=== PATIENT | female | born 1940 | race Caucasian/White ===

== ENCOUNTER 2018-09-28 16:03 | Inpatient (IN) | payer MEDICARE, MEDICAID ==
[~2018-09-28] VITALS: Ht 162.6 cm; Wt 74.7 kg
[2018-09-28 18:56] VITALS: BP 155/71
[2018-09-28 20:00] VITALS: BP 147/68
[2018-09-28] MEDS ORDERED: GLUCAGON FOR INJ 1 MG VIAL (J1610) SC PRN (20:30)
[2018-09-28] MEDS ORDERED: GLUCOSE 4 GM CHEW TABLET PO PRN (20:30)
[2018-09-28] MEDS ORDERED: DEXTROSE 50% 50 ML SYRINGE IV PRN (20:30)
[2018-09-28] MEDS ORDERED: ONDA8TAB7 PO (20:59)
[2018-09-28] MEDS ORDERED: ISOS30TA4 PO (20:59)
[2018-09-28] MEDS ORDERED: FURO20TA2 PO (20:59)
[2018-09-28] MEDS ORDERED: BUPR150T3 PO (20:59)
[2018-09-28] MEDS ORDERED: CYCL5TAB PO (20:59)
[2018-09-28] MEDS ORDERED: CARV25TA PO (20:59)
[2018-09-28] MEDS ORDERED: LORA1TAB12 PO (20:59)
[2018-09-28] MEDS ORDERED: AMLO5TAB6 PO (20:59)
[2018-09-28] MEDS ORDERED: GABA-843 PO (20:59)
[2018-09-28] MEDS ORDERED: HYDR-643 PO (20:59)
[2018-09-28] MEDS ORDERED: FOLI1TAB11 PO (20:59)
[2018-09-28] MEDS ORDERED: HUMA100I3 SC (20:59)
[2018-09-28] MEDS ORDERED: ASPI81TAEC PO (20:59)
[2018-09-28] MEDS ORDERED: SYNT25TA PO (20:59)
[2018-09-28] MEDS ORDERED: TYLE325T5 PO (20:59)
[2018-09-28] MEDS ORDERED: ABIL1TAB13 PO (20:59)
[2018-09-28] MEDS ORDERED: BRIL90TA PO (20:59)
[2018-09-28] MEDS ORDERED: OXYC-517 PO (20:59)
[2018-09-28] MEDS ORDERED: FERR1TAB8 PO (20:59)
[2018-09-28] MEDS ORDERED: PANT40TA3 PO (20:59)
[2018-09-28] MEDS ORDERED: MAGN400T2 PO (20:59)
[2018-09-28] MEDS: HumaLOG INSULIN (NovoLOG) PER UNIT SC SCH (21:00)
[2018-09-28] MEDS ORDERED: NS 1,000 ML IV SCH (21:45)
[2018-09-28] MEDS ORDERED: ONDANSETRON 4 MG TAB (S0181) PO PRN (22:00)
[2018-09-28] MEDS ORDERED: hydrOXYzine 10 MG TAB PO PRN (22:00)
--- NOTE | 2018-09-28 22:07 | REPVR ---
EXAM: CT Chest Without Contrast EXAM DATE/TIME: 09/28/2018 9:36 PM CLINICAL HISTORY: 77 years old, female; Signs and symptoms; Shortness of breath; Prior surgery; Additional info: SOB TECHNIQUE: Axial computed tomography images of the chest without intravenous contrast. All CT scans at this facility use at least one of these dose optimization techniques: automated exposure control; mA and/or kV adjustment per patient size (includes targeted exams where dose is matched to clinical indication); or iterative reconstruction. Coronal and sagittal reformatted images were created and reviewed. MIP reconstructed images were created and reviewed. COMPARISON: No relevant prior studies available. FINDINGS: Lungs: Multiple geographic okay, semiopaque and ground glass opacities in the right upper, right middle, and lower lobes may indicate multifocal pneumonitis. Parenchymal scarring and/or atelectasis left lung base. Pleural space: Small right pleural effusion. Pleural thickening left lung base. Heart: There is severe atherosclerotic calcification of the coronary arteries. Status post CABG. Pulmonary arteries: Enlarged pulmonary arteries may indicate the presence of pulmonary arterial hypertension. Aorta: The aorta demonstrates mild atherosclerotic calcification. Lymph nodes: Unremarkable. No enlarged lymph nodes. Bones/joints: Status post sternotomy with diastases of the sternum. The spine demonstrates mild degenerative changes. Soft tissues: Unremarkable. IMPRESSION: 1. Multiple geographic okay, semiopaque and ground glass opacities in the right upper, right middle, and lower lobes may indicate multifocal pneumonitis. 2. Status post sternotomy with diastases of the sternum. Electronically signed by: Ollie Richard On 09/28/2018 22:07:02 PM
[2018-09-28 22:18] LABS: HEMATOCRIT 28.8 % (36.0-47.0); HEMOGLOBIN 9.3 g/dl (12.0-15.5); MEAN CORPUSCULAR HEMOGLOBIN 29.9 pg (27.0-33.0); MEAN CORPUSCULAR HGB CONC 32.3 g/dl (32.0-36.5); MEAN CORPUSCULAR VOLUME 92.6 fl (80.0-96.0); PLATELET COUNT, AUTOMATED 243 10^3/uL (150-450); RED BLOOD COUNT 3.11 10^6/uL (4.00-5.40); WHITE BLOOD COUNT 6.9 10^3/uL (4.0-10.0)
[2018-09-28] MEDS: GABAPENTIN 300 MG CAP PO SCH (22:38)
[2018-09-28 22:40] LABS: CREATININE FOR GFR 2.91 MG/DL (0.55-1.30); GLOMERULAR FILTRATION RATE 16.7 (>39); POTASSIUM SERUM 4.2 MEQ/L (3.5-5.1)
[2018-09-28] MEDS: IPRATROPIUM 0.5MG/ALBUTEROL 2.5MG INH SOL UD 3ML (DUONEB)(J7620) NEB PRN (22:40)
[2018-09-28] MEDS: ACETAMINOPHEN TAB 650MG DOSE (2X325MG) PO PRN (22:46)
[2018-09-28] MEDS: LORazepam 1 MG TAB PO PRN (22:46)
[2018-09-28] MEDS: DOXYCYCLINE HYCLATE 100 MG in D5W MINI-BAG PLUS 100 ML IV SCH (23:36)
[2018-09-28] MEDS: NORCO, ANEXSIA 5/325MG TABLET (HYDROcodone/ACETAMINOPHEN) PO PRN (23:43)
[2018-09-29] VITALS (7 sets, daily range): BP systolic 133–165; BP diastolic 61–77
--- NOTE | 2018-09-29 00:38 | HPEPDOC ---
[facility] Medical History & Physical Date of Admission Sep 28, 2018 Attending Physician: DEANDRA HUDSON MD History and Physical CHIEF COMPLAINT: Shortness of Breath HISTORY OF PRESENT ILLNESS: Patient is a 77 year old female who was transferred to [facility] from [facility] for increased level of care due to worsening kidney function, decompensated systolic congestive heart failure, and right lobe pneumonia. She was recently hospitalized in [place] with hypothyroid, bradycardia, hypothermia, chronic systolic heart failure, altered mental status, and acute on chronic renal failure. She was discharged on 09/09/18 and sent to [facility] for rehab She was discharged home on 09/23/2018. She subsequently presented to the [facility] emergency department after developing nasal congestion, cough, and shortness of breath. The patient had indicated that there was confusion regarding her medications and she had not received lasix for several days as well as several of her blood pressure medications. In the [facility] emergency department the patient was found to have an elevated BNP with abnormal lung sounds and felt to be in CHF exacerbation. Additionally, chest x-ray revealed a right perihilar pneumonia. The patient had been afebrile and without a white count. She was subsequently ad mitted. At [facility] she received IV Azithromycin and IV Rocephin for suspected right perihilar pneumonia. The patient was treated for possible CHF with aggressive diuresis with IV lasix. Patient does have acute on chronic renal failure and was found to have an increasing Cr from 2.5 to 2.84. Additionally, the patient was anemic likely secondary to her renal failure and received 2 units of PRBC. The patient received an additional 80 mg IV lasix and was transferred to [facility]. The patient currently follows with Dr. Yoo of cardiology. He was made aware of the case. Upon arrival at [facility] the patient stated that she continues to feel short of breath. She denies any fevers or chills. She does complain of pain in her left leg and right thigh. She states that she frequently gets cramps there. She denies any shortness of breath. She does continue to have a dry cough and denies any sputum production or congestion at this time. Patient did receive a CT chest w/o contrast upon arrival to discern if she has a true pneumonia vs a pleural effusion. Her Chest Ct revealed multiple semiopaque and ground glass opacities in the right upper, right middle, and lower lobes suggestive of multifocal pneumonia. Patient was subsequently started on IV doxycycline and Rocephin. PAST MEDICAL HISTORY: 1. Systolic Congestive Heart Failure (EF 39% 08/01/2018) 2. DMII 3. Hypertension 4. Peripheral Neuropathy 5. CAD with stent placement 6. CKD Stage IV 7. Hypothyroidism 8. Peripheral Artery Disease 9. Depression PAST SURGICAL HISTORY: 1. CAD with Stents placed. Last stent placed 1 year ago 2. BKA of right lower extremity SOCIAL HISTORY: Denies smoking, alcohol, or illicit drug use. Lives at home with her FAMILY HISTORY: Sister with PAD, diabetes, and CHF ALLERGIES: Please see below. REVIEW OF SYSTEMS: CONSTITUTIONAL: Denies fevers, chills, night sweats, unintentional weight loss or weight gain HEENT: Complains of cough. Denies headache CARDIOVASCULAR: Denies chest pain. Denies palpitations or feelings of the heart racing RESPIRATORY: Complains of shortness of breath at rest and with exertion. Complains of wheezing and cough. Denies sputum production. Denies hemoptysis GASTROINTESTINAL: Denies abdominal pain, diarrhea, constipation, nausea, or vomiting GENITOURINARY: Denies increased frequency or urgency SKIN: Denies rashes or lesions MUSCULOSKELETAL: Complains of pain in her left thigh. NEUROLOGICAL: Denies changes in speech or gait PSYCHIATRIC: Admits to depression and anxiety ENDOCRINE: Denies heat intolerance or cold intolerance HEMATOLOGIC/LYMPHATIC: Denies easy bruising or bleeding HOME MEDICATIONS: Please see below. PHYSICAL EXAMINATION: VITAL SIGNS: Temperature 97.7, pulse 59, respiratory rate 20, blood pressure 147/68, pulse oximetry 98% on 2L NC GENERAL APPEARANCE: Patient is awake alert and oriented. She is lying in bed comfortably and appears in no acute distress. HEENT: Atruamatic normocephalic. Eyes are non-icteric. Mucous membranes are pink and moist. Trachea is midline CARDIOVASCULAR: Normal S1, S2. Regular rate and rhythm. Distant heart sounds. No carotid bruits. No JVD LUNGS: Slightly decreased breath sounds throughout. Egophony on right. Good respiratory effort. Slight scattered wheezing. No rhonci, rales, or crackles ABDOMEN: Obese, soft, nondistended. Nontender to palpation throughout. Positive bowel sounds EXTREMITIES: BKA of right leg. Left dorsalis pedis pulse present via doppler. Decreased sensation of lower limb consistent with chronic PVD changes. Slight 1- 2mm pitting edema present in left lower extremity. NEUROLOGICAL: Speech normal PSYCHIATRIC: Mood and affect appear appropriate LABORATORY DATA: See below. IMAGING: Chest X-ray from [facility] demonstrated cardiomegaly, small bilateral pleural effusions, and a right sided perihilar infiltrate EXAM: CT Chest Without Contrast EXAM DATE/TIME: 09/28/2018 9:36 PM CLINICAL HISTORY: 77 years old, female; Signs and symptoms; Shortness of breath; Prior surgery; Additional info: SOB TECHNIQUE: Axial computed tomography images of the chest without intravenous contrast. All CT scans at this facility use at least one of these dose optimization techniques: automated exposure control; mA and/or kV adjustment per patient size (includes targeted exams where dose is matched to clinical indication); or iterative reconstruction. Coronal and sagittal reformatted images were created and reviewed. MIP reconstructed images were created and reviewed. COMPARISON: No relevant prior studies available. FINDINGS: Lungs: Multiple geographic okay, semiopaque and ground glass opacities in the right upper, right middle, and lower lobes may indicate multifocal pneumonitis. Parenchymal scarring and/or atelectasis left lung base. Pleural space: Small right pleural effusion. Pleural thickening left lung base. Heart: There is severe atherosclerotic calcification of the coronary arteries. Status post CABG. Pulmonary arteries: Enlarged pulmonary arteries may indicate the presence of pulmonary arterial hypertension. Aorta: The aorta demonstrates mild atherosclerotic calcification. Lymph nodes: Unremarkable. No enlarged lymph nodes. Bones/joints: Status post sternotomy with diastases of the sternum. The spine demonstrates mild degenerative changes. Soft tissues: Unremarkable. IMPRESSION: 1. Multiple geographic okay, semiopaque and ground glass opacities in the right upper, right middle, and lower lobes may indicate multifocal pneumonitis. 2. Status post sternotomy with diastases of the sternum. Electronically signed by: Ollie Richard On 09/28/2018 22:07:02 PM MICROBIOLOGY: Please see below. ASSESSMENT and PLAN 1. Community Acquired Pneumonia -Patient was found to havbe infiltrates in the right upper, right middle, and lower lobes suggestive of multifocal pneumonia. She does complain of shortness of breath. She has remained afebrile and does not have an elevated white count at this time. -IV Rocephin and Doxycycline -Respiratory therapy and Incentive spirometry -Will trend CBC 2. Systolic Congestive Heart Failure Decompensated -Patient has a history of CHF with systolic dysfunction. Her most recent Echo was on 08/01/2018 with an EF 39% -Patient has received aggressive diuresis at [facility]. She has n ot responded well and has had worsening renal function. She does not appear fluid overloaded on exam and may even be more dry. We will hold off on further Diuresis at this point in time. Patient has felton in place for accurate measure of I's&O's -Cardiology consult has been made. Patient follows with Dr. Yoo. He is aware of the patient -1.5L fluid restriction 3. Acute on Chronic Renal Failure -Patient was noted to have worsening renal function. Her Cr was 2.5 and increased to 2.8. -Patient has received gentle hydration. She had received 2 units of PBRCs at [facility] due to anemia likely secondary to her chronic renal failure. -Will trend Cr. -Avoid use of nephrotoxic agents 4. Anemia likely secondary to Chronic Renal Failure -Patient was found to be anemic at [facility]. She has received 2 units PBRCs. -Will trend H&H 5. Hypertension -Patient has a history of hypertension. Will continue home blood pressure medications with exception to lisinopril 6. Hypothyroidism -Will continue home levothyroxine 7. Diabetes Mellitus Type II -Sliding Scale insulin coverage 8. CAD with multiple stent placements -Continue asrpin and Brillinta 9. PVD -Pain management with Vicodin -Brillinta 10. Depression/Anxiety -Continue home medications 11. DVT prophylaxis -TEDS and Sequentials Vital Signs Vital Signs Date Time Temp Pulse Resp B/P (MAP) Pulse Ox O2 Delivery O2 Flow Rate FiO2 09/28/18 18:56 97.7 54 22 155/71 (99) 98 2.0 Home Medications Scheduled Amlodipine Besylate (Amlodipine Besylate) 5 Mg Tab, 5 MG PO DAILY Aripiprazole (Abilify) 2 Mg Tab, 2 MG PO DAILY Aspirin (Aspirin EC) 81 Mg Tabec, 81 MG PO Q2D Bupropion Hcl (Bupropion HCl Xl) 150 Mg Tab, 150 MG PO DAILY Carvedilol (Carvedilol) 25 Mg Tab, 25 MG PO BID Ferrous Sulfate (Ferrous Sulfate) 325 Mg Tab, 325 MG PO TID MORNING, LUNCH AND BEDTIME Folic Acid (Folic Acid) 1 Mg Tab, 1 MG PO DAILY TAKES AT LUNCHTIME Furosemide (Furosemide) 20 Mg Tab, 20 MG PO DAILY Gabapentin (Gabapentin) 300 Mg Cap, 300 MG PO TID Insulin Human Lispro (Humalog) 100 Unit/Ml Inj, 1 DOSE SC ACHS PER SLIDING SCALE Isosorbide Mononitrate (Isosorbide Mononitrate ER) 30 Mg Tab, 90 MG PO QHS Levothyroxine Sodium (Synthroid) 25 Mcg Tab, 25 MCG PO DAILY Magnesium Oxide (Magnesium Oxide) 400 Mg Tab, 400 MG PO DAILY TAKES AT LUNCH Pantoprazole Sodium (Pantoprazole Sodium) 40 Mg Tab, 40 MG PO DAILY Ticagrelor Base (Brilinta) 90 Mg Tab, 90 MG PO BID Scheduled PRN Acetaminophen (Tylenol) 325 Mg Tab, 650 MG PO Q4H PRN for PAIN Cyclobenzaprine HCl (Cyclobenzaprine HCl) 5 Mg Tab, 5 MG PO TID PRN for MUSCLE SPASMS Hydroxyzine HCl (Hydroxyzine HCl) 10 Mg Tab, 10 MG PO TID PRN for ANXIETY Lorazepam (Lorazepam) 1 Mg Tab, 1 MG PO BID PRN for ANXIETY Ondansetron HCl (Ondansetron HCl) 8 Mg Tab, 8 MG PO TID PRN for NAUSEA Oxycodone HCl (Oxycodone HCl) 5 Mg Tab, 5 MG PO QID PRN for PAIN Allergies Coded Allergies: Ciprofloxacin (Verified Allergy, Mild, Itchy, 09/28/18) Atorvastatin (Verified Allergy, Unknown, 09/28/18) Metoprolol (Verified Allergy, Unknown, 09/28/18) Sulfa Antibiotics (Verified Allergy, Unknown, 09/28/18) GME ATTESTATION GME ATTESTATION My faculty preceptor for this patient encounter was physically present during the encounter and was fully available. All aspects of the patient interview, examination, medical decision making process, and medical care plan development were reviewed and approved by the faculty preceptor. The faculty preceptor is aware and concurs with the plan as stated in the body of this note and will attest to such by his/her cosignature. KARINA HOFFMAN DO Sep 28, 2018 20:56
[2018-09-29 05:44] LABS: HEMATOCRIT 26.2 % (36.0-47.0); HEMOGLOBIN 8.5 g/dl (12.0-15.5); MEAN CORPUSCULAR HEMOGLOBIN 29.5 pg (27.0-33.0); MEAN CORPUSCULAR HGB CONC 32.4 g/dl (32.0-36.5); PLATELET COUNT, AUTOMATED 223 10^3/uL (150-450); RED BLOOD COUNT 2.88 10^6/uL (4.00-5.40); WHITE BLOOD COUNT 6.4 10^3/uL (4.0-10.0)
[2018-09-29] MEDS: LEVOTHYROXINE 25MCG TABLET (0.025MG) PO SCH (05:51)
[2018-09-29 05:58] LABS: CALCIUM LEVEL 7.5 MG/DL (8.8-10.2); CREATININE FOR GFR 2.85 MG/DL (0.55-1.30); GLOMERULAR FILTRATION RATE 17.1 (>39); POTASSIUM SERUM 4.3 MEQ/L (3.5-5.1)
[2018-09-29] MEDS: HumaLOG INSULIN (NovoLOG) PER UNIT SC SCH ×4 (07:30→20:20)
[2018-09-29] MEDS: PANTOPRAZOLE 40MG TAB (PROTONIX) PO SCH (08:30)
[2018-09-29] MEDS: GABAPENTIN 300 MG CAP PO SCH ×3 (08:31→20:32)
[2018-09-29] MEDS: buPROPion **XL** TABLET 150MG (WELLBUTRIN XL) PO SCH (08:31)
[2018-09-29] MEDS: TICAGRELOR 90 MG TABLET (BRILINTA) PO SCH ×2 (08:32→20:32)
[2018-09-29] MEDS: ARIPiprazole 2 MG TAB PO SCH (08:33)
[2018-09-29] MEDS: FERROUS SULFATE 325MG TAB PO SCH ×3 (08:33→20:31)
[2018-09-29] MEDS: CARVedilol 12.5 MG TAB PO SCH ×2 (09:00→20:32)
[2018-09-29] MEDS ORDERED: amLODIPine 5 MG TAB PO SCH (09:00)
--- NOTE | 2018-09-29 09:37 | REP ---
Portable chest x-ray: Sitting AP view. History: Short of breath. Comparison is made with yesterday's chest CT. Findings: Cardiomegaly is observed unchanged. Pleural angles are sharp. There is some linear fibrosis along the left heart border versus plate-like atelectasis. Coronary artery stent material is seen. EKG electrodes are noted. There are some increased markings in the right upper lobe faintly seen corresponding to yesterday's CT parenchymal findings of an infiltrate. Subtle increased markings are seen in the left upper lobe and left base. The aorta is calcific and tortuous. Impression: Cardiomegaly. Subtle infiltrate pattern noted in the upper lobes and the left base. Electronically Signed by Joaquin Rm MD 09/29/2018 09:28 A
[2018-09-29] MEDS: IPRATROPIUM 0.5MG/ALBUTEROL 2.5MG INH SOL UD 3ML (DUONEB)(J7620) NEB PRN (10:43)
--- NOTE | 2018-09-29 10:48 | IPNPDOC ---
Text Note Date of Service The patient was seen on 09/29/18. NOTE Subjective: Patient was interviewed and examined at bedside in the PCU this morning. She reports improvement in her leg pain. Cough has improved but her throat is still sore. Denies shortness or breath or trouble breathing. REVIEW OF SYSTEMS: CONSTITUTIONAL: Denies fevers, chills, night sweats, unintentional weight loss or weight gain HEENT: Complains of cough and resultant sore throat. Denies headache, rhinorrhea or nasal congestion. CARDIOVASCULAR: Denies chest pain. Denies palpitations or feelings of the heart racing RESPIRATORY: Complains improved shortness of breath at rest. Denies sputum production. Denies hemoptysis, using 2L of O2. GASTROINTESTINAL: Denies abdominal pain, diarrhea, constipation, nausea, or vomiting GENITOURINARY: Denies increased frequency or urgency, Felton in place SKIN: Denies rashes or lesions MUSCULOSKELETAL: Complains of pain in her left thigh and foot, improved this morning NEUROLOGICAL: Denies changes in speech or gait PSYCHIATRIC: Admits to history of depression and anxiety ENDOCRINE: Denies heat intolerance or cold intolerance HEMATOLOGIC/LYMPHATIC: Denies easy bruising or bleeding Objective: Vitals: (see below) GENERAL APPEARANCE: Patient is awake alert and oriented. She is lying in bed comfortably and appears in no acute distress. HEENT: Atruamatic normocephalic. Eyes are non-icteric. Mucous membranes are pink and moist. Trachea is midline CARDIOVASCULAR: Normal S1, S2. Regular rate and rhythm. Distant heart sounds. No carotid bruits. No JVD LUNGS: Slightly decreased breath sounds throughout. Crackles with expiratory wheezing appreciated on the right. No rhonchi or rales. ABDOMEN: Obese, soft, nondistended. Nontender to palpation throughout. Positive bowel sounds EXTREMITIES: BKA of right leg. Decreased sensation of lower limb consistent with chronic PVD changes. Slight 1-2mm pitting edema still present in left lower extremity. NEUROLOGICAL: Speech normal PSYCHIATRIC: Mood and affect appear appropriate Labs (see below) Images: Chest CT (09/28/18): 1. Multiple semiopaque and ground glass opacities in the right upper, right middle, and lower lobes may indicate multifocal pneumonitis. Status post sternotomy with diastases of the sternum. Assessment/Plan 1. Community Acquired Pneumonia -Patient was found to have infiltrates in the right upper, right middle, and lower lobes suggestive of multifocal pneumonia. She does complain of shortness of breath. She has remained afebrile and does not have an elevated white count at this time. -IV Rocephin and Doxycycline -Respiratory therapy and Incentive spirometry -White count remains low this morning 2. Systolic Congestive Heart Failure Decompensated -Patient has a history of CHF with systolic dysfunction. Her most recent Echo was on 08/01/2018 with an EF 39% -We will hold off on further Diuresis at this point in time given that the patient was aggressively dialyzed prior to presentation. Patient has felton in place for accurate measure of I's&O's -Cardiology consult has been made and we appreciate their input. Patient follows with Dr. Yoo. He is aware of the patient -Remain on 1.5L fluid restriction 3. Acute on Chronic Renal Failure -Patient was noted to have worsening renal function. Improvement in Cr from 2.91 to 2.8, continue to trend Cr -Patient has received gentle hydration. She had received 2 units of PBRCs at [facility] due to anemia likely secondary to her chronic renal failure. -Avoid use of nephrotoxic agents 4. Anemia likely secondary to Chronic Renal Failure -Patient was found to be anemic at [facility]. She has received 2 units PBRCs. -Decreased H/H of 8.5/26.2 -Continue to trend H&H 5. Hypertension -Patient has a history of hypertension. Will continue home blood pressure medications with exception to lisinopril -Pressures remain soft this morning, will hold patient's carvedilol at this time 6. Hypothyroidism -Will continue home levothyroxine 7. Diabetes Mellitus Type II -Sliding Scale insulin coverage 8. CAD with multiple stent placements -Continue Aspirin and Ticagrelor 9. PVD -Pain management with Vicodin -Ticagrelor 10. Depression/Anxiety -Continue home medications DVT prophy: TEDS and Sequentials Dispo: Patient will likely be remaining in the hospital for the rest of the week and possibly the weekend. D/C pending clinical improvement. VS,Fishbone, I+O VS, Fishbone, I+O Laboratory Tests 09/28/18 22:09 Red Blood Count 3.11 L, Mean Corpuscular Volume 92.6, Mean Corpuscular Hemoglob in 29.9, Mean Corpuscular Hemoglobin Concent 32.3, Red Cell Distribution Width 17.7 H, Calcium Level 8.0 L 09/29/18 05:23 Red Blood Count 2.88 L, Mean Corpuscular Volume 91.0, Mean Corpuscular Hemoglobin 29.5, Mean Corpuscular Hemoglobin Concent 32.4, Red Cell Distribution Width 17.5 H, Calcium Level 7.5 L Vital Signs Date Time Temp Pulse Resp B/P (MAP) Pulse Ox O2 Delivery O2 Flow Rate FiO2 09/29/18 09:06 54 165/73 09/29/18 08:00 97.8 22 100 2.0 I&O- Last 24 Hours up to 6 AM 09/29/18 05:59 Intake Total 800 ml Output Total 800 ml Balance 0 ml GME ATTESTATION GME ATTESTATION My faculty preceptor for this patient encounter was physically present during the encounter and was fully available. All aspects of the patient interview, examination, medical decision making process, and medical care plan development were reviewed and approved by the faculty preceptor. The faculty preceptor is aware and concurs with the plan as stated in the body of this note and will attest to such by his/her cosignature. MANOJ VALENZUELA DO Sep 29, 2018 10:48
[2018-09-29] MEDS: DOXYCYCLINE HYCLATE 100 MG in D5W MINI-BAG PLUS 100 ML IV SCH ×2 (11:18→23:47)
[2018-09-29] MEDS ORDERED: amLODIPine 5 MG TAB PO ONE (11:30)
[2018-09-29 12:44] LABS: CALCIUM LEVEL 7.5 MG/DL (8.8-10.2); CHOLESTEROL RISK RATIO 3.416 (<5); CREATININE FOR GFR 2.82 MG/DL (0.55-1.30); GLOMERULAR FILTRATION RATE 17.3 (>39); MB/CK RELATIVE INDEX 1.07 (< OR =4); POTASSIUM SERUM 4.1 MEQ/L (3.5-5.1); TROPONIN I 0.03 NG/ML (< 0.10)
[2018-09-29] MEDS: cefTRIAXone SOD 1 GM in D5W MINI-BAG PLUS 50 ML IV SCH (13:02)
[2018-09-29] MEDS: MAGNESIUM OXIDE 400 MG TAB (MAG-OX) PO SCH (13:03)
[2018-09-29] MEDS: FOLIC ACID 1 MG TAB PO SCH (13:04)
[2018-09-29] MEDS: NORCO, ANEXSIA 5/325MG TABLET (HYDROcodone/ACETAMINOPHEN) PO PRN ×3 (13:59→20:33)
[2018-09-29] MEDS: LORazepam 1 MG TAB PO PRN (20:31)
[2018-09-29] MEDS: ISOSORBIDE MON. (IMDUR) 30 MG XR TAB PO SCH (20:32)
[2018-09-29] MEDS: ACETAMINOPHEN TAB 650MG DOSE (2X325MG) PO PRN (23:47)
[2018-09-30] VITALS (7 sets, daily range): BP systolic 140–175; BP diastolic 63–79
[2018-09-30] MEDS: NORCO, ANEXSIA 5/325MG TABLET (HYDROcodone/ACETAMINOPHEN) PO PRN ×3 (03:39→20:31)
[2018-09-30 05:36] LABS: HEMATOCRIT 24.7 % (36.0-47.0); HEMOGLOBIN 7.9 g/dl (12.0-15.5); MEAN CORPUSCULAR HEMOGLOBIN 29.7 pg (27.0-33.0); MEAN CORPUSCULAR VOLUME 92.9 fl (80.0-96.0); PLATELET COUNT, AUTOMATED 196 10^3/uL (150-450); RED BLOOD COUNT 2.66 10^6/uL (4.00-5.40); WHITE BLOOD COUNT 4.8 10^3/uL (4.0-10.0)
[2018-09-30] MEDS: LEVOTHYROXINE 25MCG TABLET (0.025MG) PO SCH (05:41)
[2018-09-30 06:04] LABS: CALCIUM LEVEL 7.4 MG/DL (8.8-10.2); CREATININE FOR GFR 3.02 MG/DL (0.55-1.30); POTASSIUM SERUM 4.3 MEQ/L (3.5-5.1)
[2018-09-30] MEDS: HumaLOG INSULIN (NovoLOG) PER UNIT SC SCH ×4 (07:30→20:32)
--- NOTE | 2018-09-30 08:42 | IPNPDOC ---
Date Seen The patient was seen on 09/30/18. Progress Note Tele: 2 second pause Plan: asymptomatic no c/o chest pain, sob, dizziness, lightheadedness, blood pressure well maintained with MAP 70 hold coreg, 12 lead ekg r/o av block, check TSH, lyme screen VS, I&O, 24H, Fishbone Vital Signs/I&O Vital Signs Date Time Temp Pulse Resp B/P (MAP) Pulse Ox O2 Delivery O2 Flow Rate FiO2 09/30/18 04:12 18 09/30/18 04:00 98.0 61 154/74 (100) 98 09/29/18 20:00 1.0 I&O- Last 24 Hours up to 6 AM 09/30/18 06:00 Intake Total 930 ml Output Total 1475 ml Balance -545 ml Laboratory Data 24H LABS Laboratory Tests 2 09/29/18 11:32: Bedside Glucose (Misc Panel) 117H 09/29/18 11:38: Anion Gap 9, Glomerular Filtration Rate 17.3L, Lactic Acid Level 1.7, Calcium Level 7.5L, Total Creatine Kinase 318H, Creatine Kinase MB 3.0, Creatine Kinase MB Relative Index 1.07, Troponin I 0.03, [id number]-[id number]-Type Natriuretic Peptide 39621F, Triglycerides Level 129, LDL Cholesterol 90, Total Cholesterol 164, Non- HDL Cholesterol (LDL + VLDL) 116, Total HDL Cholesterol 48, Cholesterol/HDL Rati o 3.416 09/29/18 16:38: Bedside Glucose (Misc Panel) 82L 09/29/18 20:15: Bedside Glucose (Misc Panel) 132H 09/30/18 05:09: Nucleated Red Blood Cells % (auto) 0.0, Anion Gap 8, Glomerular Filtration Rate 16.0L, Blood Urea Nitrogen 46H, Creatinine 3.02H, Sodium Level 135L, Potassium Level 4.3, Chloride Level 106, Carbon Dioxide Level 21, Calcium Level 7.4L CBC/BMP Laboratory Tests 09/29/18 11:38 09/30/18 05:09 Red Blood Count 2.66 L, Mean Corpuscular Volume 92.9, Mean Corpuscular Hemoglobin 29.7, Mean Corpuscular Hemoglobin Concent 32.0, Red Cell Distribution Width 17.5 H, Calcium Level 7.4 L DEANDRA HUDSON MD Sep 30, 2018 08:42
[2018-09-30 09:12] LABS: HEMATOCRIT 27.1 % (36.0-47.0); HEMOGLOBIN 8.7 g/dl (12.0-15.5)
[2018-09-30 09:37] LABS: PERCENT SATURATION 11.4 % (13.2-45.0)
[2018-09-30] MEDS: FERROUS SULFATE 325MG TAB PO SCH ×3 (10:15→20:31)
[2018-09-30] MEDS: buPROPion **XL** TABLET 150MG (WELLBUTRIN XL) PO SCH (10:15)
[2018-09-30] MEDS: GABAPENTIN 300 MG CAP PO SCH ×3 (10:15→20:30)
[2018-09-30] MEDS: ASPIRIN 81 MG ENTERIC TAB PO SCH (10:15)
[2018-09-30] MEDS: TICAGRELOR 90 MG TABLET (BRILINTA) PO SCH ×2 (10:15→20:52)
[2018-09-30] MEDS: PANTOPRAZOLE 40MG TAB (PROTONIX) PO SCH (10:15)
[2018-09-30] MEDS: amLODIPine 10 MG TAB PO SCH (10:15)
[2018-09-30] MEDS: ARIPiprazole 2 MG TAB PO SCH (10:16)
--- NOTE | 2018-09-30 10:17 | REP ---
Urinary tract sonography: History: Renal failure. Findings: Scanning of the level urinary bladder demonstrates that it is empty. A Booth catheter balloon is visible. Renal cortical echogenicity pattern is normal and renal contours are smooth on both sides. There is no evidence of hydronephrosis. Right kidney measures 9.5 x 5.1 x 4.7 cm left renal dimensions are 10.8 x 4.7 x 4.9 cm. No mass or cyst is seen. Impression: No evidence of obstructive uropathy. Urinary bladder is empty with Booth catheter. No abnormality. Electronically Signed by Joaquin Rm MD 09/30/2018 10:08 A
[2018-09-30] MEDS: DOXYCYCLINE HYCLATE 100 MG in D5W MINI-BAG PLUS 100 ML IV SCH ×2 (11:13→23:11)
--- NOTE | 2018-09-30 12:45 | IPNPDOC ---
Text Note Date of Service The patient was seen on 09/30/18. NOTE Subjective: Patient was interviewed and examined at bedside in the PCU this morning. She is in good spirits and reports improvement in her breathing and sore throat. She continues to describe some discomfort in her L leg, but reports that it has improved compared to yesterday. Her labs demonstrate continued anemia of chronic disease. She denies being SOB, dizzy, or fatigued. She has not yet had a BM in the hospital, though she shares that this is normal for her. Felton catheter in place, urine does not appear dehydrated or over concentrated. REVIEW OF SYSTEMS: CONSTITUTIONAL: Denies fevers, chills, night sweats, unintentional weight loss or weight gain HEENT: Complains of cough and resultant sore throat. Denies headache, rhinorrhea or nasal congestion. CARDIOVASCULAR: Denies chest pain. Denies palpitations or feelings of the heart racing RESPIRATORY: Complains improved shortness of breath at rest. Denies sputum production. Denies hemoptysis, no longer requiring supplemental O2 GASTROINTESTINAL: Denies abdominal pain, diarrhea, constipation, nausea, or vomiting, has yet to have BM - this is normal as she usually stools 1-2x weekly. GENITOURINARY: Denies increased frequency or urgency, Felton in place. SKIN: Denies rashes or lesions MUSCULOSKELETAL: Complains of pain in her left thigh and foot, improved over yesterday NEUROLOGICAL: Denies changes in speech, vision or hearing. She complains of continued numbness in her distal L leg, but this is not new PSYCHIATRIC: Admits to history of depression and anxiety ENDOCRINE: Denies heat intolerance or cold intolerance HEMATOLOGIC/LYMPHATIC: Denies easy bruising or bleeding Objective: Vitals: (see below) GENERAL APPEARANCE: Patient is awake alert and oriented. She is lying in bed comfortably and appears in no acute distress. HEENT: Atruamatic normocephalic. Eyes are non-icteric. Mucous membranes are pink and moist. Trachea is midline CARDIOVASCULAR: Normal S1, S2. Regular rate and rhythm. Distant heart sounds. No carotid bruits. No JVD LUNGS: Slightly decreased breath sounds throughout. Crackles with expiratory wheezing appreciated on the right. No rhonchi or rales. ABDOMEN: Obese, soft, nondistended. Nontender to palpation throughout. Positive bowel sounds EXTREMITIES: BKA of right leg. Decreased sensation of lower limb consistent with chronic PVD changes. Slight 1-2mm pitting edema still present in left lower extremity. NEUROLOGICAL: Speech normal PSYCHIATRIC: Mood and affect appear appropriate Labs (see below) Images: Chest CT (09/28/18): Multiple semiopaque and ground glass opacities in the right upper, right middle, and lower lobes may indicate multifocal pneumonitis. Status post sternotomy with diastases of the sternum. Chest XR (09/29/18): Cardiomegaly. Subtle infiltrate pattern noted in the upper lobes and the left base. Renal U/S (09/30/18): No evidence of obstructive uropathy. Urinary bladder is empty with Felton catheter. No abnormality. Assessment/Plan Tabby Sosa is a 77 year old female who was admitted for suspected community acquired pneumonia in the setting of decompensated systolic CHF. 1. Community Acquired Pneumonia -Patient was found to have infiltrates in the right upper, right middle, and lower lobes suggestive of multifocal pneumonia. She does complain of shortness of breath. She has remained afebrile and does not have an elevated white count at this time. -IV Rocephin and Doxycycline -Respiratory therapy and Incentive spirometry -White count remains low 2. Systolic Congestive Heart Failure Decompensated -Patient has a history of CHF with systolic dysfunction. Her most recent Echo was on 08/01/2018 with an EF 39% -We will hold off on further Diuresis at this point in time given that the patient was aggressively dialyzed prior to presentation. Patient has felton in place for accurate measure of I's&O's -Cardiology consult has been made and we appreciate their input. Patient follows with Dr. Yoo. He is aware of the patient -Remain on 1.5L fluid restriction 3. Asymptomatic 2-second pause on Tele - Asymptomatic no c/o chest pain, sob, dizziness, lightheadedness, - Blood pressure well maintained with MAP 70 - Hold coreg, 12 lead ekg r/o av block, check TSH, lyme screen 4. Acute on Chronic Renal Failure -Patient was noted to have worsening renal function. Cr is 3.02 today. Nephrology consulted and we appreciate their input. Continue to trend Cr. -Patient has received gentle hydration. She had received 2 units of PBRCs at [facility] due to anemia likely secondary to her chronic renal failure. -Avoid use of nephrotoxic agents 5. Anemia likely secondary to Chronic Renal Failure -Patient was found to be anemic at [facility]. She received 2 units PBRCs. -Decreased H/H of 7.9/24.7, repeat H/H shows some improvement of 8.7/27.1. -Continue to trend H&H 6. Hypertension -Patient has a history of hypertension. Will continue home blood pressure medications with exception to lisinopril -Will hold patient's carvedilol given 2-second pause on Tele -If pressures remain continue to elevate, a new medication may be necessary 7. Hypothyroidism - TSH of 7.02 today - Will continue home levothyroxine, patient's dosage may need to be increased at time of discharge 8. Diabetes Mellitus Type II -Sliding Scale insulin coverage 9. CAD with multiple stent placements -Continue Aspirin and Ticagrelor 10. PVD -Pain management with Vicodin -Ticagrelor 11. Depression/Anxiety -Continue home medications DVT prophy: TEDS and Sequentials Dispo: Patient will likely be remaining in the hospital for the rest of the week and possibly the weekend. D/C pending clinical improvement. VS,Fishbone, I+O VS, Fishbone, I+O Laboratory Tests 09/29/18 11:38 09/30/18 05:09 Red Blood Count 2.66 L, Mean Corpuscular Volume 92.9, Mean Corpuscular Hemoglobin 29.7, Mean Corpuscular Hemoglobin Concent 32.0, Red Cell Distribution Width 17.5 H, Calcium Level 7.4 L Vital Signs Date Time Temp Pulse Resp B/P (MAP) Pulse Ox O2 Delivery O2 Flow Rate FiO2 09/30/18 04:12 18 09/30/18 04:00 98.0 61 154/74 (100) 98 09/29/18 20:00 1.0 I&O- Last 24 Hours up to 6 AM 09/30/18 06:00 Intake Total 930 ml Output Total 1475 ml Balance -545 ml GME ATTESTATION GME ATTESTATION My faculty preceptor for this patient encounter was physically present during the encounter and was fully available. All aspects of the patient interview, examination, medical decision making process, and medical care plan development were reviewed and approved by the faculty preceptor. The faculty preceptor is aware and concurs with the plan as stated in the body of this note and will attest to such by his/her cosignature. MANOJ VALENZUELA DO Sep 30, 2018 06:24
[2018-09-30] MEDS: cefTRIAXone SOD 1 GM in D5W MINI-BAG PLUS 50 ML IV SCH (13:15)
[2018-09-30] MEDS: MAGNESIUM OXIDE 400 MG TAB (MAG-OX) PO SCH (13:16)
[2018-09-30] MEDS: FOLIC ACID 1 MG TAB PO SCH (13:16)
[2018-09-30 14:26] LABS: HEMATOCRIT 28.1 % (36.0-47.0); HEMOGLOBIN 9.3 g/dl (12.0-15.5)
--- NOTE | 2018-09-30 18:30 | ECHO ---
DATE OF PROCEDURE: 09/29/2018 REFERRING PHYSICIAN: Dr. Sotelo INDICATION: Dyspnea. Height 163 cm Weight 75 kg. DIMENSIONS: IVS 1.2 LV 5.1 LVPW: 1.2 LA 4.6 Aorta 3.0 IVC 2.4 Mitral E wave velocity 122, A-wave 50 E prime septal 5.9 E prime lateral 8.5. Left atrial volume index 33. FINDINGS: The study is of fair technical quality with difficult visualization. Left ventricle is of normal size. There is a wall motion abnormality involving septum and apex, possibly at least in part due to prior open heart surgery. Remaining LV segments appear to have normal mobility based on limited views. I estimate overall EF around 45-50%. Right ventricle does not appear enlarged. Left atrium is moderately enlarged. Right atrium appears grossly normal. Aortic valve is sclerotic. It has three cusps and normal mobility. Mitral valve also exhibits degenerative abnormalities with mitral annular calcifications. Tricuspid and pulmonic valves appear normal. No pericardial effusion is noted. Inferior vena cava is dilated and there is minimal collapse with respiration indicative of very high central venous pressure. Aortic root is normal. Aortic arch and abdominal aorta appear grossly normal. Doppler interrogation of aortic valve reveals no significant stenosis or insufficiency. There is mild mitral insufficiency and mild tricuspid insufficiency. Calculated pulmonary artery pressure is at least 50 mmHg corresponding to moderate pulmonary hypertension. Mitral inflow pattern and tissue Doppler imaging of mitral annulus reveal grade 2 diastolic dysfunction. CONCLUSIONS: 1. Study is of limited technical quality. 2. Normal LV size with mild LVH, septal and apical wall motion abnormality and overall EF estimated 45-50%. Grade 2 diastolic dysfunction. 3. Aortic sclerosis but no stenosis or insufficiency. 4. Mild mitral and tricuspid insufficiency. 5. Elevated central venous pressure at least moderate pulmonary hypertension. COMMENT: Subacute bacterial endocarditis (SBE) SBE prophylaxis not recommended. Study is most consistent with diastolic congestive heart failure. MTDD
[2018-09-30] MEDS: ACETAMINOPHEN TAB 650MG DOSE (2X325MG) PO PRN (18:48)
[2018-09-30] MEDS: ISOSORBIDE MON. (IMDUR) 30 MG XR TAB PO SCH (20:30)
[2018-10-01] VITALS (8 sets, daily range): BP systolic 148–185; BP diastolic 70–80
[2018-10-01 05:10] LABS: HEMOGLOBIN 9.2 g/dl (12.0-15.5); MEAN CORPUSCULAR HEMOGLOBIN 29.5 pg (27.0-33.0); MEAN CORPUSCULAR HGB CONC 32.9 g/dl (32.0-36.5); MEAN CORPUSCULAR VOLUME 89.7 fl (80.0-96.0); PLATELET COUNT, AUTOMATED 251 10^3/uL (150-450); RED BLOOD COUNT 3.12 10^6/uL (4.00-5.40); WHITE BLOOD COUNT 4.7 10^3/uL (4.0-10.0)
[2018-10-01 05:42] LABS: CALCIUM LEVEL 7.9 MG/DL (8.8-10.2); CREATININE FOR GFR 2.82 MG/DL (0.55-1.30); GLOMERULAR FILTRATION RATE 17.3 (>39); POTASSIUM SERUM 4.8 MEQ/L (3.5-5.1)
[2018-10-01] MEDS: LEVOTHYROXINE 25MCG TABLET (0.025MG) PO SCH (06:00)
[2018-10-01] MEDS: HumaLOG INSULIN (NovoLOG) PER UNIT SC SCH ×4 (07:20→21:00)
--- NOTE | 2018-10-01 08:25 | REP ---
PA and lateral chest: Comparisons are the portable chest dated 09/[address] dated 09/28/2018. The multifocal infiltrates identified by CT are less apparent on plain films. There is tenting of the pericardium on the left suggesting of pleural adhesion versus subsegmental infiltrate. Cardiac size is enlarged, unchanged. Suspect there is a coronary artery stent. Gissel, mediastinum, skeletal structures are unremarkable. Impression: Tenting of the pericardium on the left suggestive of pleural pericardial adhesion versus subsegmental infiltrate. Electronically Signed by Shawn Carmichael MD 10/01/2018 08:16 A
[2018-10-01] MEDS: **hydrALAZINE** 10 MG TAB PO SCH ×4 (09:15→20:22)
[2018-10-01] MEDS: PANTOPRAZOLE 40MG TAB (PROTONIX) PO SCH (09:15)
[2018-10-01] MEDS: buPROPion **XL** TABLET 150MG (WELLBUTRIN XL) PO SCH (09:15)
[2018-10-01] MEDS: ASCORBIC ACID 500 MG TAB PO SCH (09:15)
[2018-10-01] MEDS: GABAPENTIN 300 MG CAP PO SCH ×3 (09:15→20:21)
[2018-10-01] MEDS: FERROUS SULFATE 325MG TAB PO SCH ×3 (09:15→20:22)
[2018-10-01] MEDS: amLODIPine 10 MG TAB PO SCH (09:15)
[2018-10-01] MEDS: TICAGRELOR 90 MG TABLET (BRILINTA) PO SCH ×2 (09:15→20:22)
[2018-10-01] MEDS: ARIPiprazole 2 MG TAB PO SCH (09:15)
[2018-10-01 09:48] LABS: FREE T3 2.3 PG/ML (2.2-4.0); THYROXINE (T4) 8.3 UG/DL (4.5-12.0)
[2018-10-01] MEDS: DOXYCYCLINE HYCLATE 100 MG in D5W MINI-BAG PLUS 100 ML IV SCH ×2 (11:24→23:31)
[2018-10-01] MEDS: NORCO, ANEXSIA 5/325MG TABLET (HYDROcodone/ACETAMINOPHEN) PO PRN ×3 (11:24→21:03)
--- NOTE | 2018-10-01 11:48 | IPNPDOC ---
Text Note Date of Service The patient was seen on 10/01/18. NOTE Subjective: Patient was interviewed and examined at bedside in the PCU this morning. She does not have any acute complaints this morning and reports feeling close to her baseline functional status. Overnight she did require additional medications for pain in her L leg, which has improved by the time of examination. She reports continued non-productive cough. Denies fevers, chills, N/V. She did have a BM yesterday. Urinary catheter in place to be D/Cd. REVIEW OF SYSTEMS: CONSTITUTIONAL: Denies fevers, chills, night sweats, unintentional weight loss or weight gain HEENT: Complains of non-productive cough and resultant sore throat. Denies headache, rhinorrhea or nasal congestion. CARDIOVASCULAR: Denies chest pain. Denies palpitations or tachycardia RESPIRATORY: Continued improved shortness of breath at rest. Denies sputum production. Denies hemoptysis, no longer requiring supplemental O2 GASTROINTESTINAL: Denies abdominal pain, diarrhea, constipation, nausea, or vomiting, has yet to have BM - this is normal as she usually stools 1-2x weekly. GENITOURINARY: Denies increased frequency or urgency, Booth in place, to be D/Cd SKIN: Denies rashes or lesions MUSCULOSKELETAL: Complains of pain in her left thigh last evening, improved at time of examination NEUROLOGICAL: Denies changes in speech, vision or hearing. She complains of continued numbness in her distal L leg, but this is not new PSYCHIATRIC: Admits to history of depression and anxiety ENDOCRINE: Denies heat intolerance or cold intolerance HEMATOLOGIC/LYMPHATIC: Denies easy bruising or bleeding Objective: Vitals: (see below) GENERAL APPEARANCE: Patient is awake alert and oriented. She is lying in bed comfortably and appears in no acute distress. HEENT: Atraumatic normocephalic. Eyes are non-icteric. Mucous membranes are pink and moist. Trachea is midline CARDIOVASCULAR: Normal S1, S2. Regular rate and rhythm. Distant heart sounds. No carotid bruits. No JVD LUNGS: Slightly decreased breath sounds throughout. Crackles with expiratory wheezing appreciated on the right. No rhonchi or rales. ABDOMEN: Obese, soft, nondistended. Nontender to palpation throughout. Positive bowel sounds EXTREMITIES: BKA of right leg. Decreased sensation of lower limb consistent with chronic PVD changes. Slight 1-2mm pitting edema still present in left lower extremity. NEUROLOGICAL: Speech normal PSYCHIATRIC: Mood and affect appear appropriate Labs (see below) Images: Chest CT (09/28/18): Multiple semiopaque and ground glass opacities in the right upper, right middle, and lower lobes may indicate multifocal pneumonitis. Status post sternotomy with diastases of the sternum. Chest XR (09/29/18): Cardiomegaly. Subtle infiltrate pattern noted in the upper lobes and the left base. Renal U/S (09/30/18): No evidence of obstructive uropathy. Urinary bladder is empty with Booth catheter. No abnormality. CXR (10/01/18): Tenting of the pericardium on the left suggestive of pleural pericardial adhesion versus subsegmental infiltrate. Assessment/Plan Tabby Sosa is a 77 year old female who was admitted for suspected community acquired pneumonia in the setting of decompensated systolic CHF. 1. Community Acquired Pneumonia 2/2 RSV/Influenza A -Patient was found to have infiltrates in the right upper, right middle, and lower lobes suggestive of multifocal pneumonia. She does complain of shortness of breath. She has remained afebrile and does not have an elevated white count at this time. -IV Rocephin and Doxycycline -Respiratory therapy and Incentive spirometry -White count remains low -Blood cultures and Respiratory virus panel positive for RSV and Influenza A H-1 2. Systolic Congestive Heart Failure Decompensated -Patient has a history of CHF with systolic dysfunction. Her most recent Echo was on 08/01/2018 with an EF 39% -We will hold off on further Diuresis at this point in time given that the patient was aggressively dialyzed prior to presentation. Booth to be removed. -Cardiology consult has been made and we appreciate their input. Patient follows with Dr. Yoo. He is aware of the patient -Remain on 1.5L fluid restriction 3. Asymptomatic 2-second pause on Tele - Continued to be asymptomatic no c/o chest pain, sob, dizziness, lightheadedness, - No tele events over night - Blood pressure well maintained with MAP 70 - Lyme pending 4. Acute on Chronic Renal Failure -Patient was noted to have worsening renal function. Cr improved to 2.82 today. Nephrology consulted and we appreciate their input. Continue to trend Cr. -Patient has received gentle hydration. She had received 2 units of PBRCs at [facility] due to anemia likely secondary to her chronic renal failure. -Avoid use of nephrotoxic agents 5. Anemia likely secondary to Chronic Renal Failure -Patient was found to be anemic at [facility]. She received 2 units PBRCs. -H/H of 9.2 -Continue to trend H&H 6. Hypertension -Patient has a history of hypertension. Will continue home blood pressure medications with exception to lisinopril -Will hold patient's carvedilol given 2-second pause on Tele -If pressures remain continue to elevate, a new medication may be necessary 7. Hypothyroidism - TSH of 7.02 today - Increased Levothyroxine dosage to 37.5 mcg from 25 mcg 8. Diabetes Mellitus Type II -Sliding Scale insulin coverage 9. CAD with multiple stent placements -Continue Aspirin -Ticagrelor held last evening 10. PVD -Pain management with Vicodin -Ticagrelor 11. Depression/Anxiety -Continue home medications DVT prophy: TEDS and Sequentials Dispo: Patient will likely be remaining in the hospital for the rest of the week and possibly the weekend. D/C pending clinical improvement. VS,Fishbone, I+O VS, Fishbone, I+O Laboratory Tests 09/30/18 08:50 09/30/18 14:13 10/01/18 04:59 Red Blood Count 3.12 L, Mean Corpuscular Volume 89.7, Mean Corpuscular Hemoglobin 29.5, Mean Corpuscular Hemoglobin Concent 32.9, Red Cell Distribution Width 16.9 H, Calcium Level 7.9 L Vital Signs Date Time Temp Pulse Resp B/P (MAP) Pulse Ox O2 Delivery O2 Flow Rate FiO2 10/01/18 04:00 97.2 56 18 148/80 (102) 99 09/29/18 20:00 1.0 I&O- Last 24 Hours up to 6 AM 10/01/18 06:00 Intake Total 730 ml Output Total 1700 ml Balance -970 ml GME ATTESTATION GME ATTESTATION My faculty preceptor for this patient encounter was physically present during the encounter and was fully available. All aspects of the patient interview, examination, medical decision making process, and medical care plan development were reviewed and approved by the faculty preceptor. The faculty preceptor is aware and concurs with the plan as stated in the body of this note and will attest to such by his/her cosignature. MANOJ VALENZUELA DO Oct 01, 2018 07:18
[2018-10-01] MEDS: FOLIC ACID 1 MG TAB PO SCH (12:32)
[2018-10-01] MEDS: MAGNESIUM OXIDE 400 MG TAB (MAG-OX) PO SCH (12:32)
[2018-10-01] MEDS: cefTRIAXone SOD 1 GM in D5W MINI-BAG PLUS 50 ML IV SCH (12:35)
--- NOTE | 2018-10-01 17:29 | ECGEPIP ---
Stationary ECG Study [facility] Test Date: 2018-09-30 Pat Name: SILVIO BILL Department: Room: [place] [address] Gender: F [employer]: COOPER : 1940 Requested By: DEANDRA Ta Order Number: [id number] Reading MD: Tone Harper Measurements Intervals [place] Rate: 51 P: 7 MA: 181 QRS: 41 QRSD: 96 T: -60 QT: 440 QTc: 408 Interpretive Statements SINUS BRADYCARDIA WITH SINUS ARRHYTHMIA Septal Q waves of uncertain significance Nonspecific ST-T wave abnormalities Comparison tracing not on file Electronically Signed On 10-01-2018 17:29:40 EST by Tone Harper
[2018-10-01] MEDS ORDERED: FUROSEMIDE 40 MG/4 ML VIAL (J1940) IV ONE (18:00)
[2018-10-01] MEDS: ISOSORBIDE MON. (IMDUR) 30 MG XR TAB PO SCH (20:21)
[2018-10-01] MEDS: LORazepam 1 MG TAB PO PRN (20:22)
[2018-10-02] VITALS (7 sets, daily range): BP systolic 134–175; BP diastolic 60–78
[2018-10-02 00:07] LABS: Lyme Disease IgG/IgM Antibodie <0.91 ISR (0.00-0.90); Lyme Disease IgM Ab Quantitati <0.80 index (0.00-0.79)
[2018-10-02] MEDS: NORCO, ANEXSIA 5/325MG TABLET (HYDROcodone/ACETAMINOPHEN) PO PRN ×3 (01:13→16:33)
[2018-10-02] MEDS: hydrOXYzine 25 MG TAB PO PRN ×2 (01:13→13:46)
[2018-10-02] MEDS: ACETAMINOPHEN TAB 650MG DOSE (2X325MG) PO PRN ×2 (04:59→21:11)
[2018-10-02] MEDS: LEVOTHYROXINE 37.5MCG PER 1/2TAB (0.0375MG) PO SCH (04:59)
[2018-10-02 05:25] LABS: HEMATOCRIT 26.7 % (36.0-47.0); HEMOGLOBIN 8.7 g/dl (12.0-15.5); MEAN CORPUSCULAR HEMOGLOBIN 29.3 pg (27.0-33.0); MEAN CORPUSCULAR HGB CONC 32.6 g/dl (32.0-36.5); MEAN CORPUSCULAR VOLUME 89.9 fl (80.0-96.0); PLATELET COUNT, AUTOMATED 255 10^3/uL (150-450); RED BLOOD COUNT 2.97 10^6/uL (4.00-5.40); WHITE BLOOD COUNT 5.7 10^3/uL (4.0-10.0)
[2018-10-02 05:57] LABS: CREATININE FOR GFR 2.83 MG/DL (0.55-1.30); GLOMERULAR FILTRATION RATE 17.3 (>39); POTASSIUM SERUM 4.5 MEQ/L (3.5-5.1)
[2018-10-02] MEDS: HumaLOG INSULIN (NovoLOG) PER UNIT SC SCH ×4 (07:11→20:17)
--- NOTE | 2018-10-02 08:57 | IPNPDOC ---
Date Seen The patient was seen on 10/02/18. Progress Note SUBJECTIVE: On droplet precautions for (+) INFLUENZA on tamiflu. no fever or chills and anxious to go home. pt still w some cough but no sputum sample s/p iv ceftriaxone and iv doxy. allergy to cipro. on cefdinir. bp uncontrlled 150-170 systolic without headache changes in vision chest pain pressure tightness. off coreg due to sinus bradycardia in 50's and 2.5 SECOND SINUS PAUSE. PHYSICAL EXAMINATION: VITAL SIGNS:PLS SEE BELOW GENERAL APPEARANCE: Patient is awake alert and oriented. speaks in full sentences. no use of accessory respiratory muscles She is lying in bed comfortably and appears in no acute distress. HEENT: Atruamatic normocephalic. Eyes are non-icteric. Mucous membranes are pink and moist. Trachea is midline CARDIOVASCULAR: Normal S1, S2. bradycardic Distant heart sounds. No carotid bruits. No JVD LUNGS: Slightly decreased breath sounds throughout. Egophony on right. Good respiratory effort. Slight scattered wheezing. No rhonci, rales, or crackles ABDOMEN: Obese, soft, nondistended. Nontender to palpation throughout. Positive bowel sounds EXTREMITIES: BKA of right leg. Left dorsalis pedis pulse present via doppler. Decreased sensation of lower limb consistent with chronic PVD changes. Slight 1- 2mm pitting edema present in left lower extremity. LABORATORY DATA, MICROBIOLOGY: See below. IMAGING: Chest X-ray from [facility] demonstrated cardiomegaly, small bilateral pleural effusions, and a right sided perihilar infiltrate EXAM: CT Chest Without Contrast EXAM DATE/TIME: 09/28/2018 9:36 PM CLINICAL HISTORY: 77 years old, female; Signs and symptoms; Shortness of breath; Prior surgery; Additional info: SOB TECHNIQUE: Axial computed tomography images of the chest without intravenous contrast. All CT scans at this facility use at least one of these dose optimization techniques: automated exposure control; mA and/or kV adjustment per patient size (includes targeted exams where dose is matched to clinical indication); or iterative reconstruction. Coronal and sagittal reformatted images were created and reviewed. MIP reconstructed images were created and reviewed. COMPARISON: No relevant prior studies available. FINDINGS: Lungs: Multiple geographic okay, semiopaque and ground glass opacities in the right upper, right middle, and lower lobes may indicate multifocal pneumonitis. Parenchymal scarring and/or atelectasis left lung base. Pleural space: Small right pleural effusion. Pleural thickening left lung base. Heart: There is severe atherosclerotic calcification of the coronary arteries. Status post CABG. Pulmonary arteries: Enlarged pulmonary arteries may indicate the presence of pulmonary arterial hypertension. Aorta: The aorta demonstrates mild atherosclerotic calcification. Lymph nodes: Unremarkable. No enlarged lymph nodes. Bones/joints: Status post sternotomy with diastases of the sternum. The spine demonstrates mild degenerative changes. Soft tissues: Unremarkable. IMPRESSION: 1. Multiple geographic okay, semiopaque and ground glass opacities in the right upper, right middle, and lower lobes may indicate multifocal pneumonitis. 2. Status post sternotomy with diastases of the sternum. Electronically signed by: Ollie Richard On 09/28/2018 22:07:02 PM MICROBIOLOGY: Please see below. ASSESSMENT and PLAN Patient is a 77 year old female who was transferred to [facility] from [facility] for increased level of care due to worsening kidney function, decompensated systolic congestive heart failure, and right lobe pneumonia. She was recently hospitalized in [place] with hypothyroid, bradycardia, hypothermia, chronic systolic heart failure, altered mental status, and acute on chronic renal failure. She was discharged on 09/09/18 and sent to [facility] for rehab She was discharged home on 09/23/2018. She subs equently presented to the [facility] emergency department after developing nasal congestion, cough, and shortness of breath. The patient had indicated that there was confusion regarding her medications and she had not received lasix for several days as well as several of her blood pressure medications. In the [facility] emergency department the patient was found to have an elevated BNP with abnormal lung sounds and felt to be in CHF exacerbation. Additionally, chest x-ray revealed a right perihilar pneumonia. The patient had been afebrile and without a white count. She was subsequently admitted. At [facility] she received IV Azithromycin and IV Rocephin for suspected right perihilar pneumonia. The patient was treated for possible CHF with aggressive diuresis with IV lasix. Patient does have acute on chronic renal failure and was found to have an increasing Cr from 2.5 to 2.84. Additionally, the patient was anemic likely secondary to her renal failure and received 2 units of PRBC. The patient received an additional 80 mg IV lasix and was transferred to [facility]. The patient currently follows with Dr. Yoo of cardiology. He was made aware of the case. Upon arrival at [facility] the patient stated that she continues to feel short of breath. She denies any fevers or chills. She does complain of pain in her left leg and right thigh. She states that she frequently gets cramps there. She denies any shortness of breath. She does continue to have a dry cough and denies any sputum production or congestion at this time. Patient did receive a CT chest w/o contrast upon arrival to discern if she has a true pneumonia vs a pleural effusion. Her Chest Ct revealed multiple semiopaque and ground glass opacities in the right upper, right middle, and lower lobes suggestive of multifocal pneumonia. Patient was subsequently started on IV doxycycline and Rocephin. Influenza A/Rhinovirus infection on droplet precautions on tamiflu Community Acquired Pneumonia Patient was found to havbe infiltrates in the right upper, right middle, and lower lobes suggestive of multifocal pneumonia. She does complain of shortness of breath. She has remained afebrile and does not have an elevated white count at this time. s/p Rocephin and Doxycycline on omnicef and po doxy. Respiratory therapy and Incentive spirometry Will trend CBC IV site bleeding no recurrence, back on anticoagulation 2.5 SECOND sinus pause held coreg no recurrence Systolic Congestive Heart Failure Decompensated , repeat Echo 45% EF Patient has a history of CHF with systolic dysfunction. Her most recent Echo was on 08/01/2018 with an EF 39% Patient has received aggressive diuresis at [facility]. She has not responded well and has had worsening renal function. She does not appear fluid overloaded on exam and may even be more dry. We will hold off on further Diuresis at this point in time. Patient has felton in place for accurate measure of I's&O's Cardiology consult has been made. Patient follows with Dr. Yoo. He is aware of the patient 1.5L fluid restriction Acute on Chronic Renal Failure , at baseline creatinine Patient was noted to have worsening renal function. Her Cr was 2.5 and increased to 2.8. Patient has received gentle hydration. She had received 2 units of PBRCs at [facility] due to anemia likely secondary to her chronic renal failure. Will trend Cr.Avoid use of nephrotoxic agents Anemia likely secondary to Chronic Renal Failure Patient was found to be anemic at [facility]. She has received 2 units PBRCs. Will trend H&H Uncontrolled Hypertension Patient has a history of hypertension. Will continue home blood pressure medicat ions with exception to lisinopril. coreg held due to 2.5 second sinus pause and bradycardia. on hydralazine and isosorbide. Hypothyroidism Will continue home levothyroxine Diabetes Mellitus Type II Sliding Scale insulin coverage , consistent carbs diet CAD with multiple stent placements Continue asrpin and Brillinta PVD Pain management with Vicodin Brillinta Depression/Anxiety Continue home medications DVT prophylaxis TEDS and Sequentials VS, I&O, 24H, Fishbone Vital Signs/I&O Vital Signs Date Time Temp Pulse Resp B/P (MAP) Pulse Ox O2 Delivery O2 Flow Rate FiO2 10/02/18 04:00 97.7 67 20 162/68 (99) 99 09/29/18 20:00 1.0 I&O- Last 24 Hours up to 6 AM 10/02/18 06:00 Intake Total 1880 ml Output Total 2210 ml Balance -330 ml Laboratory Data 24H LABS Laboratory Tests 2 10/01/18 09:02: Thyroxine (T4) 8.3, Free Triiodothyronine 2.3 10/01/18 12:40: Bedside Glucose (Misc Panel) 146H 10/01/18 16:53: 10/01/18 17:13: Bedside Glucose (Misc Panel) 102 10/01/18 21:05: Bedside Glucose (Misc Panel) 149H 10/02/18 04:48: Nucleated Red Blood Cells % (auto) 0.0, Anion Gap 7L, Glomerular Filtration Rate 17.3L, Blood Urea Nitrogen 52H, Creatinine 2.83H, Sodium Level 137, Potassium Level 4.5, Chloride Level 108H, Carbon Dioxide Level 22, Calcium Level 8.0L CBC/BMP Laboratory Tests 10/02/18 04:48 Red Blood Count 2.97 L, Mean Corpuscular Volume 89.9, Mean Corpuscular Hemoglobin 29.3, Mean Corpuscular Hemoglobin Concent 32.6, Red Cell Distribution Width 16.8 H, Calcium Level 8.0 L Microbiology Microbiology 3/9/19 Blood Culture, Received Pending 10/01/18 Stool Occult Blood (JULIETTE) - Final, Complete 10/01/18 MRSA Screen, Resulted Pending 10/01/18 Respiratory Virus Panel (PCR) (JULIETTE) - Final, Resulted Influenza A H1-2009 Respiratory Syncytial Virus DEANDRA HUDSON MD Oct 02, 2018 08:57
[2018-10-02] MEDS: PANTOPRAZOLE 40MG TAB (PROTONIX) PO SCH (09:23)
[2018-10-02] MEDS: GABAPENTIN 300 MG CAP PO SCH ×3 (09:24→21:10)
[2018-10-02] MEDS: amLODIPine 10 MG TAB PO SCH (09:24)
[2018-10-02] MEDS: CEFDINIR 300 MG CAP (OMNICEF) PO SCH (09:24)
[2018-10-02] MEDS: FERROUS SULFATE 325MG TAB PO SCH ×3 (09:24→21:11)
[2018-10-02] MEDS: **hydrALAZINE** 10 MG TAB PO SCH ×3 (09:24→21:12)
[2018-10-02] MEDS: ARIPiprazole 2 MG TAB PO SCH (09:25)
[2018-10-02] MEDS: ASPIRIN 81 MG ENTERIC TAB PO SCH (09:25)
[2018-10-02] MEDS: ASCORBIC ACID 500 MG TAB PO SCH (09:25)
[2018-10-02] MEDS: buPROPion **XL** TABLET 150MG (WELLBUTRIN XL) PO SCH (09:25)
[2018-10-02] MEDS: ISOSORBIDE DIN. (ISORDIL) 20 MG TAB PO SCH ×3 (09:25→21:12)
[2018-10-02] MEDS: OSELTAMIVIR PHOSPHATE 30MG CAPSULE PO SCH ×2 (09:25→21:11)
[2018-10-02] MEDS: TICAGRELOR 90 MG TABLET (BRILINTA) PO SCH ×2 (09:25→21:12)
[2018-10-02] MEDS: DOXYCYCLINE HYCLATE 100 MG TAB PO SCH ×2 (10:31→21:11)
[2018-10-02] MEDS: MAGNESIUM OXIDE 400 MG TAB (MAG-OX) PO SCH (12:05)
[2018-10-02] MEDS: FOLIC ACID 1 MG TAB PO SCH (12:05)
[2018-10-03] VITALS (8 sets, daily range): BP systolic 140–178; BP diastolic 60–80
[2018-10-03 04:57] LABS: HEMATOCRIT 26.4 % (36.0-47.0); HEMOGLOBIN 8.7 g/dl (12.0-15.5); MEAN CORPUSCULAR HEMOGLOBIN 30.2 pg (27.0-33.0); MEAN CORPUSCULAR VOLUME 91.7 fl (80.0-96.0); PLATELET COUNT, AUTOMATED 247 10^3/uL (150-450); RED BLOOD COUNT 2.88 10^6/uL (4.00-5.40); WHITE BLOOD COUNT 5.6 10^3/uL (4.0-10.0)
[2018-10-03 05:20] LABS: CALCIUM LEVEL 7.9 MG/DL (8.8-10.2); CREATININE FOR GFR 2.65 MG/DL (0.55-1.30); GLOMERULAR FILTRATION RATE 18.6 (>39); POTASSIUM SERUM 4.7 MEQ/L (3.5-5.1)
[2018-10-03] MEDS: LEVOTHYROXINE 37.5MCG PER 1/2TAB (0.0375MG) PO SCH (06:30)
[2018-10-03] MEDS: HumaLOG INSULIN (NovoLOG) PER UNIT SC SCH ×3 (07:30→17:30)
[2018-10-03] MEDS: buPROPion **XL** TABLET 150MG (WELLBUTRIN XL) PO SCH (08:00)
[2018-10-03] MEDS: **hydrALAZINE** 10 MG TAB PO SCH (08:00)
[2018-10-03] MEDS: OSELTAMIVIR PHOSPHATE 30MG CAPSULE PO SCH (08:00)
[2018-10-03] MEDS: CEFDINIR 300 MG CAP (OMNICEF) PO SCH (08:01)
[2018-10-03] MEDS: amLODIPine 10 MG TAB PO SCH (08:01)
[2018-10-03] MEDS: GABAPENTIN 300 MG CAP PO SCH ×2 (08:01→15:22)
[2018-10-03] MEDS: ISOSORBIDE DIN. (ISORDIL) 20 MG TAB PO SCH (08:01)
[2018-10-03] MEDS: NORCO, ANEXSIA 5/325MG TABLET (HYDROcodone/ACETAMINOPHEN) PO PRN ×2 (08:02→15:21)
[2018-10-03] MEDS: PANTOPRAZOLE 40MG TAB (PROTONIX) PO SCH (08:02)
[2018-10-03] MEDS: ARIPiprazole 2 MG TAB PO SCH (08:02)
[2018-10-03] MEDS: TICAGRELOR 90 MG TABLET (BRILINTA) PO SCH (08:03)
[2018-10-03] MEDS: ASCORBIC ACID 500 MG TAB PO SCH (08:03)
[2018-10-03] MEDS: DOXYCYCLINE HYCLATE 100 MG TAB PO SCH (08:03)
[2018-10-03] MEDS: FERROUS SULFATE 325MG TAB PO SCH ×2 (08:03→15:22)
[2018-10-03] MEDS ORDERED: CEFD300CAP PO (08:24)
[2018-10-03] MEDS ORDERED: DOXY100T PO (08:24)
[2018-10-03] MEDS ORDERED: AMLO10TA5 PO (08:24)
[2018-10-03] MEDS ORDERED: OSEL30CA PO (08:24)
[2018-10-03] MEDS ORDERED: HYDR50TA PO (08:24)
[2018-10-03] MEDS ORDERED: **hydrALAZINE** 10 MG TAB PO ONE (08:30)
[2018-10-03] MEDS ORDERED: IRON SUCROSE 500 MG in NS 250 ML IV ONE (09:00)
[2018-10-03] MEDS ORDERED: IRON SUCROSE 100MG 5ML VIAL (J1756 PER 1MG) IV ONE (10:30)
--- NOTE | 2018-10-03 11:36 | CR ---
DATE OF CONSULTATION: 10/01/[address] DEANDRA HUDSON DATE OF CONSULTATION: 10/01/2018 REASON FOR CONSULTATION: Acute renal failure superimposed on chronic kidney disease. HISTORY OF PRESENT ILLNESS: Mrs. Sosa is a 77-year-old female who was admitted to [facility] on September 29 via transfer from [facility] due to acute renal failure and congestive heart failure. A nephrology consultation was requested yesterday and the rope walker on-call did attempt to see her, however, the patient was not in the room. She is seen this morning. She has known history of multiple chronic medical problems including type 2 diabetes, systolic congestive heart failure with ejection fraction just below 40%, hypertension, peripheral neuropathy, coronary artery disease with prior angioplasty and stents, history of chronic kidney disease, peripheral vascular disease, and hypothyroidism. She is admitted with congestive heart failure at this time and is being diuresed. Her kidney function was worsened due to which a nephrology consultation was requested and the patient is seen this morning. PAST MEDICAL HISTORY (Significant for): 1. Longstanding type 2 diabetes. 2. Hypertension. 3. Peripheral neuropathy. 4. Systolic congestive heart failure. 5. Coronary artery disease with prior angioplasty and stents. 6. History of chronic kidney disease. 7. Hypothyroidism. 8. History of depression. PAST SURGICAL HISTORY (Significant for): 1. Coronary angioplasty with stents. 2. Coronary artery bypass surgery. 3. She has a right lower extremity amputation. MEDICATIONS (Her home medications included): - amlodipine 5 mg daily - Abilify 2 mg daily - aspirin 81 mg daily - bupropion XL 150 mg daily - carvedilol 25 mg twice a day (b.i.d.) - ferrous sulfate 325 mg b.i.d. - folic acid 1 mg daily - furosemide 20 mg daily - gabapentin 300 mg three times a day (t.i.d.) - isosorbide ER 30 mg at bedtime - Humalog insulin per sliding scale - levothyroxine 25 mcg daily - magnesium oxide 400 mg daily - pantoprazole 40 mg daily - Brilinta 90 mg b.i.d. ALLERGIES: - CIPROFLOXACIN - ATORVASTATIN - METOPROLOL - SULFA PERSONAL AND SOCIAL HISTORY: The patient denies any smoking, alcohol or drug use. FAMILY HISTORY: Significant for peripheral arterial disease, diabetes and congestive heart failure. There is no family history for end-stage renal disease. REVIEW OF SYSTEMS: The patient was short of breath on admission; however, she reports improvement since then. She denies any fever or chills. Ears, nose and throat are unremarkable. Cardiovascular system is significant for known history of systolic congestive heart failure and coronary artery disease. She denies any chest pain, orthopnea or paroxysmal nocturnal dyspnea (PND) at present. She does have some leg edema. Respiratory system is significant for multifocal pneumonia which is being treated with antibiotics. GI system is negative for nausea, vomiting or diarrhea. system is negative for dysuria or hematuria. Musculoskeletal system is significant for right lower extremity amputation just above the knee. Neurological system is significant for peripheral neuropathy. Hematological system is significant for anemia. Psychosocial system is significant for depression and anxiety. PHYSICAL EXAMINATION: Temperature 97.2 degrees Fahrenheit, heart rate 60 per minute and respiratory rate 18 per minute. Blood pressure 170/72 mmHg and oxygen saturation 99%. Head is atraumatic. Neck is supple and jugular venous distention (JVD is moderately elevated. There is no oral thrush or ulcers. Pupils are equal and reactive to light and sclerae is anicteric. Heart sounds are regular and lungs with slightly diminished breath sounds with basilar rales bilaterally. Abdomen: Soft and nontender. Bowel sounds are normal. Extremities have no cyanosis or clubbing. She has a right [id number] amputation and stump seems to be well-healed. There is 1+ edema on the left lower extremity. Neurologically, she is awake, alert and oriented times three. LABORATORY DATA: On admission, her sodium was 137, potassium 4.2, CO2 20, BUN 46 and creatinine 2.91. Glucose of 109 and calcium 8.0. Yesterday, her sodium was 135 and potassium 4.3. BUN was 46 and creatinine 3.02. Today, sodium is 134, potassium 4.8, CO2 20, BUN 48 and creatinine 2.82. Glucose 85 and calcium 7.9. WBC count is 4.7, hemoglobin 9.2 and hematocrit 28.0. Renal ultrasound done yesterday showed normal sized kidneys with right kidney 9.5 and left kidney 10.8 cm. There was no evidence for obstruction. Chest x-ray did show some subsegmental infiltrates. There is no evidence of a pleural effusion. CT scan was consistent with some multifocal infiltrates. PROBLEMS: 1. Acute renal failure superimposed on chronic kidney disease. Slight improvement in kidney function noted over the last 24 hours. She does not have any uremic symptoms and at this point I would recommend to continue monitoring renal profile at least once a day. Renal ultrasound has already been done and obstruction has been ruled out. 2. Congestive heart failure. She has known history of systolic congestive heart failure and now she has acute on chronic decompensated CHF. I would recommend to continue diuresing her and get a negative fluid balance. 3. Pneumonia. The patient is being treated with antibiotics and is currently afebrile. 4. Anemia. Her anemia seems to be stable and no urgent intervention. She does have iron deficiency and we will treat her with oral and intravenous iron. At present, she will continue with oral iron supplement and once she is more stable then we can give her a dose of intravenous iron. 4. Hypertension. I would suggest to continue with current antihypertensive meds and avoid KIMBERLYN inhibitor or angiotensin receptor blockers at this point due to acute renal failure. 5. Pneumonia. The patient is currently being treated with doxycycline and ceftriaxone. Thank you for involving me in the care of Mrs. Sosa. We will follow her along with you.
[2018-10-03] MEDS: FOLIC ACID 1 MG TAB PO SCH (11:54)
[2018-10-03] MEDS: MAGNESIUM OXIDE 400 MG TAB (MAG-OX) PO SCH (11:54)
[2018-10-03] MEDS ORDERED: IRON SUCROSE 25 MG in NS 50 ML IV ONE (12:00)
[2018-10-03] MEDS ORDERED: IRON SUCROSE 475 MG in NS 250 ML IV ONE (13:00)
--- NOTE | 2018-10-03 15:30 | IPN ---
DATE: 10/02/2018 Mrs. Sosa is seen this morning on her bedside. She is feeling well and denies any complaints. She reports that her dyspnea has improved and she denies any nausea, vomiting, chest pain, fever or chills. She was admitted with shortness of breath and felt to have congestive heart failure and acute kidney injury. PHYSICAL EXAMINATION: Temperature is 97.8 degrees Fahrenheit, heart rate 64 per minute and respiratory rate 18 per minute. Blood pressure 140/60 mmHg and oxygen saturation 99% on room air. Intake and output records from yesterday showed total intake 1640 and output 2000 mL. Head is atraumatic. Neck is supple and jugular venous distention (JVD) is mildly elevated. She has no oral thrush or ulcers. Lungs have few basilar rales and heart sounds are regular. Abdomen is soft and nontender and extremities have no cyanosis or clubbing. She has a right [id number] amputation. Neurologically, she is awake, alert and oriented times three. Today's labs show WBC count 5.7, hemoglobin 8.7 and hematocrit 26.7. Sodium 137, potassium 4.5, CO2 22, BUN 52 and creatinine 2.83. Calcium level 8.0. PROBLEMS: 1. Acute kidney injury superimposed on chronic kidney disease. The patient probably has mostly chronic kidney disease as her kidney function has not changed much since admission. This is probably close to her baseline function. She does not have any uremic symptoms and will definitely need to be followed up as an outpatient. She reports that she has never been seen by nephrology previously. 2. Congestive heart failure. Her volume status is only slightly decompensated now and she was given one dose of Lasix yesterday. I am going to watch her for next 24 hours as she is asymptomatic with oxygen saturation of 99% on room air. 3. Anemia. She does have iron deficiency anemia and significant chronic kidney disease. We will give her a dose of intravenous Venofer 500 mg prior to discharge. She will need follow up as an outpatient. 4. Hypertension. Blood pressure is reasonably well-controlled and no changes are being made today.
[2018-10-03] MEDS ORDERED: ISOSORBIDE DIN. (ISORDIL) 20 MG TAB PO SCH (16:00)
--- NOTE | 2018-10-03 18:48 | DS.PDOC ---
Discharge Summary General Date of Admission Sep 28, 2018 at 18:35 Date of Discharge Sep 29, 2018 Attending Physician: DEANDRA HUDSON MD Specialist/Consultants Involve: TAMY MICHELLE DO Discharge Summary ADMITTING DIAGNOSES: 1. CHF DISCHARGE DIAGNOSES: 1. Right perihilar Pneumonia 2. CHF 3. Acute on chronic renal disease COMPLICATIONS/CHIEF COMPLAINT: CHF. HISTORY OF PRESENT ILLNESS: Patient is a 77 year old female who was transferred to [facility] from [facility] for increased level of care due to worsening kidney function, decompensated systolic congestive heart failure, and right lobe pneumonia. She was recently hospitalized in [place] with hypothyroid, bradycardia, hypothermia, chronic systolic heart failure, altered mental status, and acute on chronic renal failure. She was discharged on 09/09/18 and sent to [facility] for rehab She was discharged home on 09/23/2018. She subsequently presented to the [facility] emergency department after developing nasal congestion, cough, and shortness of breath. The patient had indicated that there was confusion regarding her medications and she had not received lasix for several days as well as several of her blood pressure medications. In the [facility] emergency department the patient was found to have an elevated BNP with abnormal lung sounds and felt to be in CHF exacerbation. Additionally, chest x-ray revealed a right perihilar pneumonia. The patient had been afebrile and without a white count. She was subsequently admitted. At [facility] she received IV Azithromycin and IV Rocephin for suspected right perihilar pneumonia. The patient was treated for possible CHF with aggressive diuresis with IV lasix. Patient does have acute on chronic renal failure and was found to have an increasing Cr from 2.5 to 2.84. Additionally, the patient was anemic likely secondary to her renal failure and received 2 units of PRBC. The patient received an additional 80 mg IV lasix and was transferred to [facility]. The patient currently follows with Dr. Yoo of cardiology. He was made aware of the case. HOSPITAL COURSE: Upon arrival at [facility] the patient stated that she continues to feel short of breath. She denies any fevers or chills. She does complain of pain in her left leg and right thigh. She states that she frequently gets cramps there. She denies any shortness of breath. She does continue to have a dry cough and denies any sputum production or congestion at this time. Patient did receive a CT chest w/o contrast upon arrival to discern if she has a true pneumonia vs a pleural effusion. Her Chest Ct revealed multiple semiopaque and ground glass opacities in the right upper, right middle, and lower lobes suggestive of multifocal pneumonia. Patient was subsequently started on IV doxycycline and Rocephin. She never did have a leukocytosis. Blood cultures negative. She was transitioned to Cefdinir 300 mg and doxycycline 100 mg. Influenza swap was positive and patient was also treated with Tamiflu. She did have a two-second pause while on telemetry. Her coreg was intermittently held and no further pauses were noted. Renal US performed to assess for HEATH. No stenosis was identified. Patient remained hypertensive for much of her hospital stay, but stabilized prior to discharge with PO medications. Patient was noted to have worsening acute on chronic renal failure. Nephrology was consulted and nephrotoxic agents were avoided. Nephrology believed she had acute kidney injury superimposed on chronic kidney disease. No uremic symptoms were identified. She was given a one-time dose of Venofer for her iron- deficiency anemia. Stool occult negative. Recommend nephrology follow-up as outpatient. DISCHARGE MEDICATIONS: Please see below. ALLERGIES: Please see below. PHYSICAL EXAMINATION ON DISCHARGE: VITAL SIGNS: Please see below. CONSTITUTIONAL: Denies fevers, chills, night sweats, unintentional weight loss or weight gain HEENT: Complains of non-productive cough and resultant sore throat. Denies headache, rhinorrhea or nasal congestion. CARDIOVASCULAR: Denies chest pain. Denies palpitations or tachycardia RESPIRATORY: Continued improved shortness of breath at rest. Denies sputum pro duction. Denies hemoptysis, no longer requiring supplemental O2 GASTROINTESTINAL: Denies abdominal pain, diarrhea, constipation, nausea, or vomiting, has yet to have BM - this is normal as she usually stools 1-2x weekly. GENITOURINARY: Denies increased frequency or urgency, Booth in place, to be D/Cd SKIN: Denies rashes or lesions MUSCULOSKELETAL: Complains of pain in her left thigh last evening, improved at time of examination. BKA of right leg. Left dorsalis pedis pulse present via doppler. Decreased sensation of lower limb consistent with chronic PVD changes. Slight 1-2mm pitting edema present in left lower extremity. NEUROLOGICAL: Denies changes in speech, vision or hearing. She complains of continued numbness in her distal L leg, but this is not new PSYCHIATRIC: Admits to history of depression and anxiety ENDOCRINE: Denies heat intolerance or cold intolerance HEMATOLOGIC/LYMPHATIC: Denies easy bruising or bleeding LABORATORY DATA: Please see below. IMAGING: Chest X-ray from [facility] demonstrated cardiomegaly, small bilateral pleural effusions, and a right sided perihilar infiltrate Chest CT: Multiple geographic okay, semiopaque and ground glass opacities in the right upper, right middle, and lower lobes may indicate multifocal pneumonitis. Status post sternotomy with diastases of the sternum. Renal US: No evidence of obstructive uropathy. Urinary bladder is empty with Booth catheter. No abnormality Echo: Echo: Normal LV size with mild LVH, septal and apical wall motion abnormality and overall EF estimated 45-50%. Grade 2 diastolic dysfunction. Aortic sclerosis but no stenosis or insufficiency.Mild mitral and tricuspid insu fficiency. Elevated central venous pressure at least moderate pulmonary hypertension ACTIVITY: As tolerated DIET: As tolerated DISPOSITION: 06 Home Health Service. DISCHARGE INSTRUCTIONS: 1. Appointment with PCP to follow-up chronic medical conditions 2. Nephrology appointment for management of CKD DISCHARGE CONDITION: Stable. TIME SPENT ON DISCHARGE: Greater than 25 minutes. Vital Signs/I&Os Vital Signs Date Time Temp Pulse Resp B/P (MAP) Pulse Ox O2 Delivery O2 Flow Rate FiO2 10/03/18 16:00 98.1 77 22 154/64 (94) 99 09/29/18 20:00 1.0 I&O- Last 24 Hours up to 6 AM 10/03/18 06:00 Intake Total 780 ml Output Total 1600 ml Balance -820 ml Laboratory Data Labs 24H Laboratory Tests 2 10/02/18 19:52: Bedside Glucose (Misc Panel) 82L 10/02/18 20:58: Bedside Glucose (Misc Panel) 95 10/03/18 04:31: Nucleated Red Blood Cells % (auto) 0.0, Anion Gap 8, Glomerular Filtration Rate 18.6L, Blood Urea Nitrogen 50H, Creatinine 2.65H, Sodium Level 139, Potassium Level 4.7, Chloride Level 110H, Carbon Dioxide Level 21, Calcium Level 7.9L 10/03/18 11:46: Bedside Glucose (Misc Panel) 109 10/03/18 17:29: Bedside Glucose (Misc Panel) 107 CBC/BMP Laboratory Tests 10/03/18 04:31 Red Blood Count 2.88 L, Mean Corpuscular Volume 91.7, Mean Corpuscular Hemoglobin 30.2, Mean Corpuscular Hemoglobin Concent 33.0, Red Cell Distribution Width 16.9 H, Calcium Level 7.9 L FSBS Laboratory Tests Test 10/02/18 19:52 10/02/18 20:58 10/03/18 11:46 10/03/18 17:29 Range/Units Bedside Glucose (Misc Panel) 82 95 109 107 83-110 MG/DL Microbiology Microbiology 10/01/18 Blood Culture - Preliminary, Resulted No Growth after 48 hours. All Specime... 10/01/18 Stool Occult Blood (JULIETTE) - Final, Complete 10/01/18 MRSA Screen - Final, Complete 10/01/18 Respiratory Virus Panel (PCR) (JULIETTE) - Final, Complete Influenza A H1-2009 Respiratory Syncytial Virus Discharge Medications Scheduled Amlodipine Besylate (Amlodipine Besylate) 10 Mg Tab, 10 MG PO DAILY Aripiprazole (Abilify) 2 Mg Tab, 2 MG PO DAILY, (Reported) Aspirin (Aspirin EC) 81 Mg Tabec, 81 MG PO Q2D, (Reported) Bupropion Hcl (Bupropion HCl Xl) 150 Mg Tab, 150 MG PO DAILY, (Reported) Cefdinir (Cefdinir) 300 Mg Cap, 300 MG PO BID Doxycycline Hyclate (Doxycycline Hyclate) 100 Mg Tab, 100 MG PO BID Ferrous Sulfate (Ferrous Sulfate) 325 Mg Tab, 325 MG PO TID, (Reported) MORNING, LUNCH AND BEDTIME Folic Acid (Folic Acid) 1 Mg Tab, 1 MG PO DAILY, (Reported) TAKES AT LUNCHTIME Furosemide (Furosemide) 20 Mg Tab, 20 MG PO DAILY, (Reported) Hydralazine HCl (Hydralazine HCl) 50 Mg Tab, 50 MG PO BID Insulin Human Lispro (Humalog) 100 Unit/Ml Inj, 1 DOSE SC ACHS, (Reported) PER SLIDING SCALE Isosorbide Mononitrate (Isosorbide Mononitrate ER) 30 Mg Tab, 90 MG PO QHS, (Reported) Levothyroxine Sodium (Synthroid) 25 Mcg Tab, 25 MCG PO DAILY, (Reported) Magnesium Oxide (Magnesium Oxide) 400 Mg Tab, 400 MG PO DAILY, (Reported) TAKES AT LUNCH Oseltamivir Phosphate (Oseltamivir Phosphate) 30 Mg Cap, 30 MG PO BID Pantoprazole Sodium (Pantoprazole Sodium) 40 Mg Tab, 40 MG PO DAILY, (Reported) Ticagrelor Base (Brilinta) 90 Mg Tab, 90 MG PO BID, (Reported) Scheduled PRN Acetaminophen (Tylenol) 325 Mg Tab, 650 MG PO Q4H PRN for PAIN, (Reported) Hydroxyzine HCl (Hydroxyzine HCl) 10 Mg Tab, 10 MG PO TID PRN for ANXIETY, (Reported) Lorazepam (Lorazepam) 1 Mg Tab, 1 MG PO BID PRN for ANXIETY, (Reported) Ondansetron HCl (Ondansetron HCl) 8 Mg Tab, 8 MG PO TID PRN for NAUSEA, (Reported) Oxycodone HCl (Oxycodone HCl) 5 Mg Tab, 5 MG PO QID PRN for PAIN, (Reported) Allergies Coded Allergies: Ciprofloxacin (Verified Allergy, Mild, Itchy, 09/28/18) Atorvastatin (Verified Allergy, Unknown, 09/28/18) Metoprolol (Verified Allergy, Unknown, 09/28/18) Sulfa Antibiotics (Verified Allergy, Unknown, 09/28/18) GME ATTESTATION GME ATTESTATION My faculty preceptor for this patient encounter was physically present during the encounter and was fully available. All aspects of the patient interview, examination, medical decision making process, and medical care plan development were reviewed and approved by the faculty preceptor. The faculty preceptor is aware and concurs with the plan as stated in the body of this note and will attest to such by his/her cosignature. MANOJ VALENZUELA DO Oct 03, 2018 18:48
[2018-10-03] MEDS ORDERED: **hydrALAZINE** 50 MG TAB PO SCH (21:00)
--- NOTE | 2018-10-04 08:19 | IPN ---
DATE OF SERVICE: 10/03/2018 Ms. Sosa is seen this morning on her bedside. She is feeling well and denies any complaints. Her dyspnea has improved and she denies any fever or chills. She has no nausea or vomiting. PHYSICAL EXAMINATION: Temperature 97.7 degrees Fahrenheit, heart rate 72 per minute and respiratory rate 18 per minute. Blood pressure 152/80 mmHg and oxygen saturation 100%. Head is atraumatic. Neck is supple and without JVD or thyroid enlargement. Heart: Sounds are regular and lungs sound clear to auscultation. Abdomen: Soft and nontender and bowel sounds are normal. Extremities have no cyanosis or clubbing. She has a remote right [id number] amputation. Neurologically she is awake, alert and oriented times three. Today's labs show WBC count 5.6, hemoglobin 8.7 and hematocrit 26.4. Platelets 247. BUN 50, creatinine 2.65. Sodium 139 and potassium 4.7. PROBLEMS: 1. Acute on chronic kidney disease. She has slight improvement in her kidney function. I feel that she has significant underlying chronic kidney disease and will need close followup as an outpatient. The patient is being advised to return to office next week. 2. Congestive heart failure. Her volume status is reasonably well-compensated at present. We will follow up as an outpatient and adjust her medications as needed. She is being advised to bring all her home medications with her. 3. Iron deficiency anemia. The patient is going to be given one dose of Venofer 500 mg prior to discharge. Nursing staff wanted to give her a test dose first before giving her a total of 500 mg. I ordered a test dose of 25 mg Venofer before giving her full dose. If she has no problems after IV infusion from renal standpoint, then she can be discharged to home and follow up in my office in 1 week.
[2018-10-06 00:07] LABS: BODY FLUID CULTURE Not Indicated (.); LEGIONELLA ANTIGEN URINE Negative (Negative); ORGANISM ID Not indicated. (.); SPECIMEN SOURCE Urine (.); URINE STREP PNEUMONIAE ANTIGEN Negative (Negative)
== END 2018-10-03 18:11 | disposition home health service (06) | DRG 682 ==
LOC: M PCU 18:35
PROVIDERS: ADMIT Internal Medicine; ATTEND General Practice
DX: N17.9 Acute kidney failure, unspecified (principal); J18.9 Pneumonia, unspecified organism; I50.23 Acute on chronic systolic (congestive) heart failure; I13.0 Hypertensive heart and chronic kidney disease with heart failure and stage 1 through stage 4 chronic kidney disease, or unspecified chronic kidney disease; N18.4 Chronic kidney disease, stage 4 (severe); E03.9 Hypothyroidism, unspecified; Z79.899 Other long term (current) drug therapy; Z79.82 Long term (current) use of aspirin; Z88.2 Allergy status to sulfonamides; Z88.8 Allergy status to other drugs, medicaments and biological substances; E11.51 Type 2 diabetes mellitus with diabetic peripheral angiopathy without gangrene; I25.10 Atherosclerotic heart disease of native coronary artery without angina pectoris; F32.9 Major depressive disorder, single episode, unspecified; Z95.2 Presence of prosthetic heart valve; Z89.511 Acquired absence of right leg below knee; D63.1 Anemia in chronic kidney disease; F41.9 Anxiety disorder, unspecified

== ENCOUNTER 2018-11-01 10:50 | Inpatient (IN) | payer MEDICARE, MEDICAID ==
[~2018-11-01] VITALS: Ht 162.6 cm; Wt 68.4 kg
[~2018-11-01 10:50] MED LIST: ABIL1TAB13 PO; AMLO10TA5 PO; AMLO5TAB6 PO; ASPI81TAEC PO; BRIL90TA PO; BUPR150T3 PO; CARV25TA PO; CEFD300CAP PO; CYCL5TAB PO; DOXY100T PO; FERR1TAB8 PO; FOLI1TAB11 PO; FURO20TA2 PO; GABA-843 PO; HUMA100I3 SC; HYDR-643 PO; HYDR50TA PO; ISOS30TA4 PO; LORA1TAB12 PO; MAGN400T2 PO; ONDA8TAB7 PO; OSEL30CA PO; OXYC-517 PO; PANT40TA3 PO; SYNT25TA PO; TYLE325T5 PO
[2018-11-01 20:30] VITALS: BP 174/82
[2018-11-01] MEDS: ISOSORBIDE MON. (IMDUR) 30 MG XR TAB PO SCH (21:00)
[2018-11-01] MEDS ORDERED: TICAGRELOR 90 MG TABLET (BRILINTA) PO SCH (21:00)
[2018-11-01] MEDS: HumaLOG INSULIN (NovoLOG) PER UNIT SC SCH (21:00)
[2018-11-01 21:41] LABS: HEMATOCRIT 31.9 % (36.0-47.0); HEMOGLOBIN 10.4 g/dl (12.0-15.5); MEAN CORPUSCULAR HEMOGLOBIN 30.6 pg (27.0-33.0); MEAN CORPUSCULAR HGB CONC 32.6 g/dl (32.0-36.5); MEAN CORPUSCULAR VOLUME 93.8 fl (80.0-96.0); PLATELET COUNT, AUTOMATED 283 10^3/uL (150-450); WHITE BLOOD COUNT 6.8 10^3/uL (4.0-10.0)
[2018-11-01] MEDS ORDERED: GLUCAGON FOR INJ 1 MG VIAL (J1610) SC PRN (22:00)
[2018-11-01] MEDS ORDERED: DEXTROSE 50% 50 ML SYRINGE IV PRN (22:00)
[2018-11-01] MEDS ORDERED: GLUCOSE 4 GM CHEW TABLET PO PRN (22:00)
[2018-11-01 22:06] LABS: ALBUMIN 3.5 GM/DL (3.2-5.2); BILIRUBIN,TOTAL 0.4 MG/DL (0.2-1.0); CALCIUM LEVEL 8.9 MG/DL (8.8-10.2); CREATININE FOR GFR 2.55 MG/DL (0.55-1.30); GLOMERULAR FILTRATION RATE 19.4 (>39); POTASSIUM SERUM 3.9 MEQ/L (3.5-5.1); TOTAL PROTEIN 7.2 GM/DL (6.4-8.2)
[2018-11-01 23:00] VITALS: O2SAT 99
--- NOTE | 2018-11-01 23:00 | HPEPDOC ---
[facility] Medical History & Physical Date of Admission Nov 01, 2018 History and Physical CHIEF COMPLAINT: SOB, weakness HISTORY OF PRESENT ILLNESS: Tabby Sosa is a 78-year-old female with past medical history of congestive heart failure (EF 39% , 07/2018) and type 2 diabetes with chronic kidney disease who presents as a transfer from outside hospital for pneumonia necessitating pulmonary consultation. The patient was recently admitted to [facility] on 09/28/2018 with shortness of breath, found to have community-acquired pneumonia, decompensated systolic congestive heart failure and acute on chronic renal failure. She was treated with IV doxycycline and Rocephin and was appropriately diuresed. She was transitioned to oral Cefdinir and oral doxycycline and was discharged home and told to follow-up with her primary care doctor. She was also seen by nephrology for her chronic renal failure and iron deficiency anemia which was stable on discharge. Today she reports she went to the ED at the outside hospital for several days of worsened shortness of breath and weakness, decreased appetite and subjective fevers. Reportedly she did not take her antibiotics and did not finish the courses when she was discharged. At the outside hospital she was also found to have small pleural effusions bilaterally. She does report some shortness of breath and difficulty laying flat, but this is not worse than normal. She is not on any oxygen at home PAST MEDICAL HISTORY: 1. Systolic Congestive Heart Failure (EF 39% 08/01/2018) 2. DMII 3. Hypertension 4. Peripheral Neuropathy 5. CAD with stent placement 6. CKD Stage IV 7. Hypothyroidism 8. Peripheral Artery Disease 9. Depression PAST SURGICAL HISTORY: 1. CAD with Stents placed. Last stent placed 1 year ago 2. BKA of right lower extremity SOCIAL HISTORY: Denies smoking, alcohol, or illicit drug use. Lives at home with her FAMILY HISTORY: Sister with PAD, diabetes, and CHF ALLERGIES: Please see below. REVIEW OF SYSTEMS: A 10 point review of systems was performed and is negative other than what is mentioned in the [facility] HOME MEDICATIONS: Please see below. PHYSICAL EXAMINATION: VITAL SIGNS: Temperature 98.1, pulse 90, respiratory rate 18, blood pressure 174/82, pulse oximetry 95 % on 3LNC GENERAL APPEARANCE: Calm, cooperative, not in any acute distress HEENT: Moist mucous membranes, no thyromegaly CARDIOVASCULAR: Regular rate and rhythm, no murmurs, rubs or gallops LUNGS: Fine crackles at the bases up to the middle lobes bilaterally ABDOMEN: Soft, nontender, no organomegaly, no masses MUSCULOSKELETAL: Resolved extremities well EXTREMITIES: Patient has a right BKA. No clubbing, cyanosis or edema NEUROLOGICAL: No focal deficits appreciated PSYCHIATRIC: Normal mood, normal affect LABORATORY DATA: See below. IMAGING: CXR read pending MICROBIOLOGY: Please see below. ASSESSMENT: This is a 78-year-old female with a history of congestive heart failure, CK D, diabetes who presents as transfer from outside hospital for pulmonary evaluation secondary to trace pleural effusions found on chest x-ray and possible pneumonia. She will be admitted to the PCU for continuous monitoring. PLAN: Systolic Heart Failure exacerbation History of pleural effusions and congestive heart failure: -Chest x-ray on admission demonstrates trace pleural effusions bilaterally. They do not appear big enough to be drained at this time. -Patient will be placed on fluid restriction of 1800 mL per day with strict I and O -Patient will probably need a Booth in place -Continue to titrate oxygen for oxygen saturation greater than 90% -BNP on admission found to be 61,060 Acute on chronic renal failure: -Suggest nephrology referral in the morning. The patient does appear to be at baseline creatinine of 2.5 with BUN of 39 -All other electrolytes are within normal limits History of anemia of chronic disease -Hemoglobin on admission found to be 10.4. No need for transfusion at this time Type 2 diabetes: -Patient will be placed on SSI with hypoglycemic protocol -Consistent carbohydrate diet and no salt Hypothyroidism: -Continue home levothyroxine History of CAD with multiple stent placements -Continue home aspirin and Brilinta DVT prophylaxis: Teds and sequentials. Vital Signs Vital Signs Date Time Temp Pulse Resp B/P (MAP) Pulse Ox O2 Delivery O2 Flow Rate FiO2 11/01/18 20:30 98.1 90 18 174/82 (112) 95 3.0 Laboratory Data Labs 24H Laboratory Tests 2 11/01/18 21:20: Nucleated Red Blood Cells % (auto) 0.0, Anion Gap 7L, Glomerular Filtration Rate 19.4L, Blood Urea Nitrogen 39H, Creatinine 2.55H, Sodium Level 136, Potassium Level 3.9, Chloride Level 106, Carbon Dioxide Level 23, Calcium Level 8.9, Aspartate Amino Transf (AST/SGOT) 13, Alanine Aminotransferase (ALT/SGPT) 12, Alkaline Phosphatase 126H, Total Bilirubin 0.4, Total Protein 7.2, Albumin 3.5, [id number]-Type Natriuretic Peptide [id number], Albumin/Globulin Ratio 0.95L 11/01/18 21:51: Bedside Glucose (Misc Panel) 69L CBC/BMP Laboratory Tests 11/01/18 21:20 Red Blood Count 3.40 L, Mean Corpuscular Volume 93.8, Mean Corpuscular Hemoglobin 30.6, Mean Corpuscular Hemoglobin Concent 32.6, Red Cell Distribution Width 16.7 H, Calcium Level 8.9, Aspartate Amino Transf (AST/SGOT) 13, Alanine Aminotransferase (ALT/SGPT) 12, Alkaline Phosphatase 126 H, Total Bilirubin 0.4, Total Protein 7.2, Albumin 3.5 Home Medications Scheduled Amlodipine Besylate (Amlodipine Besylate) 10 Mg Tablet, 10 MG PO DAILY Aripiprazole (Abilify) 2 Mg Tab, 2 MG PO DAILY Aspirin (Aspirin EC) 81 Mg Tabec, 81 MG PO DAILY Bupropion Hcl (Bupropion Xl) 150 Mg Tab, 150 MG PO DAILY Carvedilol (Carvedilol) 25 Mg Tablet, 25 MG PO BID Ferrous Sulfate (Ferrous Sulfate) 325 Mg Tab, 325 MG PO TID MORNING, LUNCH AND BEDTIME Folic Acid (Folic Acid) 1 Mg Tab, 1 MG PO DAILY TAKES AT LUNCHTIME Furosemide (Furosemide) 20 Mg Tab, 20 MG PO DAILY Hydralazine HCl (Hydralazine HCl) 50 Mg Tablet, 50 MG PO BID Isosorbide Mononitrate (Isosorbide Mononitrate ER) 30 Mg Tab, 90 MG PO QHS Levothyroxine Sodium (Synthroid) 25 Mcg Tab, 25 MCG PO DAILY Lisinopril (Lisinopril) 10 Mg Tablet, 10 MG PO DAILY Magnesium Oxide (Magnesium Oxide) 400 Mg Tab, 400 MG PO DAILY TAKES AT LUNCH Pantoprazole Sodium (Pantoprazole Sodium) 40 Mg Tab, 40 MG PO DAILY Ticagrelor Base (Brilinta) 90 Mg Tab, 90 MG PO BID Triamcinolone Acet (Triamcinolone Acetonide 0.1% Crm) 80 Gm Cream..g., 1 APLCT TOP DAILY ON TAILBONE Scheduled PRN Acetaminophen (Acetaminophen) 325 Mg Tablet, 650 MG PO Q4H PRN for PAIN Albuterol Sulfate (Proair Hfa) 8.5 Gm Hfa.aer.ad, 2 PUFF INH Q6H PRN for SHORTNESS OF BREATH Dextromethorphan HBr (Daytime Cough) 5 Mg/5 Ml Syrup, 15 MG PO BID PRN for COUGH Hydroxyzine HCl (Hydroxyzine HCl) 10 Mg Tab, 10 MG PO TID PRN for ANXIETY Insulin Lispro (Humalog) 100 Unit/Ml Inj, 1 DOSE SC ACHS PRN for HIGH BLOOD SUGAR PER SLIDING SCALE Ipratropium/Albuterol Sulfate (Iprat-Albut 0.5-3(2.5) mg/3 ml) 3 Ml Ampul.neb, 1 VIAL INH Q6H PRN for SHORTNESS OF BREATH Lorazepam (Lorazepam) 1 Mg Tab, 1 MG PO BID PRN for ANXIETY Nitroglycerin (Nitroglycerin) 0.4 Mg Tab.subl, 0.4 MG SL Q5M PRN for CHEST PAIN Ondansetron HCl (Ondansetron HCl) 4 Mg Tablet, 4 MG PO BID PRN for NAUSEA Oxycodone HCl (Oxycodone HCl) 5 Mg Tab, 5 MG PO QID PRN for PAIN Allergies Coded Allergies: ciprofloxacin (Verified Allergy, Mild, ITCHY, 11/01/18) Sulfa (Sulfonamide Antibiotics) (Verified Allergy, Unknown, 11/01/18) atorvastatin (Verified Allergy, Unknown, 11/01/18) metoprolol (Verified Allergy, Unknown, 11/01/18) GME ATTESTATION GME ATTESTATION My faculty preceptor for this patient encounter was physically present during the encounter and was fully available. All aspects of the patient interview, examination, medical decision making process, and medical care plan development were reviewed and approved by the faculty preceptor. The faculty preceptor is aware and concurs with the plan as stated in the body of this note and will attest to such by his/her cosignature. ATTENDING NOTE I have reviewed the residents note and have personally examined the patient. I agree with the Residents physical examination and assessment and plan. The patient seems to have CHF exacerbation due to dietary non compliance. Unsure whether patient finished the course of antibiotics for pneumonia that was given after discharge from the last hospitalization however at present i do not feel patient has any pneumonia. She is afebrile, WBC not elevated, CXR more suggestive of fluid overload. So will not give her any antibiotics at present. KEILA SOLER MD Nov 01, 2018 23:00 SOM JIN MD Nov 06, 2018 19:38
[2018-11-01] MEDS ORDERED: ACET-908 PO (23:10)
[2018-11-01] MEDS ORDERED: AMLO10TA5 PO (23:10)
[2018-11-01] MEDS ORDERED: ONDA-195 PO (23:18)
[2018-11-01] MEDS ORDERED: HYDR-3911 PO (23:18)
[2018-11-01] MEDS ORDERED: DAYT1LIQ PO (23:18)
[2018-11-01] MEDS: HEPARIN SOD (PORCINE) 5000 UNITS/ML VIAL SC SCH (23:18)
[2018-11-01] MEDS ORDERED: IPRA0.00 INH (23:18)
[2018-11-01] MEDS: FUROSEMIDE 40 MG/4 ML VIAL (J1940) IV SCH (23:18)
[2018-11-01] MEDS ORDERED: TRIA1CR80 TOP (23:18)
[2018-11-01] MEDS ORDERED: LISI10TA4 PO (23:18)
[2018-11-01] MEDS ORDERED: NITR0.4S14 SL (23:18)
[2018-11-01] MEDS ORDERED: PROAAER10 INH (23:18)
[2018-11-01] MEDS ORDERED: CARV25TA PO (23:18)
[2018-11-01 23:59] VITALS: BP 172/79
[2018-11-02] VITALS (15 sets, daily range): BP systolic 131–156; BP diastolic 59–90; O2SAT 92–99
[2018-11-02] MEDS ORDERED: oxyCODONE 5MG TAB PO PRN ×2 (00:45)
[2018-11-02] MEDS ORDERED: **hydrALAZINE** 50 MG TAB PO SCH ×2 (00:45→09:00)
[2018-11-02] MEDS: CARVedilol 12.5 MG TAB PO SCH ×3 (00:45→21:13)
[2018-11-02] MEDS ORDERED: LISINOPRIL 10 MG TAB PO SCH ×2 (01:00→09:00)
[2018-11-02] MEDS: TICAGRELOR 90 MG TABLET (BRILINTA) PO SCH ×3 (01:12→21:13)
[2018-11-02] MEDS: amLODIPine 10 MG TAB PO SCH ×2 (01:12→09:50)
[2018-11-02] MEDS: IPRATROPIUM 0.5MG/ALBUTEROL 2.5MG INH SOL UD 3ML (DUONEB)(J7620) NEB PRN ×2 (03:34→17:38)
[2018-11-02] MEDS ORDERED: ONDANSETRON 4MG/2ML VIAL (J2405) IV PRN (03:45)
[2018-11-02 05:35] LABS: BASO % 0.3 % (0.0-1.0); EOS # 0.2 10^3/uL (0.0-0.50); EOS % 2.8 % (0.0-3.0); HEMATOCRIT 30.3 % (36.0-47.0); HEMOGLOBIN 9.8 g/dl (12.0-15.5); LYMPH # 0.8 10^3/uL (1.5-4.5); LYMPH % 12.2 % (24.0-44.0); MEAN CORPUSCULAR HEMOGLOBIN 29.6 pg (27.0-33.0); MEAN CORPUSCULAR HGB CONC 32.3 g/dl (32.0-36.5); MEAN CORPUSCULAR VOLUME 91.5 fl (80.0-96.0); MONO # 0.6 10^3/uL (0.0-0.8); MONO % 9.7 % (0.0-5.0); NEUTROPHILS # 4.7 10^3/uL (1.8-7.7); NEUTROPHILS % 74.5 % (36.0-66.0); PLATELET COUNT, AUTOMATED 278 10^3/uL (150-450); RED BLOOD COUNT 3.31 10^6/uL (4.00-5.40); WHITE BLOOD COUNT 6.3 10^3/uL (4.0-10.0)
[2018-11-02 06:01] LABS: CALCIUM LEVEL 8.7 MG/DL (8.8-10.2); CREATININE FOR GFR 2.57 MG/DL (0.55-1.30); GLOMERULAR FILTRATION RATE 19.3 (>39); POTASSIUM SERUM 3.9 MEQ/L (3.5-5.1)
--- NOTE | 2018-11-02 07:23 | REP ---
Portable chest, 10:05 p.m., single AP semi upright view: Comparison is 10/01/2018. There are bilateral pleural effusions as an interval change. There is cardiomegaly, unchanged. The lung rodriguez otherwise clear. The bela, mediastinum, skeletal structures are unremarkable. Impression: Bilateral pleural effusions. Cardiomegaly. Electronically Signed by Shawn Carmichael MD 11/02/2018 07:15 A
[2018-11-02] MEDS ORDERED: PIPERACILLIN/TAZOBACTAM SOD 3.375 GM in D5W MINI-BAG PLUS 50 ML IV SCH (07:30)
[2018-11-02] MEDS: HumaLOG INSULIN (NovoLOG) PER UNIT SC SCH ×4 (07:30→20:54)
[2018-11-02] MEDS ORDERED: amLODIPine 10 MG TAB PO SCH (09:00)
[2018-11-02] MEDS ORDERED: CARVedilol 12.5 MG TAB PO SCH (09:00)
--- NOTE | 2018-11-02 09:16 | REP ---
CHEST X-RAY: Two views. HISTORY: Pneumonia, CHF. COMPARISON STUDY: November 01, 2018. FINDINGS: Moderate cardiomegaly is observed. Bilateral pleural effusions are again seen, perhaps slightly more prominent. Pulmonary vascular congestion is noted. Findings are compatible with CHF. No josé pulmonary edema. Question discoid atelectasis left base. IMPRESSION: CHF pattern with bilateral effusions and cardiomegaly. Pulmonary vascular congestion. Pleural effusions perhaps slightly increased. Electronically Signed by Joaquin Rm MD 11/02/2018 05:25 P
[2018-11-02] MEDS: FUROSEMIDE 40 MG/4 ML VIAL (J1940) IV SCH (09:50)
[2018-11-02] MEDS: buPROPion **XL** TABLET 150MG (WELLBUTRIN XL) PO SCH (09:50)
[2018-11-02] MEDS: LEVOTHYROXINE 25MCG TABLET (0.025MG) PO SCH (09:50)
[2018-11-02] MEDS: HEPARIN SOD (PORCINE) 5000 UNITS/ML VIAL SC SCH ×2 (09:51→21:13)
[2018-11-02] MEDS: PANTOPRAZOLE 40MG TAB (PROTONIX) PO SCH (09:51)
[2018-11-02] MEDS: ARIPiprazole 2 MG TAB PO SCH (09:52)
[2018-11-02] MEDS: PIPERACILLIN/TAZOBACTAM SOD 2.25 GM in D5W MINI-BAG PLUS 50 ML IV SCH ×2 (09:53→16:20)
--- NOTE | 2018-11-02 11:54 | IPNPDOC ---
Subjective Date Seen The patient was seen on 11/02/18. Subjective Chief Complaint/HPI Patient complaining of cough and shortness of breath, Slight improvement since she came here General: Reports: Normal Appetite; Denies: Chills, Night Sweats, Fatigue, Malaise Constitutional: Denies: Chills, Fever, Night Sweats Eyes: Denies: Pain, Vision change ENT: Denies: Head Aches, Ear Pain, Dysphagia Skin: Denies: Rash, Lesions, Breakdown Pulmonary: Reports: Dyspnea, Cough Cardiovascular: Denies: Chest Pain, Palpitations, Orthopnea, Paroxysmal Noc. Dyspnea, Lt Headedness Gastrointestinal: Denies: Nausea, Vomiting, Abdominal Pain, Diarrhea, Constipation Genitourinary: Denies: Dysuria, Frequency, Incontinence, Retention Hematologic: Denies: Bruising, Bleeding Excessively Musculoskeletal: Denies: Neck Pain, Back Pain, Joint Pain, Muscle Pain, Spasms Neurological: Denies: Weakness, Numbness, Change in speech, Confusion Psych: Reports: Mood Normal; Denies: Depression, Memory Issues Objective Physical Examination General Exam: Positive: Alert, No Acute Distress Eye Exam: Positive: PERRLA, Conjunctiva & lids normal, EOMI; Negative: Sclera icteric ENT Exam: Positive: Atraumatic, Mucous membr. moist/pink, Pharynx Normal Neck Exam: Positive: Supple; Negative: JVD, thyromegaly Chest Exam: Positive: Rales, Wheezing, Other (bilateral rales, most on the left side auscultated) Heart Exam: Positive: Rate Normal, Regular Rhythm, Normal S1, Normal S2; Negative: Murmurs, Rubs Telemetry: Positive: No significant arrhythmia Abdomen Exam: Positive: Normal bowel sounds, Soft; Negative: Tenderness, Hepatospenomegaly Female Exam: Positive: Nl Ext Genitalia; Negative: Lesions, Discharge, Odor, Tenderness Extremity Exam: Positive: Normal pulses; Negative: Clubbing, Cyanosis, Edema Skin Exam: Positive: Nl turgor and temperature; Negative: Rash, Breakdown Neuro Exam: Positive: Normal Gait, Normal Speech, Cranial Nerves 3-12 NL, Reflexes 2+ Psych Exam: Positive: Mental status NL, Mood NL, Oriented x 3 Assessment /Plan Problems (1) CHF (congestive heart failure) Status: Acute Response to Treatment: Stable Problem Text: Echocardiogram CT chest with IV contrast to differentiate between CHF versus pneumonia BNP is extremely elevated, most likely secondary to kidney failure and possibly CHF Hold Lasix And negative output status Once the echo and CT chest report is back, then we will start regimen for CHF O2 support Continue home meds (2) Pneumonia Status: Acute Response to Treatment: Stable Problem Text: Possible \left lower lobe pneumonia pro Calcitonin pending Start Zosyn 2.275 mg IV every [address] chest pending Symptomatic care DVT prophylaxis with Lovenox Plan/VTE VTE Prophylaxis Ordered?: Yes VS, I&O, 24H, Fishbone Vital Signs/I&O Vital Signs Date Time Temp Pulse Resp B/P (MAP) Pulse Ox O2 Delivery O2 Flow Rate FiO2 11/02/18 09:52 78 137/59 11/02/18 08:00 98.5 18 97 2.0 11/02/18 06:00 Nasal Cannula I&O- Last 24 Hours up to 6 AM 11/02/18 06:00 Output Total 800 ml Balance -800 ml Laboratory Data 24H LABS Laboratory Tests 2 11/01/18 21:20: Nucleated Red Blood Cells % (auto) 0.0, Anion Gap 7L, Glomerular Filtration Rate 19.4L, Blood Urea Nitrogen 39H, Creatinine 2.55H, Sodium Level 136, Potassium Level 3.9, Chloride Level 106, Carbon Dioxide Level 23, Calcium Level 8.9, As partate Amino Transf (AST/SGOT) 13, Alanine Aminotransferase (ALT/SGPT) 12, Alkaline Phosphatase 126H, Total Bilirubin 0.4, Total Protein 7.2, Albumin 3.5, UN-Pvm-W-Type Natriuretic Peptide [id number], Albumin/Globulin Ratio 0.95L 11/01/18 21:51: Bedside Glucose (Misc Panel) 69L 11/01/18 23:22: Bedside Glucose (Misc Panel) 114H 11/02/18 05:16: Nucleated Red Blood Cells % (auto) 0.0, Anion Gap 8, Glomerular Filtration Rate 19.3L, Blood Urea Nitrogen 38H, Creatinine 2.57H, Sodium Level 137, Potassium Level 3.9, Chloride Level 107, Carbon Dioxide Level 22, Calcium Level 8.7L, Immature Granulocyte % (Auto) 0.5, White Blood Count 6.3, Red Blood Count 3.31L, Hemoglobin 9.8L, Hematocrit 30.3L, Mean Corpuscular Volume 91.5, Mean Corpuscular Hemoglobin 29.6, Mean Corpuscular Hemoglobin Concent 32.3, Red Cell Distribution Width 16.4H, Platelet Count 278, Neutrophils (%) (Auto) 74.5H, Lymphocytes (%) (Auto) 12.2L, Monocytes (%) (Auto) 9.7H, Eosinophils (%) (Auto) 2.8, Basophils (%) (Auto) 0.3, Neutrophils # (Auto) 4.7, Lymphocytes # (Auto) 0.8L, Monocytes # (Auto) 0.6, Eosinophils # (Auto) 0.2, Basophils # (Auto) 0.0 11/02/18 07:19: CBC/BMP Laboratory Tests 11/01/18 21:20 Red Blood Count 3.40 L, Mean Corpuscular Volume 93.8, Mean Corpuscular Hemoglobin 30.6, Mean Corpuscular Hemoglobin Concent 32.6, Red Cell Distribution Width 16.7 H, Calcium Level 8.9, Aspartate Amino Transf (AST/SGOT) 13, Alanine Aminotransferase (ALT/SGPT) 12, Alkaline Phosphatase 126 H, Total Bilirubin 0.4, Total Protein 7.2, Albumin 3.5 11/02/18 05:16 Red Blood Count 3.31 L, Mean Corpuscular Volume 91.5, Mean Corpuscular Hemoglobin 29.6, Mean Corpuscular Hemoglobin Concent 32.3, Red Cell Distribution Width 16.4 H, Calcium Level 8.7 L, Neutrophils (%) (Auto) 74.5 H, Lymphocytes (%) (Auto) 12.2 L, Monocytes (%) (Auto) 9.7 H, Eosinophils (%) (Auto) 2.8, Basophils (%) (Auto) 0.3, Neutrophils # (Auto) 4.7, Lymphocytes # (Auto) 0.8 L, Monocytes # (Auto) 0.6, Eosinophils # (Auto) 0.2, Basophils # (Auto) 0.0 PARVEEN CHUNG MD Nov 02, 2018 11:54
--- NOTE | 2018-11-02 14:10 | REP ---
CT of the chest without IV contrast: Comparison is 09/28/2018. There are moderate bilateral pleural effusions as an interval change. There was a small right pleural effusion on the comparison study. There is compression atelectasis of the lower lobes adjacent to the pleural effusions. Lung rodriguez otherwise clear. There is no adenopathy. Thoracic aorta is unremarkable. Cardiac size is mildly enlarged. There is heavy vascular atheromatous calcification in the coronary arteries. There is no pleural effusion. The visualized upper abdominal contents are unremarkable. Impression: Moderate bilateral pleural effusions with compression atelectasis of the adjacent lung. Cardiomegaly. Heavily calcified atheroma in the coronary arteries. Electronically Signed by Shawn Carmichael MD 11/02/2018 02:02 P
[2018-11-02] MEDS: guaiFENesin DM LIQ 10ML UD PO PRN (16:20)
[2018-11-02] MEDS: FUROSEMIDE 100 MG/10 ML VIAL (J1940) IV SCH (17:29)
[2018-11-02] MEDS: ISOSORBIDE MON. (IMDUR) 30 MG XR TAB PO SCH (21:12)
--- NOTE | 2018-11-02 21:17 | ECHO ---
DATE OF PROCEDURE: 11/02/2018 REFERRING PHYSICIAN: Nash Russell MD PRIMARY FORECLOSURE HOME INSPECTOR: Julio Yoo MD PATIENT LOCATION: Room 3217 REASON FOR ECHOCARDIOGRAM: Shortness of breath. 2D MEASUREMENTS: IVS: 1.4 cm LV: 5.0 cm LVPW: 1.4 cm LA: 4.3 cm Aorta: 3.4 cm IVC: 1.9 cm DOPPLER MEASUREMENTS: Peak velocity across the aortic valve: 1.0 m/s Peak velocity across the LVOT: 0.4 m/s Mitral E: 1.1, Mitral A: 1.6 with a ratio of 1.7 Maximum tricuspid valve velocity: 2.9 m/s 2D COMMENTS: 1. Normal left ventricular size with mildly increased left ventricular wall thickness, but depressed global left ventricular systolic function. The anterior septum from the base to the apex and also the apex markedly hypokinetic. The estimated left ventricular systolic ejection fraction is 25 to 30%. 2. Mildly dilated left atrium and right atrium. Normal right ventricle. 3. The atrial septum appeared to be normal without evidence of defect or shunt. 4. Normal aortic root. 5. No pericardial effusion seen. Pleural effusion was noted. 6. Mildly calcified aortic valve with normal leaflet excursion. Mildly calcified mitral annulus with normal anterior mitral valve leaflet motion. Normal tricuspid valve and pulmonic valve. The proximal pulmonary artery branches were not well visualized. 7. The inferior vena cava was normal in size, central venous pressure is probably normal. DOPPLER: It detects mild to moderate mitral regurgitation and moderately severe tricuspid regurgitation as well as mild pulmonic regurgitation. The calculated pulmonary artery systolic pressure varies between 40 to 50 mmHg. Abnormal relaxation pattern was noted across the mitral valve annulus consistent with grade 2 left ventricular diastolic dysfunction. IMPRESSION: 1. Moderately severe global left ventricular systolic dysfunction with regional wall motion abnormalities consistent with underlying coronary artery disease. There are features of left ventricular diastolic dysfunction, grade 2. 2. Aortic valve sclerosis without stenosis or aortic regurgitation. 3. Mildly elevated left atrium with mitral annulus calcification and mild to moderate mitral regurgitation. 4. Moderate to severe tricuspid regurgitation with moderate pulmonary hypertension and dilated right atrium. 5. Pleural effusion was noted. No pericardial effusion. 6. Mild pulmonic regurgitation.
[2018-11-02] MEDS: LORazepam 1 MG TAB PO PRN (22:14)
[2018-11-03] VITALS (12 sets, daily range): BP systolic 142–166; BP diastolic 64–80; O2SAT 97–99
[2018-11-03] MEDS: PIPERACILLIN/TAZOBACTAM SOD 2.25 GM in D5W MINI-BAG PLUS 50 ML IV SCH (00:04)
[2018-11-03] MEDS: guaiFENesin DM LIQ 10ML UD PO PRN (05:28)
[2018-11-03 05:47] LABS: BASO % 0.4 % (0.0-1.0); EOS # 0.2 10^3/uL (0.0-0.50); EOS % 3.8 % (0.0-3.0); HEMATOCRIT 29.1 % (36.0-47.0); HEMOGLOBIN 9.5 g/dl (12.0-15.5); LYMPH # 0.4 10^3/uL (1.5-4.5); MEAN CORPUSCULAR HEMOGLOBIN 30.3 pg (27.0-33.0); MEAN CORPUSCULAR HGB CONC 32.6 g/dl (32.0-36.5); MEAN CORPUSCULAR VOLUME 92.7 fl (80.0-96.0); MONO # 0.5 10^3/uL (0.0-0.8); MONO % 9.8 % (0.0-5.0); NEUTROPHILS # 4.3 10^3/uL (1.8-7.7); NEUTROPHILS % 77.5 % (36.0-66.0); PLATELET COUNT, AUTOMATED 253 10^3/uL (150-450); RED BLOOD COUNT 3.14 10^6/uL (4.00-5.40); WHITE BLOOD COUNT 5.5 10^3/uL (4.0-10.0)
[2018-11-03 06:09] LABS: CALCIUM LEVEL 8.1 MG/DL (8.8-10.2); CREATININE FOR GFR 2.73 MG/DL (0.55-1.30); POTASSIUM SERUM 3.7 MEQ/L (3.5-5.1)
[2018-11-03] MEDS: HumaLOG INSULIN (NovoLOG) PER UNIT SC SCH ×4 (07:30→20:41)
[2018-11-03] MEDS: amLODIPine 10 MG TAB PO SCH (09:01)
[2018-11-03] MEDS: ARIPiprazole 2 MG TAB PO SCH (09:01)
[2018-11-03] MEDS: PANTOPRAZOLE 40MG TAB (PROTONIX) PO SCH (09:01)
[2018-11-03] MEDS: TICAGRELOR 90 MG TABLET (BRILINTA) PO SCH ×2 (09:02→21:29)
[2018-11-03] MEDS: HEPARIN SOD (PORCINE) 5000 UNITS/ML VIAL SC SCH ×2 (09:02→21:29)
[2018-11-03] MEDS: CARVedilol 12.5 MG TAB PO SCH ×2 (09:02→21:28)
[2018-11-03] MEDS: buPROPion **XL** TABLET 150MG (WELLBUTRIN XL) PO SCH (09:02)
[2018-11-03] MEDS: LEVOTHYROXINE 25MCG TABLET (0.025MG) PO SCH (09:02)
[2018-11-03] MEDS: FUROSEMIDE 100 MG/10 ML VIAL (J1940) IV SCH ×2 (09:03→17:05)
--- NOTE | 2018-11-03 11:51 | IPNPDOC ---
Subjective Date Seen The patient was seen on 11/03/18. Subjective Chief Complaint/HPI Patient is still complaining of shortness of breath and some cough but has improved since since admission General: Reports: Normal Appetite; Denies: Chills, Night Sweats, Fatigue, Malaise Constitutional: Denies: Chills, Fever, Night Sweats Eyes: Denies: Pain, Vision change ENT: Denies: Head Aches, Ear Pain, Dysphagia Skin: Denies: Rash, Lesions, Breakdown Pulmonary: Reports: Dyspnea, Cough Cardiovascular: Denies: Chest Pain, Palpitations, Orthopnea, Paroxysmal Noc. Dyspnea, Lt Headedness Gastrointestinal: Denies: Nausea, Vomiting, Abdominal Pain, Diarrhea, Cons tipation Genitourinary: Denies: Dysuria, Frequency, Incontinence, Retention Hematologic: Denies: Bruising, Bleeding Excessively Musculoskeletal: Denies: Neck Pain, Back Pain, Joint Pain, Muscle Pain, Spasms Neurological: Denies: Weakness, Numbness, Change in speech, Confusion Psych: Reports: Mood Normal; Denies: Depression, Memory Issues Objective Physical Examination General Exam: Positive: Alert, No Acute Distress Eye Exam: Positive: PERRLA, Conjunctiva & lids normal, EOMI; Negative: Sclera icteric ENT Exam: Positive: Atraumatic, Mucous membr. moist/pink, Pharynx Normal Neck Exam: Positive: Supple; Negative: JVD, thyromegaly Chest Exam: Positive: Rales, Wheezing, Other (bilateral rales, most on the left side auscultated) Heart Exam: Positive: Rate Normal, Regular Rhythm, Normal S1, Normal S2; Negative: Murmurs, Rubs Telemetry: Positive: No significant arrhythmia Abdomen Exam: Positive: Normal bowel sounds, Soft; Negative: Tenderness, Hepatospenomegaly Female Exam: Positive: Nl Ext Genitalia; Negative: Lesions, Discharge, Odor, Tenderness Extremity Exam: Positive: Normal pulses; Negative: Clubbing, Cyanosis, Edema Skin Exam: Positive: Nl turgor and temperature; Negative: Rash, Breakdown Neuro Exam: Positive: Normal Gait, Normal Speech, Cranial Nerves 3-12 NL, Re flexes 2+ Psych Exam: Positive: Mental status NL, Mood NL, Oriented x 3 Assessment /Plan Problems (1) CHF (congestive heart failure) Status: Acute Response to Treatment: Stable Problem Text: Echocardiogram: 1. Moderately severe global left ventricular systolic dysfunction with regional wall motion abnormalities consistent with underlying coronary artery disease. There are features of left ventricular diastolic dysfunction, grade 2. 2. Aortic valve sclerosis without stenosis or aortic regurgitation. 3. Mildly elevated left atrium with mitral annulus calcification and mild to moderate mitral regurgitation. 4. Moderate to severe tricuspid regurgitation with moderate pulmonary hypertension and dilated right atrium. 5. Pleural effusion was noted. No pericardial effusion. 6. Mild pulmonic regurgitation. CT chest: Bilateral pleural effusions, no infiltrates Rolling BNP improving clinical status and negative output balance Continue Lasix as per orders O2 support Continue home meds (2) Pneumonia Status: Acute Response to Treatment: Stable Problem Text: Calcitonin is negative Abuse wbc count is within normal range Patient is afebrile Pneumonia has been ruled out on the basis of laboratory workup Plan/VTE VTE Prophylaxis Ordered?: Yes VS, I&O, 24H, Fishbone Vital Signs/I&O Vital Signs Date Time Temp Pulse Resp B/P (MAP) Pulse Ox O2 Delivery O2 Flow Rate FiO2 11/03/18 09:02 63 155/60 11/03/18 08:00 2.0 11/03/18 08:00 97.8 18 97 11/03/18 06:00 Nasal Cannula I&O- Last 24 Hours up to 6 AM 11/03/18 06:00 Intake Total 770 ml Output Total 2400 ml Balance -1630 ml Laboratory Data 24H LABS Laboratory Tests 2 11/02/18 12:58: Bedside Glucose (Misc Panel) 95 11/02/18 16:26: Bedside Glucose (Misc Panel) 105 11/02/18 20:01: Bedside Glucose (Misc Panel) 73L 11/03/18 05:15: Immature Granulocyte % (Auto) 0.5, White Blood Count 5.5, Red Blood Count 3.14L, Hemoglobin 9.5L, Hematocrit 29.1L, Mean Corpuscular Volume 92.7, Mean Corpuscular Hemoglobin 30.3, Mean Corpuscular Hemoglobin Concent 32.6, Red Cell Distribution Width 16.2H, Platelet Count 253, Neutrophils (%) (Auto) 77.5H, Lymphocytes (%) (Auto) 8.0L, Monocytes (%) (Auto) 9.8H, Eosinophils (%) (Auto) 3.8H, Basophils (%) (Auto) 0.4, Neutrophils # (Auto) 4.3, Lymphocytes # (Auto) 0.4L, Monocytes # (Auto) 0.5, Eosinophils # (Auto) 0.2, Basophils # (Auto) 0.0, Nucleated Red Blood Cells % (auto) 0.0, Anion Gap 6L, Glomerular Filtration Rate 18.0L, Blood Urea Nitrogen 42H, Creatinine 2.73H, Sodium Level 136, Potassium Level 3.7, Chloride Level 106, Carbon Dioxide Level 24, Calcium Level 8.1L CBC/BMP Laboratory Tests 11/03/18 05:15 Red Blood Count 3.14 L, Mean Corpuscular Volume 92.7, Mean Corpuscular Hemoglobin 30.3, Mean Corpuscular Hemoglobin Concent 32.6, Red Cell Distribution Width 16.2 H, Neutrophils (%) (Auto) 77.5 H, Lymphocytes (%) (Auto) 8.0 L, Monocytes (%) (Auto) 9.8 H, Eosinophils (%) (Auto) 3.8 H, Basophils (%) (Auto) 0.4, Neutrophils # (Auto) 4.3, Lymphocytes # (Auto) 0.4 L, Monocytes # (Auto) 0.5, Eosinophils # (Auto) 0.2, Basophils # (Auto) 0.0, Calcium Level 8.1 L PARVEEN CHUNG MD Nov 03, 2018 11:51
[2018-11-03] MEDS: LISINOPRIL 5 MG TAB PO SCH (13:23)
[2018-11-03] MEDS: LORazepam 1 MG TAB PO PRN (19:47)
[2018-11-03] MEDS: ISOSORBIDE MON. (IMDUR) 30 MG XR TAB PO SCH (21:28)
[2018-11-04 06:00] VITALS: BP 154/76
[2018-11-04 06:23] LABS: BASO % 0.7 % (0.0-1.0); EOS # 0.3 10^3/uL (0.0-0.50); EOS % 5.5 % (0.0-3.0); HEMATOCRIT 29.2 % (36.0-47.0); HEMOGLOBIN 9.8 g/dl (12.0-15.5); LYMPH # 0.6 10^3/uL (1.5-4.5); MEAN CORPUSCULAR HEMOGLOBIN 30.3 pg (27.0-33.0); MEAN CORPUSCULAR HGB CONC 33.6 g/dl (32.0-36.5); MEAN CORPUSCULAR VOLUME 90.4 fl (80.0-96.0); MONO # 0.6 10^3/uL (0.0-0.8); MONO % 10.3 % (0.0-5.0); NEUTROPHILS # 3.9 10^3/uL (1.8-7.7); NEUTROPHILS % 71.9 % (36.0-66.0); PLATELET COUNT, AUTOMATED 270 10^3/uL (150-450); RED BLOOD COUNT 3.23 10^6/uL (4.00-5.40); WHITE BLOOD COUNT 5.4 10^3/uL (4.0-10.0)
[2018-11-04 06:48] LABS: CALCIUM LEVEL 8.4 MG/DL (8.8-10.2); CREATININE FOR GFR 2.76 MG/DL (0.55-1.30); GLOMERULAR FILTRATION RATE 17.7 (>39); POTASSIUM SERUM 3.6 MEQ/L (3.5-5.1)
[2018-11-04] MEDS: HumaLOG INSULIN (NovoLOG) PER UNIT SC SCH ×2 (06:58→12:14)
[2018-11-04] MEDS: HEPARIN SOD (PORCINE) 5000 UNITS/ML VIAL SC SCH (09:38)
[2018-11-04] MEDS: FUROSEMIDE 100 MG/10 ML VIAL (J1940) IV SCH (09:38)
[2018-11-04] MEDS: ARIPiprazole 2 MG TAB PO SCH (09:39)
[2018-11-04] MEDS: TICAGRELOR 90 MG TABLET (BRILINTA) PO SCH (09:39)
[2018-11-04 09:40] VITALS: BP 165/65
[2018-11-04] MEDS: CARVedilol 12.5 MG TAB PO SCH (09:40)
[2018-11-04] MEDS: LEVOTHYROXINE 25MCG TABLET (0.025MG) PO SCH (09:40)
[2018-11-04] MEDS: LISINOPRIL 5 MG TAB PO SCH (09:40)
[2018-11-04] MEDS: PANTOPRAZOLE 40MG TAB (PROTONIX) PO SCH (09:40)
[2018-11-04] MEDS: amLODIPine 10 MG TAB PO SCH (09:40)
[2018-11-04] MEDS: buPROPion **XL** TABLET 150MG (WELLBUTRIN XL) PO SCH (09:44)
--- NOTE | 2018-11-04 13:05 | DS.PDOC ---
Discharge Summary General Date of Admission Nov 01, 2018 at 20:30 Date of Discharge 11/04/2018 Attending Physician: PARVEEN CHUNG MD Discharge Summary PROCEDURES PERFORMED DURING STAY: [None]. ADMITTING DIAGNOSES: 1. [Acute on chronic systolic CHF]. DISCHARGE DIAGNOSES: 1. [Acute on chronic systolic CHF]. COMPLICATIONS/CHIEF COMPLAINT: CHF. HISTORY OF PRESENT ILLNESS: [ Tabby Sosa is a 78-year-old female with past medical history of congestive heart failure (EF 39% , 07/2018) and type 2 diabetes with chronic kidney disease who presents as a transfer from outside hospital for pneumonia necessitating pulmonary consultation. The patient was recently admitted to [facility] on 09/28/2018 with shortness of breath, found to have community-acquired pneumonia, decompensated systolic congestive heart failure and acute on chronic renal failure. She was treated with IV doxycycline and Rocephin and was appropriately diuresed. She was transitioned to oral Cefdinir and oral doxycycline and was discharged home and told to follow-up with her primary care doctor. She was also seen by nephrology for her chronic renal failure and iron deficiency anemia which was stable on discharge. Today she reports she went to the ED at the outside hospital for several days of worsened shortness of breath and weakness, decreased appetite and subjective fevers. Reportedly she did not take her antibiotics and did not finish the courses when she was discharged. At the outside hospital she was also found to have small pleural effusions bilaterally. She does report some shortness of breath and difficulty laying flat, but this is not worse than normal. She is not on any oxygen at home]. HOSPITAL COURSE: [Patient was admitted to the telemetry bed. We'll started on bus driver/monitor monitoring. Echocardiogram was obtained which showed1. Moderately severe global left ventricular systolic dysfunction with regional wall motion abnormalities consistent with underlying coronary artery disease. There are features of left ventricular diastolic dysfunction, grade 2. 2. Aortic valve sclerosis without stenosis or aortic regurgitation. 3. Mildly elevated left atrium with mitral annulus calcification and mild to moderate mitral regurgitation. 4. Moderate to severe tricuspid regurgitation with moderate pulmonary hypertension and dilated right atrium. 5. Pleural effusion was noted. No pericardial effusion. 6. Mild pulmonic regurgitation. Patient was started on IV Lasix for bilateral pleural effusions which she responded very well, pneumonia was ruled out on the basis of chest x-ray, CT of the chest and telemetry were patient is comfortable clinically stable and no shortness of breath. He can be discharged in 1 oral diuresis. Patient can follow with her PCP and cosmetic sales consultant as an outpatient in one week]. DISCHARGE MEDICATIONS: Please see below. ALLERGIES: Please see below. PHYSICAL EXAMINATION ON DISCHARGE: VITAL SIGNS: Please see below. GENERAL: [Normal] HEENT: [PERRLA] NECK: [Supple] CARDIOVASCULAR EXAMINATION: S1, S2, regular, no murmur RESPIRATORY EXAMINATION: Crackles at bilateral bases. No rhonchi, wheezing ABDOMINAL EXAMINATION:. Benign EXTREMITIES:. No clubbing, cyanosis or edema SKIN: Normal. Normal NEUROLOGICAL EXAMINATION: [Focal motor or sensory deficit] PSYCHIATRIC EXAMINATION: [Normal] LABORATORY DATA: Please see below. IMAGING: [As above] PROGNOSIS: [Good] ACTIVITY: [As tolerated]. DIET: [2 g sodium, low-fat, low-cholesterol] DISCHARGE PLAN: [Discharged home] DISPOSITION: . Home DISCHARGE INSTRUCTIONS: 1. [As above]. ITEMS TO FOLLOWUP ON ON OUTPATIENT: 1. [Follow with PCP and cosmetic sales consultant as outpatient]. DISCHARGE CONDITION: [Stable]. TIME SPENT ON DISCHARGE: Greater than [42] minutes. Vital Signs/I&Os Vital Signs Date Time Temp Pulse Resp B/P (MAP) Pulse Ox O2 Delivery O2 Flow Rate FiO2 11/04/18 09:40 70 165/65 11/04/18 06:00 97.3 17 97 11/03/18 16:00 0.0 11/03/18 06:00 Nasal Cannula I&O- Last 24 Hours up to 6 AM 11/04/18 06:00 Intake Total 820 ml Output Total 1300 ml Balance -480 ml Laboratory Data Labs 24H Laboratory Tests 2 11/03/18 13:16: Bedside Glucose (Misc Panel) 93 11/03/18 17:03: Bedside Glucose (Misc Panel) 106 11/03/18 19:54: Bedside Glucose (Misc Panel) 82L 11/04/18 05:54: Immature Granulocyte % (Auto) 0.6, White Blood Count 5.4, Red Blood Count 3.23L, Hemoglobin 9.8L, Hematocrit 29.2L, Mean Corpuscular Volume 90.4, Mean Corpuscular Hemoglobin 30.3, Mean Corpuscular Hemoglobin Concent 33.6, Red Cell Distribution Width 15.6H, Platelet Count 270, Neutrophils (%) (Auto) 71.9H, Lymphocytes (%) (Auto) 11.0L, Monocytes (%) (Auto) 10.3H, Eosinophils (%) (Auto) 5.5H, Basophils (%) (Auto) 0.7, Neutrophils # (Auto) 3.9, Lymphocytes # (Auto) 0.6L, Monocytes # (Auto) 0.6, Eosinophils # (Auto) 0.3, Basophils # (Auto) 0.0, Nucleated Red Blood Cells % (auto) 0.0, Anion Gap 8, Glomerular Filtration Rate 17.7L, Blood Urea Nitrogen 46H, Creatinine 2.76H, Sodium Level 138, Potassium Level 3.6, Chloride Level 106, Carbon Dioxide Level 24, Calcium Level 8.4L 11/04/18 11:38: Bedside Glucose (Misc Panel) 105 CBC/BMP Laboratory Tests 11/04/18 05:54 Red Blood Count 3.23 L, Mean Corpuscular Volume 90.4, Mean Corpuscular Hemogl obin 30.3, Mean Corpuscular Hemoglobin Concent 33.6, Red Cell Distribution Width 15.6 H, Neutrophils (%) (Auto) 71.9 H, Lymphocytes (%) (Auto) 11.0 L, Monocytes (%) (Auto) 10.3 H, Eosinophils (%) (Auto) 5.5 H, Basophils (%) (Auto) 0.7, Neutrophils # (Auto) 3.9, Lymphocytes # (Auto) 0.6 L, Monocytes # (Auto) 0.6, Eosinophils # (Auto) 0.3, Basophils # (Auto) 0.0, Calcium Level 8.4 L FSBS Laboratory Tests Test 11/03/18 13:16 11/03/18 17:03 11/03/18 19:54 11/04/18 11:38 Range/Units Bedside Glucose (Misc Panel) 93 106 82 105 83-110 MG/DL Discharge Medications Scheduled Amlodipine Besylate (Amlodipine Besylate) 10 Mg Tablet, 10 MG PO DAILY, (Reported) Aripiprazole (Abilify) 2 Mg Tab, 2 MG PO DAILY, (Reported) Aspirin (Aspirin EC) 81 Mg Tabec, 81 MG PO DAILY, (Reported) Bupropion Hcl (Bupropion Xl) 150 Mg Tab, 150 MG PO DAILY, (Reported) Carvedilol (Carvedilol) 25 Mg Tablet, 25 MG PO BID, (Reported) Ferrous Sulfate (Ferrous Sulfate) 325 Mg Tab, 325 MG PO TID, (Reported) MORNING, LUNCH AND BEDTIME Folic Acid (Folic Acid) 1 Mg Tab, 1 MG PO DAILY, (Reported) TAKES AT LUNCHTIME Furosemide (Furosemide) 20 Mg Tab, 20 MG PO DAILY, (Reported) Hydralazine HCl (Hydralazine HCl) 50 Mg Tablet, 50 MG PO BID, (Reported) Isosorbide Mononitrate (Isosorbide Mononitrate ER) 30 Mg Tab, 90 MG PO QHS, (Reported) Levothyroxine Sodium (Synthroid) 25 Mcg Tab, 25 MCG PO DAILY, (Reported) Lisinopril (Lisinopril) 10 Mg Tablet, 10 MG PO DAILY, (Reported) Magnesium Oxide (Magnesium Oxide) 400 Mg Tab, 400 MG PO DAILY, (Reported) TAKES AT LUNCH Pantoprazole Sodium (Pantoprazole Sodium) 40 Mg Tab, 40 MG PO DAILY, (Reported) Ticagrelor Base (Brilinta) 90 Mg Tab, 90 MG PO BID, (Reported) Triamcinolone Acet (Triamcinolone Acetonide 0.1% Crm) 80 Gm Cream..g., 1 APLCT TOP DAILY, (Reported) ON TAILBONE Scheduled PRN Acetaminophen (Acetaminophen) 325 Mg Tablet, 650 MG PO Q4H PRN for PAIN, ( Reported) Albuterol Sulfate (Proair Hfa) 8.5 Gm Hfa.aer.ad, 2 PUFF INH Q6H PRN for SHORTNESS OF BREATH, (Reported) Dextromethorphan HBr (Daytime Cough) 5 Mg/5 Ml Syrup, 15 MG PO BID PRN for COUGH, (Reported) Hydroxyzine HCl (Hydroxyzine HCl) 10 Mg Tab, 10 MG PO TID PRN for ANXIETY, (Reported) Insulin Lispro (Humalog) 100 Unit/Ml Inj, 1 DOSE SC ACHS PRN for HIGH BLOOD SUGAR, (Reported) PER SLIDING SCALE Ipratropium/Albuterol Sulfate (Iprat-Albut 0.5-3(2.5) mg/3 ml) 3 Ml Ampul.neb, 1 VIAL INH Q6H PRN for SHORTNESS OF BREATH, (Reported) Lorazepam (Lorazepam) 1 Mg Tab, 1 MG PO BID PRN for ANXIETY, (Reported) Nitroglycerin (Nitroglycerin) 0.4 Mg Tab.subl, 0.4 MG SL Q5M PRN for CHEST PAIN, (Reported) Ondansetron HCl (Ondansetron HCl) 4 Mg Tablet, 4 MG PO BID PRN for NAUSEA, (Reported) Oxycodone HCl (Oxycodone HCl) 5 Mg Tab, 5 MG PO QID PRN for PAIN, (Reported) Allergies Coded Allergies: ciprofloxacin (Verified Allergy, Mild, ITCHY, 11/01/18) Sulfa (Sulfonamide Antibiotics) (Verified Allergy, Unknown, 11/01/18) atorvastatin (Verified Allergy, Unknown, 11/01/18) metoprolol (Verified Allergy, Unknown, 11/01/18) PARVEEN CHUNG MD Nov 04, 2018 13:05
== END 2018-11-04 13:25 | disposition home or self-care (01) | DRG 291 ==
LOC: M PCU 20:30 → M MSPAV 11-03 22:42
PROVIDERS: ADMIT Internal Medicine; ATTEND Internal Medicine
DX: I13.0 Hypertensive heart and chronic kidney disease with heart failure and stage 1 through stage 4 chronic kidney disease, or unspecified chronic kidney disease (principal); I50.23 Acute on chronic systolic (congestive) heart failure; J90 Pleural effusion, not elsewhere classified; N18.4 Chronic kidney disease, stage 4 (severe); E11.29 Type 2 diabetes mellitus with other diabetic kidney complication; D50.9 Iron deficiency anemia, unspecified; I27.20 Pulmonary hypertension, unspecified; I08.3 Combined rheumatic disorders of mitral, aortic and tricuspid valves; Z79.82 Long term (current) use of aspirin; Z79.899 Other long term (current) drug therapy; Z88.2 Allergy status to sulfonamides; Z88.8 Allergy status to other drugs, medicaments and biological substances; E11.51 Type 2 diabetes mellitus with diabetic peripheral angiopathy without gangrene; I25.10 Atherosclerotic heart disease of native coronary artery without angina pectoris; Z95.2 Presence of prosthetic heart valve; E03.9 Hypothyroidism, unspecified; F32.9 Major depressive disorder, single episode, unspecified; E63.1 Imbalance of constituents of food intake

== ENCOUNTER 2018-12-27 21:21 | Observation (INO) | payer MEDICARE, MEDICAID ==
[~2018-12-27 21:21] MED LIST changes: +ACET-908 PO; +DAYT1LIQ PO; +HYDR-3911 PO; +IPRA0.00 INH; +LISI10TA4 PO; +NITR0.4S14 SL; +ONDA-195 PO; +PROAAER10 INH; +TRIA1CR80 TOP
[2018-12-27 22:51] VITALS: BP 171/76
[2018-12-28] MEDS ORDERED: IPRATROPIUM 0.5MG/ALBUTEROL 2.5MG INH SOL UD 3ML (DUONEB)(J7620) NEB PRN (01:00)
[2018-12-28 01:14] LABS: HEMATOCRIT 33.4 % (36.0-47.0); HEMOGLOBIN 11.5 g/dl (12.0-15.5); MEAN CORPUSCULAR HEMOGLOBIN 31.6 pg (27.0-33.0); MEAN CORPUSCULAR HGB CONC 34.4 g/dl (32.0-36.5); MEAN CORPUSCULAR VOLUME 91.8 fl (80.0-96.0); PLATELET COUNT, AUTOMATED 430 10^3/uL (150-450); RED BLOOD COUNT 3.64 10^6/uL (4.00-5.40); WHITE BLOOD COUNT 8.5 10^3/uL (4.0-10.0)
[2018-12-28 01:15] VITALS: BP 150/72
[2018-12-28 01:32] LABS: CALCIUM LEVEL 8.1 MG/DL (8.8-10.2); CREATININE FOR GFR 2.81 MG/DL (0.55-1.30); GLOMERULAR FILTRATION RATE 17.4 (>39); POTASSIUM SERUM 4.2 MEQ/L (3.5-5.1)
[2018-12-28 02:00] VITALS: BP 174/77
[2018-12-28] MEDS: ACETAMINOPHEN TAB 650MG DOSE (2X325MG) PO PRN ×4 (02:02→18:58)
[2018-12-28] MEDS ORDERED: ACET-897 PO (02:08)
[2018-12-28] MEDS ORDERED: ENTR1TAB7 PO (02:08)
[2018-12-28] MEDS ORDERED: FURO40TA2 PO (02:08)
[2018-12-28] MEDS ORDERED: hydrOXYzine 10 MG TAB PO PRN (02:45)
--- NOTE | 2018-12-28 02:50 | HPEPDOC ---
[facility] Medical History & Physical Date of Admission Dec 28, 2018 Date of Service: Dec 28, 2018 History and Physical CHIEF COMPLAINT: flank pain HISTORY OF PRESENT ILLNESS: Patient is 78-year-old female past medical history of HFrEF, CKD IV, HTN, Depression, IDDM, Hypothyroidism, PAD, and CAD s/p stents was transferred from [place] [facility] with reported flank pain and uremia. Pain was described as L. sided abdominal radiating to the back, intermittent with high intensity. CT abdomen showed nonobstructing stone. However, ER at [facility] was concern due to BUN of 90 there and requesting nephrology evaluation. Patient normally follows with Dr. Brantley. Patient denies any complaints apart from intermittent abdominal pain. PAST MEDICAL HISTORY: Refer to [facility] PAST SURGICAL HISTORY: stent placement RLE BKA SOCIAL HISTORY: Denies tobacco, alcohol or illicit drug use. FAMILY HISTORY: Father had CAD mother had breast cancer ALLERGIES: Please see below. REVIEW OF SYSTEMS: 10 point review of system negative except as stated in HPI HOME MEDICATIONS: Please see below. PHYSICAL EXAMINATION: General: No acute distress, Alert Eyes: Normal sclera, EOMI, LE HENT: Atraumatic, neck supple, moist mucous membranes Cardiovascular: Normal rate, normal rhythm. No murmurs appreciated. Pulmonary: Clear to auscultation b/l, no wheezing GI: Soft, mild L. sided abdominal discomfort on palpation, nondistended Skin: Warm and dry Neuro: CN grossly intact. No focal deficits. Strengths equal b/l. Psych: oriented x 3 LABORATORY DATA: See below. IMAGING: CT from [facility] with evidence of b/l nonobstructive nephrolithiasis MICROBIOLOGY: Please see below. ASSESSMENT AND PLAN: 1. Nephrolithiasis - Nonobstructing from CT at [facility]. - BUN and Cr elevated, although Cr not significantly higher than baseline. - IVF hydration. Nephrology consult in AM. - No urgent need for urology consult at this time if stone is nonobstructing with no evidence of hydronephrosis. - Pain control. - Zofran for nausea. 2. CAD - s/p stent placement. No reported chest pain. - resume home meds. 3. DM - sliding scale insulin at home. - Resume sliding scale insulin. Accuchecks ACHS. - hypoglycemic protocol PRN. 4. Hypothyroidism - resume home meds 5. PAD 6. KEYLA on CKD - IVF. Nephrology consult. DVT ppx: HSQ Code status: Full code. Vital Signs Vital Signs Date Time Temp Pulse Resp B/P (MAP) Pulse Ox O2 Delivery O2 Flow Rate FiO2 12/28/18 02:00 97.7 60 18 174/77 (109) 100 Laboratory Data Labs 24H Laboratory Tests 2 12/28/18 01:02: Nucleated Red Blood Cells % (auto) 0.0, Anion Gap 9, Glomerular Filtration Rate 17.4L, Blood Urea Nitrogen 87H, Creatinine 2.81H, Sodium Level 135L, Potassium Level 4.2, Chloride Level 106, Carbon Dioxide Level 20L, Calcium Level 8.1L CBC/BMP Laboratory Tests 12/28/18 01:02 Red Blood Count 3.64 L, Mean Corpuscular Volume 91.8, Mean Corpuscular Hemoglobi n 31.6, Mean Corpuscular Hemoglobin Concent 34.4, Red Cell Distribution Width 13.7, Calcium Level 8.1 L Home Medications Scheduled Aripiprazole (Abilify) 2 Mg Tab, 2 MG PO DAILY Aspirin (Aspirin EC) 81 Mg Tabec, 81 MG PO DAILY Bupropion Hcl (Bupropion Xl) 150 Mg Tab, 150 MG PO DAILY Ferrous Sulfate (Ferrous Sulfate) 325 Mg Tab, 325 MG PO DAILY Folic Acid (Folic Acid) 1 Mg Tab, 1 MG PO DAILY TAKES AT LUNCHTIME Furosemide (Furosemide) 40 Mg Tablet, 40 MG PO DAILY Hydralazine HCl (Hydralazine HCl) 50 Mg Tablet, 50 MG PO BID Insulin Lispro (Humalog) 100 Unit/Ml Inj, 1 DOSE SC ACHS PER SLIDING SCALE Isosorbide Mononitrate (Isosorbide Mononitrate ER) 30 Mg Tab, 90 MG PO QHS Levothyroxine Sodium (Synthroid) 25 Mcg Tab, 25 MCG PO DAILY Magnesium Oxide (Magnesium Oxide) 400 Mg Tab, 400 MG PO DAILY TAKES AT LUNCH Pantoprazole Sodium (Pantoprazole Sodium) 40 Mg Tab, 40 MG PO DAILY Sacubitril/Valsartan (Entresto 49 mg-51 mg Tablet) 1 Each Tablet, 1 TAB PO BID Ticagrelor Base (Brilinta) 90 Mg Tab, 90 MG PO BID Triamcinolone Acet (Triamcinolone Acetonide 0.1% Crm) 80 Gm Cream..g., 1 DOSE TOP DAILY ON TAILBONE Scheduled PRN Acetaminophen (Tylenol Extra Strength) 500 Mg Tablet, 1,000 MG PO Q6H PRN for PAIN Albuterol Sulfate (Proair Hfa) 8.5 Gm Hfa.aer.ad, 2 PUFF INH Q6H PRN for SHORTNESS OF BREATH Dextromethorphan HBr (Daytime Cough) 5 Mg/5 Ml Syrup, 15 MG PO BID PRN for COUGH Hydroxyzine HCl (Hydroxyzine HCl) 10 Mg Tab, 10 MG PO TID PRN for ANXIETY Ipratropium/Albuterol Sulfate (Iprat-Albut 0.5-3(2.5) mg/3 ml) 3 Ml Ampul.neb, 1 VIAL INH Q6H PRN for SHORTNESS OF BREATH Lorazepam (Lorazepam) 1 Mg Tab, 1 MG PO BID PRN for ANXIETY Nitroglycerin (Nitroglycerin) 0.4 Mg Tab.subl, 0.4 MG SL NITRO PRN for CHEST PAIN Ondansetron HCl (Ondansetron HCl) 4 Mg Tablet, 4 MG PO BID PRN for NAUSEA Allergies Coded Allergies: ciprofloxacin (Verified Allergy, Mild, ITCHY, 11/01/18) Sulfa (Sulfonamide Antibiotics) (Verified Allergy, Unknown, 11/01/18) atorvastatin (Verified Allergy, Unknown, 11/01/18) metoprolol (Verified Allergy, Unknown, 11/01/18) A-FIB/CHADSVASC A-FIB History Current/History of A-Fib/PAF?: No ANNA JIMENES MD Dec 28, 2018 02:50
[2018-12-28] MEDS ORDERED: GLUCAGON FOR INJ 1 MG VIAL (J1610) SC PRN (03:00)
[2018-12-28] MEDS ORDERED: GLUCOSE 4 GM CHEW TABLET PO PRN (03:00)
[2018-12-28] MEDS ORDERED: DEXTROSE 50% 50 ML SYRINGE IV PRN (03:00)
[2018-12-28] MEDS: NS 1,000 ML IV SCH ×2 (03:26→16:53)
[2018-12-28] MEDS: ISOSORBIDE MON. (IMDUR) 30 MG XR TAB PO SCH ×2 (03:27→21:35)
[2018-12-28] MEDS: HEPARIN SOD (PORCINE) 5000 UNITS/ML VIAL SC SCH ×3 (05:31→21:36)
[2018-12-28] MEDS: LEVOTHYROXINE 25MCG TABLET (0.025MG) PO SCH (05:31)
[2018-12-28 06:00] VITALS: BP 148/72
[2018-12-28] MEDS: TICAGRELOR 90 MG TABLET (BRILINTA) PO SCH ×2 (08:32→21:35)
[2018-12-28] MEDS: HumaLOG INSULIN (NovoLOG) PER UNIT SC SCH ×4 (08:32→21:00)
[2018-12-28] MEDS: buPROPion **XL** TABLET 150MG (WELLBUTRIN XL) PO SCH (08:32)
[2018-12-28] MEDS: FERROUS SULFATE 325MG TAB PO SCH (08:32)
[2018-12-28] MEDS: PANTOPRAZOLE 40MG TAB (PROTONIX) PO SCH (08:32)
[2018-12-28] MEDS: **hydrALAZINE** 50 MG TAB PO SCH ×2 (08:32→21:35)
[2018-12-28] MEDS: ARIPiprazole 2 MG TAB PO SCH (08:32)
[2018-12-28] MEDS: ASPIRIN 81 MG ENTERIC TAB PO SCH (08:32)
[2018-12-28] MEDS: LORazepam 1 MG TAB PO PRN ×2 (08:34→22:46)
[2018-12-28] MEDS ORDERED: ENTRESTO 49-51MG TABLET (SACUBITRIL/VALSARTAN) PO SCH (09:00)
[2018-12-28] MEDS ORDERED: FUROSEMIDE 40 MG TAB PO SCH (09:00)
--- NOTE | 2018-12-28 10:44 | REP ---
REASON: Uremia. COMPARISON: 09/30/2018 which was within normal limits. The right kidney measures 8.2 x 4.3 x 4.1 cm and the left kidney measures 9.8 x 3.6 x 4.9 cm. The renal cortical echoes are unchanged and within normal limits. There is some thinning of the renal cortex status quo. Cortical medullary differentiation is preserved. There is no hydronephrosis. There are no cystic or solid masses. IMPRESSION: No significant change from 09/30/2018 as described above. Electronically Signed by Richard Pederson DO 12/28/2018 10:49 A
[2018-12-28] MEDS: FOLIC ACID 1 MG TAB PO SCH (12:47)
[2018-12-28] MEDS: TRIAMCINOLONE ACET 0.1% CREAM 80 GM TOP SCH (12:47)
[2018-12-28] MEDS: MAGNESIUM OXIDE 400 MG TAB (MAG-OX) PO SCH (12:47)
--- NOTE | 2018-12-28 13:29 | CR ---
DATE OF CONSULTATION: 12/28/2018 REQUESTING PHYSICIAN: Dr. Mindy Sahu REASON FOR CONSULTATION: Acute kidney injury (KEYLA) on chronic kidney disease (CKD) stage 4. HISTORY OF PRESENT ILLNESS: The patient is a 78-year-old female who is an established office patient of Dr. Fitzgerald. She has longstanding CKD stage 4, but reports she has not yet established with nephrology, although her primary care physician has apparently referred her for the same. She also has a history of heart failure with reduced ejection fraction, hypertension, depression, hypothyroidism, insulin dependent diabetes, and other comorbid conditions mentioned below. The patient was transferred from [facility] to [facility] for worsening renal function in the setting of nonobstructive left nephrolithiasis. The patient tells me she has been having left flank pain for several days and has been self medicating at home with Aleve and Motrin without any improvement in the pain. She denies any chest pain, shortness of breath or leg edema. She reports improved urination since receiving IV fluids in the hospital. PAST MEDICAL HISTORY: CKD stage 4, heart failure with reduced ejection fraction, hypertension, depression, insulin dependent diabetes mellitus, hypothyroidism, peripheral arterial disease, coronary artery disease status post stents times six, nephrolithiasis, dyslipidemia, anemia. ALLERGIES: - SULFA - ATORVASTATIN - CIPROFLOXACIN - METOPROLOL PAST SURGICAL HISTORY: History of coronary artery stenting and also some abdominal stents, right lower extremity [id number] amputation. FAMILY HISTORY: Father had coronary artery disease. Mother had breast cancer. She reports several siblings have kidney problems. HOME MEDICATIONS: Reviewed and include Abilify, aspirin, buproprion, iron, folic acid, Lasix, hydralazine, Humalog, isosorbide mononitrate, Synthroid, magnesium oxide, pantoprazole, ENTRESTO, Brilinta. She reports regular use of Aleve and Motrin. REVIEW OF SYSTEMS: Constitutional: She denies fevers or chills. Eyes: She denies visual changes to tearing. ENT: She denies rhinorrhea or odynophagia. Cardiac: She has a history of coronary artery disease and a history of congestive heart failure. She denies shortness of breath or leg edema. Respiratory: She denies cough or pleuritic chest pain. Gastrointestinal: She denies nausea, vomiting or diarrhea. Genitourinary: She reports left-sided flank pain and she reports improved urination with IV fluids. Musculoskeletal: She reports a right [id number] amputation and she is non ambulatory. She is wheelchair dependent. She denies any new myalgias. Endocrine: She reports insulin dependent diabetes and hypothyroidism. Hematoloic: She reports anemia. She denies easy bleeding or bruising. Neurologic: She denies seizure or syncope. Psychiatric: She reports a history of depression. Remainder of review of systems is negative or as per history of present illness (HPI). PHYSICAL EXAMINATION: Vital Signs: Temperature 97.4, pulse 78, respiratory rate 16, blood pressure 148/72, saturating 99% on room air. Intake yesterday and output yesterday were not recorded. Weight in the bed scale today is 63.9 kg. General: The patient is seen lying in bed, pleasant, awake, alert, oriented times three, interactive. Extraocular muscles are intact. Tongue is moist. Neck is supple. Jugular veins were not elevated. Cardiac: S1 and S2, regular rate and rhythm. No edema in the peripheries. Palpable radial pulse. Lungs are clear to auscultation bilaterally. No crackle, rale or wheeze. Abdomen is soft. There is tenderness on the left flank. Bladder is not distended. Skin: Shows normal temperature and turgor. Extremities: Show right itqtp-[id number]-[id number] amputation. There is no edema of the stump. The left lower extremity is without any edema as well. Neurologic: She is oriented times three, cooperative with physical exam and interactive. Psychiatric: Appropriate mood and effect. LABORATORY DATA: Sodium 135, potassium 4.2, bicarbonate 20, BUN 87, creatinine 2.8, hemoglobin 11.5. IMAGING STUDIES: Renal ultrasound December 28 shows thinned renal cortex and decreased kidney size on the right 8.2 cm and normal kidney size on the left 9.8 cm. No hydronephrosis. INPATIENT MEDICATIONS: I discontinued the patient's ENTRESTO and I have held her Lasix. She is receiving normal saline at 75 mL/hr, Abilify 2 mg p.o. daily, aspirin 81 mg p.o. daily, Wellbutrin 150 mg p.o. daily, ferrous sulfate 325 mg p.o. daily, folic acid 1 mg p.o. daily, heparin 5000 units subcu q. 8 hours, hydralazine 50 mg p.o. b.i.d., isosorbide mononitrate 90 mg p.o. q.h.s., Synthroid 25 mcg p.o. daily, Ativan p.r.n. anxiety, magnesium 400 mg p.o. daily, Protonix 40 mg p.o. daily, Brilinta 90 mg p.o. b.i.d. PROBLEMS: 1. KEYLA on CKD Stage 4. The patient's serum creatinine is at her usual baseline, but she does have an elevation in her blood urea nitrogen. This is in the setting of nonobstructive left-sided nephrolithiasis. The patient reports that she has been taking several tablets of both Aleve and Motrin at home for the past few days for her flank pain. I also note that she is on ENTRESTO for her systolic congestive heart failure. Her increase in blood urea nitrogen is likely due to a combination of both. Her ENTRESTO has been discontinued and I would advise against using it as an outpatient given her advanced chronic kidney disease. Her Lasix is presently held and she is receiving gentle IV fluids which I would plan to discontinue in the coming 24 hours. Her renal function is expected to improve with holding of the ENTRESTO and the Lasix and with gentle IV fluid. 2. Systolic congestive heart failure. Volume status is presently acceptable. Would keep her off of ENTRESTO given her advanced chronic kidney disease underlying. Lasix is presently on hold and she is receiving gentle IV fluids in the setting of nonobstructive nephrolithiasis and mild KEYLA. I would plan to discontinue her IV fluids in 24 hours. We will keep a close eye on her volume status. 3. Hypertension. Blood pressures are acceptable. Systolic is 140s to 150s. Continue with hydralazine and Imdur. She continues on hydralazine and isosorbide. She is allergic to beta blockers. Her ENTRESTO is presently held because of worsening renal parameters. Thank you for involving me in the care of Ms. Tabby Sosa. I will be happy to follow her along with you.
[2018-12-28 14:00] VITALS: BP 145/82
[2018-12-28 18:00] VITALS: BP 138/79
[2018-12-28 18:38] LABS: APPEARANCE, URINE CLEAR (CLEAR); BACTERIA, URINE AUTO NEGATIVE (NEGATIVE); BILIRUBIN, URINE AUTO NEGATIVE (NEGATIVE); BLOOD, URINE BLOOD NEGATIVE (NEGATIVE); COLOR, URINE STRAW (YELLOW); GLUCOSE, URINE (UA) AUTO NEGATIVE (NEGATIVE); KETONE, URINE AUTO NEGATIVE (NEGATIVE); LEUKOCYTE ESTERASE, URINE AUTO NEGATIVE (NEGATIVE); NITRITE, URINE AUTO NEGATIVE (NEGATIVE); PROTEIN, URINE AUTO 2+ mg/dL (NEGATIVE); RBC, URINE AUTO 0 /HPF (0-3); SPECIFIC GRAVITY URINE AUTO 1.012 (1.002-1.035); SQUAMOUS EPITHELIAL CELL UR AU 1 /HPF (0-6); UROBILINOGEN, URINE AUTO 0.2 mg/dL (0.0-2.0); WBC, URINE AUTO 0 /HPF (0-3)
[2018-12-28 22:00] VITALS: BP 156/85
--- NOTE | 2018-12-28 23:42 | IPNPDOC ---
Subjective Date Seen The patient was seen on 12/28/18. Subjective Chief Complaint/HPI She still has L-sided flank pain. Mildly improved. Per patient, due to pain, she had to use multiple pain medications including tylenol, ibuprofen, alleve, motrin. She denies a fever, chill, nausea, or vomiting. General: Denies: ROS Unobtainable, Chills, Night Sweats, Fatigue, Malaise, Normal Appetite, Other Symptoms Constitutional: Denies: Chills, Fever, Malaise, Night Sweats, Weakness, Fatigue, Weight Loss, Lethargy, Other Eyes: Denies: Pain, Vision change, Conjunctivae inflammation, Eyelid inflammation, Redness, Other ENT: Denies: Head Aches, Ear Pain, Dysphagia, Sinus Congestion, Post Nasal Drip, Sore Throat, Epistaxis, Other Symptoms Skin: Denies: Rash, Lesions, Jaundice, Bruising, Itching, Dry, Breakdown, Nail Changes, Other Pulmonary: Denies: Dyspnea, Cough, Pleuritic Chest Pain, Other Symptoms Cardiovascular: Denies: Chest Pain, Palpitations, Orthopnea, Paroxysmal Noc. Dy spnea, Edema, Lt Headedness, Other Symptoms Gastrointestinal: Denies: Nausea, Vomiting, Abdominal Pain, Diarrhea, Constipation, Melena, Hematochezia, Other Symptoms Genitourinary: Reports: Other Symptoms (flank pain , L) Hematologic: Denies: Bruising, Bleeding Excessively, Petecchia, Purpura, Enlarged Lymph Nodes, Other Hematologic Musculoskeletal: Denies: Neck Pain, Back Pain, Shoulder Pain, Arm Pain, Hand P ain, Leg Pain, Foot Pain, Joint Pain, Muscle Pain, Spasms, Other Symptoms Neurological: Denies: Weakness, Numbness, Incoordination, Change in speech, Confusion, Seizures, Other Symptoms Objective Physical Examination General Exam: Positive: Alert, Cooperative Eye Exam: Positive: PERRLA, Conjunctiva & lids normal ENT Exam: Positive: Atraumatic, Mucous membr. moist/pink Neck Exam: Positive: Supple Chest Exam: Positive: Clear to auscultation Heart Exam: Positive: Rate Normal Telemetry: Positive: No significant arrhythmia Abdomen Exam: Positive: Normal bowel sounds Skin Exam: Positive: Nl turgor and temperature Neuro Exam: Positive: Normal Gait, Normal Speech Psych Exam: Positive: Mood NL Assessment /Plan Problems (1) Flank pain Problem Text: # Nephrolithiasis and uremia - Nonobstructing from CT. - Her baseline Cr is 2.5-2.8, and currently, it is 2.8. - She was taking NSAIDs for flank pain, and this seems to have contributed. Per nephrology, entresto, heart failure medication can also cause kidney function suppression. Following the recommendation, hold it off. - Continue IVF hydration. - Will consult urology, given persistent flank pain. - Pain control with tylenol. No NSAIDs. - Zofran for nausea. # CAD - s/p stent placement. No reported chest pain. - Continue home meds. # Systolic CHF stable - Continue to hold entresto given worsening renal function. - She is noted to be allergic to metoprolol. # DM type 2 controlled. - sliding scale insulin at home. - Resume sliding scale insulin. - hypoglycemic protocol PRN. # Hypothyroidism - Continue home meds # HTN - Cont. hydralazine and imdur. Plan/VTE VTE Prophylaxis Ordered?: Yes (heparin) VS, I&O, 24H, [facility] Vital Signs/I&O Vital Signs Date Time Temp Pulse Resp B/P (MAP) Pulse Ox O2 Delivery O2 Flow Rate FiO2 12/28/18 22:00 96.8 80 18 156/85 (108) 98 I&O- Last 24 Hours up to 6 AM 12/28/18 06:00 Intake Total 475 ml Output Total 300 ml Balance 175 ml Laboratory Data 24H LABS Laboratory Tests 2 12/28/18 01:02: Nucleated Red Blood Cells % (auto) 0.0, Anion Gap 9, Glomerular Filtration Rate 17.4L, Blood Urea Nitrogen 87H, Creatinine 2.81H, Sodium Level 135L, Potassium Level 4.2, Chloride Level 106, Carbon Dioxide Level 20L, Calcium Level 8.1L 12/28/18 07:04: Bedside Glucose (Misc Panel) 129H 12/28/18 12:41: Bedside Glucose (Misc Panel) 126H 12/28/18 16:27: Bedside Glucose (Misc Panel) 168H 12/28/18 17:39: Urine Appearance CLEAR, Urine Color STRAW, Urine pH 5.0, Urine Specific [place] 1.012, Urine Protein 2+H, Urine Glucose (UA) NEGATIVE, Urine Ketones NEGATIVE, Urine Urobilinogen 0.2, Urine Bilirubin NEGATIVE, Urine Leukocyte Esterase NEGATIVE, Urine Blood NEGATIVE, Urine Nitrite NEGATIVE, Urine WBC (Auto) 0, Urine RBC (Auto) 0, Urine Hyaline Casts (Auto) 0, Urine Bacteria (Auto) NEGATIVE, Urine Squamous Epithelial Cells 1, Urine Sperm (Auto) 12/28/18 20:43: Bedside Glucose (Misc Panel) 170H CBC/BMP Laboratory Tests 12/28/18 01:02 Red Blood Count 3.64 L, Mean Corpuscular Volume 91.8, Mean Corpuscular Hemoglo bin 31.6, Mean Corpuscular Hemoglobin Concent 34.4, Red Cell Distribution Width 13.7, Calcium Level 8.1 L KRYSTA BURNETT MD Dec 28, 2018 23:42
[2018-12-29 02:00] VITALS: BP 145/81
[2018-12-29] MEDS: NS 1,000 ML IV SCH ×3 (05:37→20:53)
[2018-12-29] MEDS: HEPARIN SOD (PORCINE) 5000 UNITS/ML VIAL SC SCH ×3 (05:38→20:53)
[2018-12-29] MEDS: LEVOTHYROXINE 25MCG TABLET (0.025MG) PO SCH (05:38)
[2018-12-29 06:00] VITALS: BP 144/76
[2018-12-29 06:24] LABS: HEMATOCRIT 29.8 % (36.0-47.0); HEMOGLOBIN 10.1 g/dl (12.0-15.5); MEAN CORPUSCULAR HEMOGLOBIN 31.2 pg (27.0-33.0); MEAN CORPUSCULAR HGB CONC 33.9 g/dl (32.0-36.5); PLATELET COUNT, AUTOMATED 399 10^3/uL (150-450); RED BLOOD COUNT 3.24 10^6/uL (4.00-5.40); WHITE BLOOD COUNT 5.9 10^3/uL (4.0-10.0)
[2018-12-29 06:55] LABS: ALBUMIN 2.9 GM/DL (3.2-5.2); BILIRUBIN,TOTAL 0.4 MG/DL (0.2-1.0); CALCIUM LEVEL 8.2 MG/DL (8.8-10.2); CREATININE FOR GFR 2.36 MG/DL (0.55-1.30); GLOMERULAR FILTRATION RATE 21.2 (>39); POTASSIUM SERUM 3.9 MEQ/L (3.5-5.1); TOTAL PROTEIN 6.3 GM/DL (6.4-8.2)
[2018-12-29] MEDS: oxyCODONE 5MG TAB PO PRN ×3 (08:34→20:52)
[2018-12-29] MEDS: ASPIRIN 81 MG ENTERIC TAB PO SCH (08:34)
[2018-12-29] MEDS: ARIPiprazole 2 MG TAB PO SCH (08:34)
[2018-12-29] MEDS: **hydrALAZINE** 50 MG TAB PO SCH ×2 (08:34→20:51)
[2018-12-29] MEDS: PANTOPRAZOLE 40MG TAB (PROTONIX) PO SCH (08:35)
[2018-12-29] MEDS: buPROPion **XL** TABLET 150MG (WELLBUTRIN XL) PO SCH (08:35)
[2018-12-29] MEDS: FERROUS SULFATE 325MG TAB PO SCH (08:35)
[2018-12-29] MEDS: TICAGRELOR 90 MG TABLET (BRILINTA) PO SCH ×2 (08:35→20:51)
[2018-12-29] MEDS: HumaLOG INSULIN (NovoLOG) PER UNIT SC SCH ×4 (08:36→21:00)
[2018-12-29] MEDS: TRIAMCINOLONE ACET 0.1% CREAM 80 GM TOP SCH (08:37)
[2018-12-29 10:00] VITALS: BP 132/64
[2018-12-29] MEDS: MAGNESIUM OXIDE 400 MG TAB (MAG-OX) PO SCH (11:37)
[2018-12-29] MEDS: FOLIC ACID 1 MG TAB PO SCH (11:37)
--- NOTE | 2018-12-29 13:39 | REP ---
REASON: Left sided renal colic. PRIORS: None. Limited evaluation of the solid intra-abdominal organs show no gross abnormalities. Limited evaluation of the pancreas and adrenal glands show no gross abnormalities. There are three small calcifications in the left kidney likely renovascular calcifications. There are no right renal calcifications. There is no hydronephrosis or hydroureter. There are no urinary bladder calcifications. There is no free fluid or free air in the abdomen. There is extensive calcific atherosclerotic change since in the aorta which extends to the celiac axis, SMA, and common iliac arteries. The bowel loops and their mesenteries have an unremarkable appearance. CT PELVIS: There is no mass or adenopathy. There is no free fluid or free air. The bowel loops and their mesenteries have an unremarkable appearance. Bone window technique throughout the exam shows spine, hip, sacroiliac joint degenerative changes. The lung bases are clear. IMPRESSION: Chronic changes as described above. No evidence of acute intra-abdominal or intrapelvic disease. Electronically Signed by Richard Pederson DO 12/29/2018 03:35 P
[2018-12-29 14:00] VITALS: BP 162/76
--- NOTE | 2018-12-29 17:00 | IPNPDOC ---
Subjective Date Seen The patient was seen on 12/29/18. Subjective Chief Complaint/HPI The patient has persistent L upper abdominal pain. It is constant pain, below the breast. Denies nausea, vomiting, or diarrhea, constipation, blood in stool or urine. General: Denies: ROS Unobtainable, Chills, Night Sweats, Fatigue, Malaise, Normal Appetite, Other Symptoms Constitutional: Denies: Chills, Fever, Malaise, Night Sweats, Weakness, Fatigue, Weight Loss, Lethargy, Other Eyes: Denies: Pain, Vision change, Conjunctivae inflammation, Eyelid inflammation, Redness, Other ENT: Denies: Head Aches, Ear Pain, Dysphagia, Sinus Congestion, Post Nasal D rip, Sore Throat, Epistaxis, Other Symptoms Skin: Denies: Rash, Lesions, Jaundice, Bruising, Itching, Dry, Breakdown, Nail Changes, Other Pulmonary: Denies: Dyspnea, Cough, Pleuritic Chest Pain, Other Symptoms Cardiovascular: Denies: Chest Pain, Palpitations, Orthopnea, Paroxysmal Noc. Dyspnea, Edema, Lt Headedness, Other Symptoms Gastrointestinal: Reports: Abdominal Pain Genitourinary: Denies: Dysuria, Frequency, Incontinence, Hematuria, Retention, Other Symptoms Hematologic: Denies: Bruising, Bleeding Excessively, Petecchia, Purpura, Enlarged Lymph Nodes, Other Hematologic Endocrine: Denies: Polydipsia, Polyphagia, Polyuria, Heat Intolerance, Cold Intolerance, Other Endocrine Sx Musculoskeletal: Denies: Neck Pain, Back Pain, Shoulder Pain, Arm Pain, Hand Pain, Leg Pain, Foot Pain, Joint Pain, Muscle Pain, Spasms, Other Symptoms Neurological: Denies: Weakness, Numbness, Incoordination, Change in speech, Confusion, Seizures, Other Symptoms Psych: Denies: Mood Normal, Anxiety, Depression, Memory Issues, Thoughts of Self Harm, Anger, Thoughts of Harming Other, Other Psych Objective Physical Examination General Exam: Positive: Alert, Cooperative Eye Exam: Positive: PERRLA, Conjunctiva & lids normal ENT Exam: Positive: Atraumatic, Mucous membr. moist/pink Neck Exam: Positive: Supple Chest Exam: Positive: Clear to auscultation, Other (L rib below the breast is tender) Heart Exam: Positive: Rate Normal Telemetry: Positive: No significant arrhythmia Abdomen Exam: Positive: Normal bowel sounds Skin Exam: Positive: Nl turgor and temperature Neuro Exam: Positive: Normal Gait, Normal Speech Psych Exam: Positive: Mood NL Assessment /Plan Problems (1) Flank pain Problem Text: # Left lower chest pain - She had CT abd/pelvis today, and it shows no evidence of kidney stones. No evidence of any acute pathology in the abdomen. I did a detailed physical exam and found that the rib below the L breast is very tender. I did not palpate any mass in the breast. She has had annual mammograms. I highly suspect that this is musculoskeletal or rib fracture. - Will have rib DX. She cannot take NSAIDs given kidney injury. Will consider prednisone short course to relieve inflammation if this is the case. - Continue pain medications. # Uremia - Slowly improving on IV hydration. # CAD - s/p stent placement. No reported chest pain. - Continue home meds. # Systolic CHF stable - Continue to hold entresto given worsening renal function. - She is noted to be allergic to metoprolol. # DM type 2 controlled. - sliding scale insulin at home. - Resume sliding scale insulin. - hypoglycemic protocol PRN. # Hypothyroidism - Continue home meds # HTN - Cont. hydralazine and imdur. Plan/VTE VTE Prophylaxis Ordered?: Yes (heparin) VS, I&O, 24H, [facility] Vital Signs/I&O Vital Signs Date Time Temp Pulse Resp B/P (MAP) Pulse Ox O2 Delivery O2 Flow Rate FiO2 12/29/18 15:10 18 12/29/18 14:00 96.7 78 162/76 (104) 93 I&O- Last 24 Hours up to 6 AM 12/29/18 06:00 Intake Total 1870 ml Output Total 550 ml Balance 1320 ml Laboratory Data 24H LABS Laboratory Tests 2 12/28/18 17:39: Urine Appearance CLEAR, Urine Color STRAW, Urine pH 5.0, Urine Specific [place] 1.012, Urine Protein 2+H, Urine Glucose (UA) NEGATIVE, Urine Ketones NEGATIVE, Urine Urobilinogen 0.2, Urine Bilirubin NEGATIVE, Urine Leukocyte Esterase NEGA TIVE, Urine Blood NEGATIVE, Urine Nitrite NEGATIVE, Urine WBC (Auto) 0, Urine RBC (Auto) 0, Urine Hyaline Casts (Auto) 0, Urine Bacteria (Auto) NEGATIVE, Urine Squamous Epithelial Cells 1, Urine Sperm (Auto) 12/28/18 20:43: Bedside Glucose (Misc Panel) 170H 12/29/18 06:08: Nucleated Red Blood Cells % (auto) 0.0, Anion Gap 10, Glomerular Filtration Rate 21.2L, Blood Urea Nitrogen 74H, Creatinine 2.36H, Sodium Level 139, Potassium Level 3.9, Chloride Level 110H, Carbon Dioxide Level 19L, Calcium Level 8.2L, Aspartate Amino Transf (AST/SGOT) 11, Alanine Aminotransferase (ALT/SGPT) 18, Alkaline Phosphatase 102, Total Bilirubin 0.4, Total Protein 6.3L, Albumin 2.9L, Albumin/Globulin Ratio 0.85L 12/29/18 06:22: Bedside Glucose (Misc Panel) 122H 12/29/18 11:32: Bedside Glucose (Misc Panel) 112H CBC/BMP Laboratory Tests 12/29/18 06:08 Red Blood Count 3.24 L, Mean Corpuscular Volume 92.0, Mean Corpuscular Hemoglobin 31.2, Mean Corpuscular Hemoglobin Concent 33.9, Red Cell Distribution Width 13.7, Calcium Level 8.2 L, Aspartate Amino Transf (AST/SGOT) 11, Alanine Aminotransferase (ALT/SGPT) 18, Alkaline Phosphatase 102, Total Bilirubin 0.4, Total Protein 6.3 L, Albumin 2.9 L KRYSTA BURNETT MD Dec 29, 2018 17:00
--- NOTE | 2018-12-29 18:29 | REP ---
HISTORY: Rib pain on the left. COMPARISON: None. Four views of the right and left ribs show a possible cortical irregularity seen involving the anterior end of the left 8th rib. IMPRESSION: Possible anterior left 8th rib fracture seen only on one view. Correlate clinically for local pain. Electronically Signed by Richard Pederson DO 12/29/2018 07:46 P
[2018-12-29] MEDS: LORazepam 1 MG TAB PO PRN (20:53)
[2018-12-29] MEDS: ISOSORBIDE MON. (IMDUR) 30 MG XR TAB PO SCH (20:53)
[2018-12-29 22:00] VITALS: BP 146/70
--- NOTE | 2018-12-29 23:19 | IPN ---
DATE: 12/29/2018 SUBJECTIVE: Patient seen and examined this morning at the bedside. Her major complaint is left-sided pain. She otherwise denies any complaints. As I am unable to access her CT scan images from [facility], I have requested a CT scan to be done here today to further evaluate the left-sided pain. Vital signs: Temperature 96.7, pulse 78, respiratory rate 18, blood pressure 162/76, saturating 93% on room air. Intake yesterday was 2.1 liters, urine output yesterday was 850. Weight on the bed scale today is not recorded. General: The patient is seen sitting out of bed to the chair, awake, alert, oriented, in no acute distress. Extraocular muscles are intact. Tongue is moist. Neck is supple. Jugular veins are not elevated. Cardiac: S1, S2, regular rate and rhythm. No edema in the peripheries. Palpable radial pulse. Lungs are clear to auscultation bilaterally. No crackle, rale or wheeze. Abdomen is soft. Bladder is not distended. Skin: Shows normal temperature and turgor. Extremities show right [id number] amputation; there is no edema of the stump. The left lower extremity is without edema. She is oriented times three, cooperative with physical exam and interactive. Psychiatric: Appropriate mood and affect. LABORATORY DATA: White count 5.9, hemoglobin 10.1, sodium 139, potassium 3.9, bicarbonate 19, BUN 74, creatinine 2.3 IMAGING STUDIES: CT abdomen and pelvis, noncontrast: No hydronephrosis. No hydroureter. Small renovascular calcifications are present. INPATIENT MEDICATIONS: I am stopping the patient's normal saline. Primary team has started her on oxycodone. Remainder of medications are unchanged from prior. PROBLEMS: 1. Acute kidney injury (KEYLA) on chronic kidney disease (CKD) stage IV. Patient's serum creatinine is at her usual baseline, but she did have an elevation in her blood urea nitrogen. This is likely due to her using both Aleve and Motrin for several days at home for left-sided pain with also concomitant use of Entresto and diuretic. Her increase in blood urea nitrogen is likely due to a combination of all of the above. I have advised her to stay off of nonsteroidal anti-inflammatory drugs (NSAIDs). Her Entresto has also been discontinued. Her Lasix is presently held, and she did receive some gentle IV fluids, which I am now discontinuing because of her history of heart failure. Her blood urea nitrogen has improved, and her Lasix can be resumed upon discharge I would keep her off of the Entresto for now. 2. Systolic congestive heart failure. Volume status is presently acceptable. IV fluids are being discontinued. Lasix can be resumed as an outpatient. Would keep her off of Entresto given her advanced CKD underlying. 3. Left-sided renal colic. Outside CT scan had apparently shown nonobstructing stones, but those images are not available for me to review. Hence, we requested a CT scan to be done here at [facility]. It did not show any significant stone burden. Primary team is evaluating for other causes of her pain and managing her pain regimen. 4. Hypertension. Blood pressures are acceptable. She continues with hydralazine and isosorbide. IV fluids are being discontinued. Would keep her off of Entresto for now. 5. Disposition: The patient can likely be discharged in the coming 24 hours.
[2018-12-30 02:00] VITALS: BP 136/66
[2018-12-30] MEDS: HEPARIN SOD (PORCINE) 5000 UNITS/ML VIAL SC SCH (05:37)
[2018-12-30] MEDS: LEVOTHYROXINE 25MCG TABLET (0.025MG) PO SCH (05:37)
[2018-12-30] MEDS: oxyCODONE 5MG TAB PO PRN ×2 (05:39→11:52)
[2018-12-30 06:00] VITALS: BP 132/72
[2018-12-30 06:45] LABS: HEMATOCRIT 26.3 % (36.0-47.0); HEMOGLOBIN 8.8 g/dl (12.0-15.5); MEAN CORPUSCULAR HEMOGLOBIN 30.2 pg (27.0-33.0); MEAN CORPUSCULAR HGB CONC 33.5 g/dl (32.0-36.5); MEAN CORPUSCULAR VOLUME 90.4 fl (80.0-96.0); PLATELET COUNT, AUTOMATED 341 10^3/uL (150-450); RED BLOOD COUNT 2.91 10^6/uL (4.00-5.40); WHITE BLOOD COUNT 5.7 10^3/uL (4.0-10.0)
[2018-12-30 07:08] LABS: ALBUMIN 2.9 GM/DL (3.2-5.2); BILIRUBIN,TOTAL 0.3 MG/DL (0.2-1.0); CALCIUM LEVEL 8.7 MG/DL (8.8-10.2); CREATININE FOR GFR 2.11 MG/DL (0.55-1.30); GLOMERULAR FILTRATION RATE 24.2 (>39); POTASSIUM SERUM 4.2 MEQ/L (3.5-5.1)
[2018-12-30 08:16] VITALS: BP 132/72
[2018-12-30] MEDS: ARIPiprazole 2 MG TAB PO SCH (08:16)
[2018-12-30] MEDS: ASPIRIN 81 MG ENTERIC TAB PO SCH (08:16)
[2018-12-30] MEDS: **hydrALAZINE** 50 MG TAB PO SCH (08:16)
[2018-12-30] MEDS: FERROUS SULFATE 325MG TAB PO SCH (08:17)
[2018-12-30] MEDS: buPROPion **XL** TABLET 150MG (WELLBUTRIN XL) PO SCH (08:17)
[2018-12-30] MEDS: TICAGRELOR 90 MG TABLET (BRILINTA) PO SCH (08:17)
[2018-12-30] MEDS: HumaLOG INSULIN (NovoLOG) PER UNIT SC SCH ×2 (08:17→11:50)
[2018-12-30] MEDS: PANTOPRAZOLE 40MG TAB (PROTONIX) PO SCH (08:17)
[2018-12-30] MEDS: TRIAMCINOLONE ACET 0.1% CREAM 80 GM TOP SCH (08:18)
[2018-12-30] MEDS ORDERED: PRED20TA PO (09:47)
[2018-12-30] MEDS ORDERED: LASI20TA3 PO (09:48)
[2018-12-30] MEDS ORDERED: predniSONE 20 MG TAB PO ONE (10:00)
[2018-12-30] MEDS: FOLIC ACID 1 MG TAB PO SCH (11:50)
[2018-12-30] MEDS: MAGNESIUM OXIDE 400 MG TAB (MAG-OX) PO SCH (11:50)
--- NOTE | 2019-01-02 18:25 | DS.PDOC ---
Discharge Summary General Date of Admission Dec 27, 2018 at 22:45 Date of Discharge 12/30/2018 Discharge Summary PROCEDURES PERFORMED DURING STAY: [None]. ADMITTING DIAGNOSES: 1. MAMIE abdominal pain. DISCHARGE DIAGNOSES: 1. KEYLA and rib fracture. COMPLICATIONS/CHIEF COMPLAINT: Renal Colic. HISTORY OF PRESENT ILLNESS: Patient is 78-year-old female past medical history of HFrEF, CKD IV, HTN, Depression, IDDM, Hypothyroidism, PAD, and CAD s/p stents was transferred from [facility] with reported flank pain and uremia. Pain was described as L. sided abdominal radiating to the back, intermittent with high intensity. CT abdomen showed nonobstructing stone. However, ER at [facility] was concern due to BUN of 90 there and requesting nephrology evaluation. Patient normally follows with Dr. Brantley. Patient denies any complaints apart from intermittent abdominal pain. HOSPITAL COURSE: The patient complained of L flank pain and lower chest pain. The CT scan outside shows "renal stones"? We repeated CT abd/pelvis, but there was no evidence of renal stone. No evidence of any acute pathology in the abdomen. I did a detailed physical exam and found that the rib below the L breast is very tender. I did not palpate any mass in the breast. She has had annual mammograms. This was suspected to be musculoskeletal or rib fracture. She had the rib DX, and it showed L 8th rib fracture. She cannot take NSAIDs given kidney injury. She was prescribed with prednisone 20 mg short course to relieve inflammation. She was also found to have KEYLA and uremia. Renal function slowly improving on IV hydration, and Cr before discharge was lower than her known baseline. Advised not to take NSAIDs. For chronic systolic CHF, she was taking entresto, but it was held off during the hospitalization. It was re-initiated before she was discharged. For DM type 2 controlled, we continued sliding scale insulin at home. For hypothyroidism, we continued home meds. For HTN, continued hydralazine and imdur. DISCHARGE MEDICATIONS: Please see below. ALLERGIES: Please see below. PHYSICAL EXAMINATION ON DISCHARGE: VITAL SIGNS: Please see below. General Exam: Positive: Alert, Cooperative Eye Exam: Positive: PERRLA, Conjunctiva & lids normal ENT Exam: Positive: Atraumatic, Mucous membr. moist/pink Neck Exam: Positive: Supple Chest Exam: Positive: Clear to auscultation, Other (L rib below the breast is tender) Heart Exam: Positive: Rate Normal Telemetry: Positive: No significant arrhythmia Abdomen Exam: Positive: Normal bowel sounds Skin Exam: Positive: Nl turgor and temperature Neuro Exam: Positive: Normal Gait, Normal Speech Psych Exam: Positive: Mood NL LABORATORY DATA: Please see below. DISCHARGE PLAN: The patient will follow her primary care physician. DISPOSITION: Home, Self-Care. Vital Signs/I&Os Vital Signs Date Time Temp Pulse Resp B/P (MAP) Pulse Ox O2 Delivery O2 Flow Rate FiO2 12/30/18 12:26 18 12/30/18 08:16 132/72 12/30/18 06:00 97.9 68 96 Discharge Medications Scheduled Aripiprazole (Abilify) 2 Mg Tab, 2 MG PO DAILY, (Reported) Aspirin (Aspirin EC) 81 Mg Tabec, 81 MG PO DAILY, (Reported) Bupropion Hcl (Bupropion Xl) 150 Mg Tab, 150 MG PO DAILY, (Reported) Ferrous Sulfate (Ferrous Sulfate) 325 Mg Tab, 325 MG PO DAILY, (Reported) Folic Acid (Folic Acid) 1 Mg Tab, 1 MG PO DAILY, (Reported) TAKES AT LUNCHTIME Furosemide (Lasix) 20 Mg Tablet, 10 MG PO DAILY Hydralazine HCl (Hydralazine HCl) 50 Mg Tablet, 50 MG PO BID, (Reported) Insulin Lispro (Humalog) 100 Unit/Ml Inj, 1 DOSE SC ACHS, (Reported) PER SLIDING SCALE Isosorbide Mononitrate (Isosorbide Mononitrate ER) 30 Mg Tab, 90 MG PO QHS, (Reported) Levothyroxine Sodium (Synthroid) 25 Mcg Tab, 25 MCG PO DAILY, (Reported) Magnesium Oxide (Magnesium Oxide) 400 Mg Tab, 400 MG PO DAILY, (Reported) TAKES AT LUNCH Pantoprazole Sodium (Pantoprazole Sodium) 40 Mg Tab, 40 MG PO DAILY, (Reported) Prednisone (Prednisone) 20 Mg Tablet, 20 MG PO ONCE start this medication on 12/31/18 and finish 4 day course Sacubitril/Valsartan (Entresto 49 mg-51 mg Tablet) 1 Each Tablet, 1 TAB PO BID, (Reported) Ticagrelor Base (Brilinta) 90 Mg Tab, 90 MG PO BID, (Reported) Triamcinolone Acet (Triamcinolone Acetonide 0.1% Crm) 80 Gm Cream..g., 1 DOSE TOP DAILY, (Reported) ON TAILBONE Scheduled PRN Acetaminophen (Tylenol Extra Strength) 500 Mg Tablet, 1,000 MG PO Q6H PRN for PAIN, (Reported) Albuterol Sulfate (Proair Hfa) 8.5 Gm Hfa.aer.ad, 2 PUFF INH Q6H PRN for SHORTNESS OF BREATH, (Reported) Dextromethorphan HBr (Daytime Cough) 5 Mg/5 Ml Syrup, 15 MG PO BID PRN for COUGH, (Reported) Hydroxyzine HCl (Hydroxyzine HCl) 10 Mg Tab, 10 MG PO TID PRN for ANXIETY, (Reported) Ipratropium/Albuterol Sulfate (Iprat-Albut 0.5-3(2.5) mg/3 ml) 3 Ml Ampul.neb, 1 VIAL INH Q6H PRN for SHORTNESS OF BREATH, (Reported) Lorazepam (Lorazepam) 1 Mg Tab, 1 MG PO BID PRN for ANXIETY, (Reported) Nitroglycerin (Nitroglycerin) 0.4 Mg Tab.subl, 0.4 MG SL NITRO PRN for CHEST PAIN, (Reported) Ondansetron HCl (Ondansetron HCl) 4 Mg Tablet, 4 MG PO BID PRN for NAUSEA, (Reported) Allergies Coded Allergies: ciprofloxacin (Verified Allergy, Mild, ITCHY, 11/01/18) Sulfa (Sulfonamide Antibiotics) (Verified Allergy, Unknown, 11/01/18) atorvastatin (Verified Allergy, Unknown, 11/01/18) metoprolol (Verified Allergy, Unknown, 11/01/18) KRYSTA BURNETT MD Jan 02, 2019 18:25
== END 2018-12-30 13:28 | disposition home or self-care (01) ==
LOC: M MSPAV 22:45 → INTOOBSV 22:45
PROVIDERS: ADMIT Student in an Organized Health Care Education/Training Program; ATTEND Internal Medicine
DX: N17.9 Acute kidney failure, unspecified (principal); S22.32XA Fracture of one rib, left side, initial encounter for closed fracture; X58.XXXA Exposure to other specified factors, initial encounter; Y92.89 Other specified places as the place of occurrence of the external cause; N18.4 Chronic kidney disease, stage 4 (severe); I50.22 Chronic systolic (congestive) heart failure; E11.22 Type 2 diabetes mellitus with diabetic chronic kidney disease; E03.9 Hypothyroidism, unspecified; I13.0 Hypertensive heart and chronic kidney disease with heart failure and stage 1 through stage 4 chronic kidney disease, or unspecified chronic kidney disease; I25.10 Atherosclerotic heart disease of native coronary artery without angina pectoris; I73.9 Peripheral vascular disease, unspecified; Z95.5 Presence of coronary angioplasty implant and graft; Z79.899 Other long term (current) drug therapy; Z79.82 Long term (current) use of aspirin; Z79.02 Long term (current) use of antithrombotics/antiplatelets; Z79.4 Long term (current) use of insulin; Z79.52 Long term (current) use of systemic steroids; Z88.1 Allergy status to other antibiotic agents; Z88.2 Allergy status to sulfonamides; Z88.8 Allergy status to other drugs, medicaments and biological substances; Z89.511 Acquired absence of right leg below knee
CPT/HCPCS: 36415; 71110; 74176; 76775; 80048; 80053; 81001; 85027; 96360; 96361; 96372; 97161; G0378

== ENCOUNTER → 2019-04-26 | Outpatient (REF) | payer MEDICARE, MEDICAID ==
[~2019-04-26] MED LIST changes: +ACET-897 PO; +ENTR1TAB7 PO; +FURO40TA2 PO; +LASI20TA3 PO; +PRED20TA PO
[2019-04-28 10:54] LABS: HEPATITIS B CORE ANTIBODY IGM NEGATIVE (NEGATIVE); HEPATITIS B SURFACE ANTIBODY NEGATIVE (POSITIVE); HEPATITIS B SURFACE ANTIGEN NEGATIVE (NEGATIVE); HEPATITIS C VIRUS ABY INDEX 0.2 INDEX (<0.8)
== END ==
LOC: M LAB REF 12:57
PROVIDERS: ATTEND Internal Medicine Nephrology
DX: N18.6 End stage renal disease (principal); Z79.899 Other long term (current) drug therapy; Z79.82 Long term (current) use of aspirin

== ENCOUNTER 2019-04-28 07:18 | Outpatient (CLI) | payer MEDICARE, MEDICAID ==
[2019-04-28] VITALS (10 sets, daily range): BP systolic 142–180; BP diastolic 55–82
[~2019-04-28] VITALS: Ht 162.6 cm; Wt 62.8 kg
[2019-04-28] MEDS ORDERED: FUROSEMIDE 40 MG/4 ML VIAL (J1940) IV ONE (15:00)
== END 2019-04-28 15:50 | disposition home or self-care (01) ==
LOC: M INFU 07:18
PROVIDERS: ATTEND Internal Medicine Nephrology
DX: D64.9 Anemia, unspecified (principal); Z88.1 Allergy status to other antibiotic agents; Z88.2 Allergy status to sulfonamides; Z88.8 Allergy status to other drugs, medicaments and biological substances
CPT/HCPCS: 36430; 86850; 86900; 86901; 86920; 96374; J1940; P9016

== ENCOUNTER → 2019-05-02 | Outpatient (POV) | payer MEDICARE, MEDICAID ==
[~2019-05-02] VITALS: Ht 152.4 cm; Wt 62.7 kg
[2019-05-02 11:15] VITALS: BP 142/54
--- NOTE | 2019-05-02 16:02 | IRCOV ---
[facility] IR Consult Office Visit IR Consult Office Visit DATE: May 02, 2019 REASON FOR CONSULTATION/CHIEF COMPLAINT: Renal failure. Needs dialysis catheter. HISTORY OF PRESENT ILLNESS: 78-year-old female with anemia, hypertension and chronic kidney disease stage V presents for dialysis catheter consideration. Patient has diabetes, hypertension, peripheral vascular disease, coronary artery disease, CHF and CKD and she is on aspirin and Brilinta. She is under the care of micropaleontologist Dr. yoo who she sees annually. Patient and patient's family state last coronary stents were placed over 2 years ago. No chest pain, no shortness of breath, paroxysmal nocturnal dyspnea or orthopnea. ALLERGIES: Please see below. HOME MEDICATIONS: Please see below. PAST MEDICAL HISTORY: As above PAST SURGICAL HISTORY: AKA right 2018 coronary artery stenting 6 cholecystectomy appendectomy CABG left leg stents left femoropopliteal bypass FAMILY HISTORY: Nonsignificant. SOCIAL HISTORY: Nonsmoker. No alcohol or drugs. REVIEW OF SYSTEMS: Otherwise negative PHYSICAL EXAMINATION: VITAL SIGNS: Please see below. GENERAL APPEARANCE: Appears well. Comfortable at rest. HEENT: No scleral icterus. RESPIRATORY: Symmetric breath sounds. CARDIOVASCULAR: Systolic murmur. ABDOMEN: Soft nontender. EXTREMITIES: Right AKA. Left lower extremity warm to touch. NEUROLOGICAL: Alert and oriented. PSYCHIATRIC: Appropriate to circumstance. LABORATORY DATA: BUN 62 creatinine 3.32 sodium 134 potassium 4.9 hemoglobin 8.2 WBC 7 platelets 364 Imaging: I personally reviewed the CT without contrast from October 2018. Bilater al pleural effusions. Coronary artery stents and coronary calcifications. ASSESSMENT/PLAN: 78 female with coronary artery disease, CABG and prior cardiac stents placed greater than 2 years ago, needs PermCath placement for dialysis. She is on aspirin and Brilinta. I'm okay with aspirin but ideally I'd like to stop the Brilinta for 7 days for this catheter placement. Patient to check with Dr. Yoo if this is okay for 7 days. We will schedule the patient for the procedure to be done under moderate sedation. I spent 30 minutes in consultation with the patient. Thank you for this referral. Allergies Coded Allergies: ciprofloxacin (Verified Allergy, Mild, ITCHY, 11/01/18) Sulfa (Sulfonamide Antibiotics) (Verified Allergy, Unknown, 11/01/18) atorvastatin (Verified Allergy, Unknown, 11/01/18) metoprolol (Verified Allergy, Unknown, 11/01/18) Home Medications Scheduled Aripiprazole (Abilify), 2 MG PO DAILY, (Reported) Aspirin (Aspirin EC), 81 MG PO DAILY, (Reported) Bupropion Hcl (Bupropion Xl), 150 MG PO DAILY, (Reported) Ferrous Sulfate (Ferrous Sulfate), 325 MG PO DAILY, (Reported) Folic Acid (Folic Acid), 1 MG PO DAILY, (Reported) Furosemide (Lasix), 10 MG PO DAILY Hydralazine HCl (Hydralazine HCl), 50 MG PO BID, (Reported) Insulin Lispro (Humalog), 1 DOSE SC ACHS, (Reported) Isosorbide Mononitrate (Isosorbide Mononitrate ER), 90 MG PO QHS, (Reported) Levothyroxine Sodium (Synthroid), 25 MCG PO DAILY, (Reported) Magnesium Oxide (Magnesium Oxide), 400 MG PO DAILY, (Reported) Pantoprazole Sodium (Pantoprazole Sodium), 40 MG PO DAILY, (Reported) Sacubitril/Valsartan (Entresto 49 mg-51 mg Tablet), 1 TAB PO BID, (Reported) Ticagrelor Base (Brilinta), 90 MG PO BID, (Reported) Triamcinolone Acet (Triamcinolone Acetonide 0.1% Crm), 1 DOSE TOP DAILY, (Reported) Scheduled PRN Acetaminophen (Tylenol Extra Strength), 1,000 MG PO Q6H PRN for PAIN, (Reported) Albuterol Sulfate (Proair Hfa), 2 PUFF INH Q6H PRN for SHORTNESS OF BREATH, (Reported) Dextromethorphan HBr (Daytime Cough), 15 MG PO BID PRN for COUGH, (Reported) Hydroxyzine HCl (Hydroxyzine HCl), 10 MG PO TID PRN for ANXIETY, (Reported) Ipratropium/Albuterol Sulfate (Iprat-Albut 0.5-3(2.5) mg/3 ml), 1 VIAL INH Q6H PRN for SHORTNESS OF BREATH, (Reported) Lorazepam (Lorazepam), 1 MG PO BID PRN for ANXIETY, (Reported) Nitroglycerin (Nitroglycerin), 0.4 MG SL NITRO PRN for CHEST PAIN, (Reported) Ondansetron HCl (Ondansetron HCl), 4 MG PO BID PRN for NAUSEA, (Reported) Discontinued Medications Prednisone (Prednisone), 20 MG PO ONCE Discontinued Reason: PCP discontinued med VS, I&O, 24H, [place] Vital Signs/I&O Vital Signs Date Time Temp Pulse Resp B/P (MAP) Pulse Ox O2 Delivery O2 Flow Rate FiO2 05/02/19 11:15 97.3 69 16 142/54 (83) 99 MAYE ZAVALA MD May 02, 2019 16:02
== END ==
LOC: M IRPOV 11:17
PROVIDERS: ATTEND Radiology Diagnostic Radiology
DX: N18.5 Chronic kidney disease, stage 5 (principal); I13.11 Hypertensive heart and chronic kidney disease without heart failure, with stage 5 chronic kidney disease, or end stage renal disease; E11.22 Type 2 diabetes mellitus with diabetic chronic kidney disease; E11.51 Type 2 diabetes mellitus with diabetic peripheral angiopathy without gangrene; I73.9 Peripheral vascular disease, unspecified; I25.10 Atherosclerotic heart disease of native coronary artery without angina pectoris; I50.9 Heart failure, unspecified; D64.9 Anemia, unspecified; Z79.82 Long term (current) use of aspirin; Z79.01 Long term (current) use of anticoagulants; Z95.5 Presence of coronary angioplasty implant and graft; Z95.1 Presence of aortocoronary bypass graft

== ENCOUNTER → 2019-05-15 | Outpatient (CLI) | payer MEDICARE, MEDICAID ==
[~2019-05-15] MED LIST changes: +HEPARIN 1,000 UNITS/ML 10ML VIAL (FOR RADIOLOGY& DIALYSIS ONLY) As Ordered ONE; +LIDOCAINE 1% MDV 20ML VIAL As Ordered ONE; +MIDAZOLAM INJ 2 MG/2 ML VIAL (J2250) As Ordered ONE; +diphenhydrAMINE INJ 50MG/ML VIAL (J1200) As Ordered ONE; +fentaNYL 100 MCG/2 ML INJECTION (J3010) As Ordered ONE
[2019-05-15 14:00] VITALS: BP 179/78
--- NOTE | 2019-05-15 14:51 | REP ---
IR Permcath placement. IR ultrasound of the right neck. IR Permcath insertion under fluoroscopy and ultrasound guidance. IR moderate sedation. Clinical information: Renal failure. Needs dialysis. Physician: Dr. Irene. Procedure: The patient was advised of the benefits, risks and alternatives of the procedure and informed consent was obtained. The time-out was performed with verification of the patient's name, MRN, site of procedure and type of procedure to be performed. The patient was positioned in the supine position on the angiographic table. The site was prepped and draped in the usual sterile fashion. Moderate sedation was performed by the physician including the presence of an independent trained observer that assisted in monitoring the patient's level of consciousness and physiologic status. Following the administration of fentanyl and Versed , the physician spent 45 minutes of continuous face to face time with the patient. Ultrasound of the right neck reveals a patent and compressible right internal jugular vein. A cemetery vault installer radiograph reveals small right pleural effusion. The neck and anterior chest wall were anesthetized with lidocaine. The right internal jugular vein was accessed under ultrasound guidance, using a micro introducer needle, via a lateral approach. An 018 cope wire was advanced into the inferior vena cava. Incision at the internal jugular access site and anterior chest wall were made using a scalpel. The needle was removed and the tract was serially dilated under fluoroscopy guidance. A peel away sheath was advanced over the wire under fluoroscopy guidance into the Superior vena cava. The catheter was inserted through the subcutaneous tissues of the chest wall with a tunneling device. The catheter was then advanced through the peel-away sheath under fluoroscopy guidance to the right atrium. The peel-away sheath was removed. The catheter was positioned with the tip in the right atrium. The puncture site was closed. The catheter was secured in place using 2-0 Prolene. Both sites were cleansed and sterile dressings applied. At the conclusion of the procedure, the ports of the catheter aspirate and flush freely. The catheter was locked with high-dose heparin. The patient tolerated the procedure well and was returned to the PRU in stable condition. EBL: < 5 ml. Complications: None. Conclusion: Successful placement of right sided Palindrome Permcath for dialysis. The catheter is ready for immediate use. 2. Resume Walt. Thank you this referral. Electronically Signed by Anita Irene MD 05/15/2019 02:49 P
== END ==
LOC: M IRPRO 10:14
PROVIDERS: ATTEND Radiology Diagnostic Radiology
DX: N18.6 End stage renal disease (principal)
CPT/HCPCS: 36565; 76937; 77001; 99152; 99153; C1750; C1769; C1894; J2250; J3010